=== PATIENT | male | born 1940 | race Caucasian/White ===

== ENCOUNTER → 2018-01-08 17:45 | Outpatient (CLI) | payer MEDICARE, SELFPAY ==
[2018-01-08 18:08] LABS: Absolute Lymphocyte Count 1.55 X10^3/ul (0.83-4.51); Absolute Neutrophil Count 3.4 X10^3/uL (2.0-7.7); Basophil# 0.01 X10^3/uL; Basophil% 0.2 % (0-1); Eosinophil# 0.27 X10^3/uL; Eosinophils% 4.8 % (0-5); Hematocrit 41.1 % (40-54); Hemoglobin 12.5 g/dl (13.0-16.5); Lymphocyte # 1.55 X10^3/ul (4.0); Lymphocyte % 27.4 % (19-41); Mean Corp Hgb Conc 30.4 g/gl (32-36); Mean Corpuscular Volume 88.8 fL (80-94); Mean Platelet Vol. 11.7 fl (6.2-12.0); Monocyte# 0.47 X10^3/uL; Monocyte% 8.3 % (0-10); Neutrophil # 3.36 X10^3/uL (2.7-7.7); Neutrophil % 59.3 % (47-70); Platelet Count 205 K/mm3 (150-450); RBC Distribution Width CV 13.7 % (11.6-14.6); RBC Distribution Width SD 44.5 fl (35.1-43.9); Red Blood Count 4.63 M/mm3 (4.6-6.2); White Blood Count 5.7 K/mm3 (4.4-11.0)
[2018-01-08 18:11] LABS: POSITIVE COUNT NO; POSITIVE DIFFERENTIAL NO; POSITIVE MORPHOLOGY NO
[2018-01-08 18:18] LABS: ALB/GLOB Ratio 1.1 RATIO (0.9-2.4); AST(SGOT) 12 U/L (15-37); Alanine Aminotransfer ALT/SGPT 16 U/L (16-61); Albumin, Serum 3.5 g/dL (3.2-5.0); Alkaline Phosphatase 94 U/L (45-117); Anion Gap 7 (5-15); BUN 26 mg/dL (7-18); BUN/Creat Ratio 17.4 RATIO (10-20); Calcium,Total 9.2 mg/dL (8.5-10.1); Chloride 97 mmol/L (98-107); Creatinine, Serum 1.49 mg/dL (0.70-1.30); EST Glomerular Filtration Rate 49 mL/min (>60); Est Glom Filt Rate - Afr Amer 59 mL/min (>60); Globulin 3.2 g/dL (2.2-4.2); Glucose 245 mg/dL (74-106); Potassium 3.9 mmol/L (3.5-5.1); Protein, Total 6.7 g/dL (6.4-8.2); Sodium Level 140 mmol/L (136-145)
[2018-01-08 18:31] LABS: Hemoglobin A1c 8.1 % (4.2-6.3)
[2018-01-08 18:34] LABS: Vitamin B12 335 pg/mL (211-911)
== END ==
PROVIDERS: Family Provider Family Medicine; PCP Family Medicine; Visit Provider Nurse Practitioner Adult Health
DX: I10 Essential (primary) hypertension (principal); E11.65 Type 2 diabetes mellitus with hyperglycemia; E78.2 Mixed hyperlipidemia; E56.8 Deficiency of other vitamins; E53.8 Deficiency of other specified B group vitamins
CPT/HCPCS: 80053; 82306; 82607; 83036; 85025

== ENCOUNTER → 2018-04-30 18:32 | Outpatient (CLI) | payer MEDICARE, SELFPAY ==
[2018-04-30 19:06] LABS: Hematocrit 44.3 % (40-54); Hemoglobin 13.8 g/dl (13.0-16.5); Mean Corp Hgb Conc 31.2 g/gl (32-36); Mean Corpuscular Hgb 27.9 pg (27.0-32.0); Mean Corpuscular Volume 89.7 fL (80-94); Mean Platelet Vol. 11.2 fl (6.2-12.0); Platelet Count 226 K/mm3 (150-450); Red Blood Count 4.94 M/mm3 (4.6-6.2); White Blood Count 5.6 K/mm3 (4.4-11.0)
[2018-04-30 19:07] LABS: Scan Indicated on CBC? Y/N NO
[2018-04-30 19:19] LABS: Vitamin B12 443 pg/mL (211-911); Vitamin D,25 Hydroxy 32.3 ng/mL (29.95-100.01)
[2018-04-30 19:22] LABS: ALB/GLOB Ratio 1.2 RATIO (0.9-2.4); AST(SGOT) 14 U/L (15-37); Alanine Aminotransfer ALT/SGPT 18 U/L (16-61); Albumin, Serum 3.8 g/dL (3.2-5.0); Alkaline Phosphatase 106 U/L (45-117); BUN 21 mg/dL (7-18); Chloride 101 mmol/L (98-107); EST Glomerular Filtration Rate 52 mL/min (>60); Est Glom Filt Rate - Afr Amer 63 mL/min (>60); Globulin 3.3 g/dL (2.2-4.2); Glucose 153 mg/dL (74-106); Potassium 4.2 mmol/L (3.5-5.1); Protein, Total 7.1 g/dL (6.4-8.2); Sodium Level 140 mmol/L (136-145)
[2018-04-30 19:23] LABS: Anion Gap 6 (5-15)
[2018-04-30 19:27] LABS: Hemoglobin A1c 7.5 % (4.2-6.3)
== END ==
PROVIDERS: Family Provider Family Medicine; PCP Family Medicine; Referring Provider Nurse Practitioner Adult Health; Visit Provider Nurse Practitioner Adult Health
DX: I10 Essential (primary) hypertension (principal); E11.65 Type 2 diabetes mellitus with hyperglycemia; E56.8 Deficiency of other vitamins; E53.8 Deficiency of other specified B group vitamins
CPT/HCPCS: 80053; 82306; 82607; 83036; 85027

== ENCOUNTER 2018-05-10 21:08 | Inpatient (IN) | payer MEDICARE, MEDICAID, SELFPAY ==
[2018-05-10] VITALS (7 sets, daily range): BP systolic 138–166; BP diastolic 60–114; PULSE 65–91; RESP 15–20; TEMP 37; O2SAT 93–96; BMI 36.1
--- NOTE | 2018-05-10 21:29 | EKG12_ITS ---
Test Reason : Blood Pressure : / mmHG Vent. Rate : 066 BPM Atrial Rate : 066 BPM P-R Int : 162 ms QRS Dur : 098 ms QT Int : 426 ms P-R-T Axes : 013 093 098 degrees QTc Int : 446 ms Normal sinus rhythm Rightward axis Low voltage QRS Nonspecific T wave abnormality Poor R wave progression Abnormal ECG Confirmed by MATTHEW MARIA, DEVI ([id number]), video news editor OSMAR PACHECO ([id number]) on 05/11/2018 9:55:14 AM Referred By: Gerri Griffin Confirmed By:DEVI CASTRO MD
[2018-05-10 21:52] LABS: Basophil# 0.02 X10^3/uL; Basophil% 0.2 % (0-1); Eosinophils% 2.2 % (0-5); Hematocrit 39.5 % (40-54); Hemoglobin 11.8 g/dl (13.0-16.5); Lymphocyte % 17.8 % (19-41); Mean Corp Hgb Conc 29.9 g/gl (32-36); Mean Corpuscular Hgb 27.6 pg (27.0-32.0); Mean Corpuscular Volume 92.5 fL (80-94); Mean Platelet Vol. 10.2 fl (6.2-12.0); Monocyte# 1.04 X10^3/uL; Monocyte% 11.6 % (0-10); Neutrophil # 5.96 X10^3/uL (2.7-7.7); Neutrophil % 66.3 % (47-70); POSITIVE COUNT NO; POSITIVE DIFFERENTIAL NO; POSITIVE MORPHOLOGY NO; Platelet Count 243 K/mm3 (150-450); RBC Distribution Width CV 13.3 % (11.6-14.6); RBC Distribution Width SD 43.8 fl (35.1-43.9); Red Blood Count 4.27 M/mm3 (4.6-6.2)
[2018-05-10] MEDS: Ipratropium/Albuterol Sulfate 3 ML AMPUL.NEB INHALATION (21:55)
[2018-05-10] MEDS: 0.9% Normal Saline 1,000 ML 150 ML IV (21:55)
[2018-05-10] MEDS: Albuterol 2.5 MG/3 ML VIAL.NEB. INHALATION ×2 (21:56)
[2018-05-10 22:00] LABS: International Normalized Ratio 1.1
--- NOTE | 2018-05-10 22:10 | RAD_ITS ---
STUDY: X-RAY CHEST REASON FOR EXAM: Male, 78 years old. Generalized weakness being treated for pneumonia TECHNIQUE: Acquired COMPARISON: February 27, 2016 chest x-ray FINDINGS: The lung bases are obscured on the AP view. There is focal density in the right middle lobe and probably the left lingula. A portion of this may represent prominent cardiac fat pad. There is mild cardiac enlargement. Normal mediastinum and venkat. Normal visualized pulmonary arteries. Normal visualized aortic arch and descending thoracic aorta. Normal visualized thoracic spine. Normal visualized ribs, clavicles, and shoulders. There is no demonstrated abnormality of the visualized soft tissue structures of the upper abdomen. RAD/Chest PA and Lateral IMPRESSION: Limited study with partial visualization of a right middle lobe infiltrate. Cannot exclude left lingular infiltrate. Findings are similar to the prior study. This may represent chronic atelectasis and/or infiltrate versus recurrence. Recommend consideration for follow up CT scan of the chest for clarification when appropriate. Electronically Signed: Jennifer Ott MD at 22:37 EDT Tel , Service support ,
[2018-05-10 22:19] LABS: BNP,B-Type NATRIURETIC PEPTIDE 31.1 pg/mL (0-100)
[2018-05-10 22:31] LABS: BUN 19 mg/dL (7-18); Creatinine, Serum 1.19 mg/dL (0.70-1.30); Glucose 272 mg/dL (74-106)
[2018-05-10 22:32] LABS: ALB/GLOB Ratio 0.6 RATIO (0.9-2.4); AST(SGOT) 9 U/L (15-37); Alanine Aminotransfer ALT/SGPT 15 U/L (16-61); Albumin, Serum 2.8 g/dL (3.2-5.0); Alkaline Phosphatase 93 U/L (45-117); Anion Gap 4 (5-15); Calcium,Total 9.1 mg/dL (8.5-10.1); Chloride 91 mmol/L (98-107); EST Glomerular Filtration Rate 63 mL/min (>60); Est Glom Filt Rate - Afr Amer 76 mL/min (>60); Estimated Creatinine Clearance 57.06 ml/min; Globulin 4.4 g/dL (2.2-4.2); Potassium 3.7 mmol/L (3.5-5.1); Protein, Total 7.2 g/dL (6.4-8.2); Sodium Level 136 mmol/L (136-145)
[2018-05-10 22:44] LABS: Lactic Acid 0.9 mmol/L (0.4-2.0)
[2018-05-10 22:56] LABS: Bacteria 0 SEEN /hpf (None Seen); Mucous, Urine 0 SEEN /hpf (<or=2+)
--- NOTE | 2018-05-10 22:58 | ED.DCSUM_ITS ---
- ER Visit Summary Date of Service: 05/10/18 Chief Complaint: Shortness of breath, delirious History of Present Illness: The patient is a 78 M with history of severe COPD, diabetes and hypertension with recurrent pneumonia who presents for 1 week of worsening shortness of breath and delirious. Patient was sent in by his primary care provider who evaluated him today and was concerned for episodes of delirium, increased need for his nebulizer this week, vomiting for 2 days, and recurrent pneumonia. Last antibiotic use was 2 weeks ago and was Levaquin. Patient's states that he has been hallucinating and having increased confusion. He has shortness of breath, productive cough and fever. Patient has had increased oxygen requirement at night and is normally on 3 L nasal cannula but is had it turned up to 4. Physical Examination: Vital signs: afebrile, hemodynamically stable, on 4 L nasal cannula at 93%, hypoxia General: well nourished, well developed, in mild distress Skin: warm, dry, no rash, no pallor HEENT: normocephalic and atraumatic; PERRL, EOMI, moist mucous membranes Cardiovascular: regular rate and rhythm without murmurs, no pitting peripheral edema, 2+ pulses all distal extremities Respiratory: Mild increased work of breathing, moist coarse cough, lungs are diminished left greater than right with rhonchi noted on the right Abdominal: Abdomen is soft, nontender with normoactive bowel sounds, no guarding or rebound, no masses MSK: Moves all extremities, no deformities, normal strength Neuro: Awake and alert, oriented ?4. No facial droop, sensation and motor function intact and symmetric Test Results: Abnormal Lab Results 05/10/18 05/10/18 05/10/18 21:39 21:39 21:39 WBC 9.0 RBC 4.27 L Hgb 11.8 L Hct 39.5 L MCV 92.5 MCH 27.6 MCHC 29.9 L RDW 13.3 RDW Differential 43.8 Plt Count 243 MPV 10.2 Immature Gran % (Auto) 1.900 H Neut % (Auto) 66.3 Lymph % (Auto) 17.8 L [place] % (Auto) 11.6 H Eos % (Auto) 2.2 Baso % (Auto) 0.2 Absolute Neuts (auto) 6.0 Absolute Lymphs (auto) 1.60 Total Counted Not Reportable PT 14.0 INR 1.1 APTT 33.0 Sodium 136 Potassium 3.7 Chloride 91 L Carbon Dioxide 41.0 H Anion Gap 4 L BUN 19 H Creatinine 1.19 Estim Creat Clear Calc 57.06 Est GFR (MDRD) Af Amer 76 Est GFR (MDRD) Non-Af 63 BUN/Creatinine Ratio 16.0 Glucose 272 H Lactic Acid Calcium 9.1 Total Bilirubin 0.20 AST 9 L ALT 15 L Alkaline Phosphatase 93 Troponin I < 0.015 B-Natriuretic Peptide Total Protein 7.2 Albumin 2.8 L Globulin 4.4 H Albumin/Globulin Ratio 0.6 L 05/10/18 05/10/18 21:39 21:39 WBC RBC Hgb Hct MCV MCH MCHC RDW RDW Differential Plt Count MPV Immature Gran % (Auto) Neut % (Auto) Lymph % (Auto) [place] % (Auto) Eos % (Auto) Baso % (Auto) Absolute Neuts (auto) Absolute Lymphs (auto) Total Counted PT INR APTT Sodium Potassium Chloride Carbon Dioxide Anion Gap BUN Creatinine Estim Creat Clear Calc Est GFR (MDRD) Af Amer Est GFR (MDRD) Non-Af BUN/Creatinine Ratio Glucose Lactic Acid 0.9 Calcium Total Bilirubin AST ALT Alkaline Phosphatase Troponin I B-Natriuretic Peptide 31.1 Total Protein Albumin Globulin Albumin/Globulin Ratio Clinical Impression(s) from Imaging Studies Chest X-Ray 05/10/18 22:10 IMPRESSION: Limited study with partial visualization of a right middle lobe infiltrate. Cannot exclude left lingular infiltrate. Findings are similar to the prior study. This may represent chronic atelectasis and/or infiltrate versus recurrence. Recommend consideration for follow up CT scan of the chest for clarification when appropriate. Electronically Signed: Jennifer Ott MD at 22:37 EDT Tel , Service support , Medications Given Sodium Chloride () 1,000 mls @ 150 mls/hr IV .Q6H40M LEFTY Last Admin: 05/10/18 21:55 Dose: 150 mls/hr Azithromycin 500 mg/ Dextrose 255 mls @ 250 mls/hr IV X1 ONE Stop: 05/10/18 23:53 Ceftriaxone Sodium (Rocephin) 1 gm in 50 mls @ 100 mls/hr IV X1 ONE Stop: 05/10/18 23:21 Discontinued Medications Albuterol Sulfate (Ventolin Aerosols) 2.5 mg INHALATION Q20M LEFTY Stop: 05/10/18 22:11 Last Admin: 05/10/18 21:56 Dose: 2.5 mg Admin: 05/10/18 21:56 Dose: 2.5 mg Albuterol/Ipratropium (Duoneb) 3 ml INHALATION X1 ONE Stop: 05/10/18 21:31 Last Admin: 05/10/18 21:55 Dose: 3 ml Emergency Department Course and Treatment: Patient presents with worsening shortness of breath, increased oxygen requirement at home, and concern for recurrent pneumonia. Patient is having delirium, worse at night, with some visual hallucinations. Patient's lung exam is concerning for COPD exacerbation and possible pneumonia, with coarse rhonchi on the right. She was given breathing treatments. CBC showed no leukocytosis but was positive for bandemia. Troponin negative. EKG showed a sinus rhythm without ischemia or ectopy. Lactate normal. BNP was within normal limits. Chest x-ray showed a right middle lobe and a left lingular infiltrate. Patient was started on Rocephin and azithromycin IV. His last antibiotic he had been on per the patient was Levaquin. Patient has failed outpatient treatment for pneumonia and given multiple medical comorbidities, he will require IV antibiotics and inpatient management. Patient did have a questionable nonsustained run of V. tach while in the emergency department that was noted on the monitor. Patient had no symptoms associated with it. Patient thought it happened because he was tapping his arm against the bed rail while watching walker [place], however when asking patient to reproduce the movement he was making, there was no artifact on the monitor. Patient was watched closely and had no further ectopy. Patient will be discussed with the hospitalist for admission. Treatment Plan: [] Disposition: [] Impression: Right middle lobe and left lingular pneumonia, failed outpatient treatment, nonsustained episode of asymptomatic V. tach This note was generated with Docstocation software. It may contain incorrect words, spelling, and punctuation that were not noted in review of the chart prior to signing ED Disposition - Plan for ED Patient: Chief Complaint: Weakness Referrals: Gerri Griffin, [employer] SCANNER OPERATOR-C [Primary Care Provider] -
[2018-05-10 22:59] LABS: Color, Urine Yellow (Yellow); Glucose, Dipstick Normal (Normal); Ketone-Dipstick 5 mg/dl (Negative); Leukocyte Esterase-Dipstick 25 /ul (Negative); Nitrite-Dipstick Negative (Negative); Occult Blood-Urine Negative /ul (Negative); Protein-Dipstick 100 mg/dl (Negative); Urine Bilirubin Dipstick Negative (Negative); Urine Clarity Clear (Clear); Urine Urobilinogen Normal (Normal)
[2018-05-10 23:05] LABS: White Blood Cells 0-5 SEEN /hpf (0-5)
[2018-05-10 23:06] LABS: Red Blood Cells-Urine 0 SEEN /hpf (0-5); Squamous Epithelial Cells - UA 5-10 SEEN /hpf (0-5)
[2018-05-10] MEDS: Ceftriaxone 1 GM/50 ML BAG IV (23:22)
--- NOTE | 2018-05-10 23:22 | PCM.HP.STD ---
Problem List (1) Bilateral pneumonia Status: Acute (2) DM type 2 (diabetes mellitus, type 2) Status: Chronic (3) Chronic obstructive lung disease Status: Chronic (4) CKD (chronic kidney disease), stage III Status: Chronic History of Present Illness Date of Admission: 05/10/18 Chief Complaint: shortness of breath The patient is a 78 year old M with a significant history of type 2 diabetes; COPD; CKD stage III who presents with persistent increased shortness of breath above his baseline for about the one month. He reports a productive cough with greenish sputum. Associated with symptoms is delirium, weakness and visual hallucinations. Patient has received 2 courses of antibiotics without improvement. Outpatient antibiotics was Levaquin. Although patient uses 3 L [id number] oxygen he has had to increase his oxygen requirement to 4 L. Because of the persistence of his symptoms his PCP recommended that he come to the emergency department and he was subsequently admitted. Past Medical History Past Medical History (Chronic Problems): Chronic Problems Morbid obesity (Chronic) Dyslipidemia (Chronic) DM type 2 (diabetes mellitus, type 2) (Chronic) Chronic respiratory failure (Chronic) Chronic obstructive lung disease (Chronic) CKD (chronic kidney disease), stage III (Chronic) Allergies codeine Adverse Reaction (Verified 05/10/18 21:09) confused lisinopril Adverse Reaction (Verified 05/10/18 21:09) Other BETA DEAN Allergy (Uncoded 05/10/18 21:09) Hives PAIN MEDICATION Allergy (Uncoded 05/10/18 21:09) Itching Home Medications: Ambulatory Orders Medication Instructions Recorded Budesonide/Formoterol 160/4.5 2 puff INHALATION BID 09/01/13 [Symbicort 160/4.5 Mcg Inhaler (SP)] Furosemide [Lasix] 80 mg PO QODAY 09/01/13 Gabapentin [Neurontin] 800 mg PO BID 09/01/13 NIFEdipine [Procardia XL] 90 mg PO DAILY 09/01/13 Tiotropium [place] [Spiriva 18 MCG] 1 puff INHALATION DAILY 09/01/13 Albuterol Inhaler [Ventolin Hfa] 1 - 2 puff INHALATION Q6H PRN PRN 05/01/14 Bimatoprost [Lumigan Opthalmic] 1 drop EACH EYE QHS 05/01/14 Ipratropium/Albuterol Sulfate 3 ml INHALATION Q6HWA.RT 05/01/14 [Duoneb] Ascorbic Acid [Vitamin C] 1,000 mg PO DAILY@0800 07/28/15 Multivitamin [Daily Multiple 1 each PO DAILY 07/28/15 Vitamin] Aspirin [Aspirin, Baby] 81 mg PO DAILY@0800 10/28/15 Calcium Carbonate/Vitamin D3 1 each PO DAILY 10/28/15 [Oyster Shell Calcium + D Cplt] Fexofenadine HCl [Children's 180 mg PO DAILY 10/28/15 Fay Allergy] Fish Oil 1,200 mg PO BID 10/28/15 Olopatadine HCl [Patanol] 1 drop EACH EYE BID 10/28/15 Famotidine 20 mg PO QHS 05/10/18 Furosemide [Lasix] 60 mg PO QODAY 05/10/18 Guaifenesin [Mucinex] 600 mg PO BID 05/10/18 Polyethylene Glycol 3350 [Miralax] 17 gm PO DAILY 05/10/18 traMADol [Ultram (G)] 50 mg PO QHS 05/10/18 Docusate Calcium [Surfak] 240 mg PO BID 05/11/18 Surgical History: total hip arthroplasty, - - Prostate surgery Psychiatric History: No pertinent psych hx Lives: Spouse/ Significant Other Smoking Status: Former smoker - *Family History Maternal History Items: - - Patient does not know. Paternal History Items: Diabetes Review of Systems Constitutional: Reports: Anorexia, Weight Change - Reports intentional weight loss of about 60 pounds. HEENT: Denies: Head Aches, Sinus Congestion, Sinus Drainage Cardiovascular: Denies: Chest Pain, Palpitations Respiratory: Reports: Cough, Shortness of Breath, Sputum production Gastrointestinal: Denies: Abdominal Pain, Nausea, Vomiting Genitourinary: Denies: Dysuria Musculoskeletal: Denies: Muscle pain, Neck Pain Skin: Denies: Rash, Wounds Neurological: Denies: Numbness, Tingling, Focal weakness Psychiatric: Denies: Anxiety, Depression, Homicidal Ideations, Suicidal Ideations Hematologic/ Lymphatic: Denies: Easy Bruising, Easy Bleeding VTE Information - Inpt Only VTE Present on Admission: No VTE Mechan Device Prophylaxis: None VTE Pharm Prophylaxis ordered?: Yes Patient Problems: Active and Suspected Problems Bilateral pneumonia (Acute) - Physical Exam General: Alert, Oriented x3, Cooperative HEENT: Atraumatic, PERRLA, EOMI, Normocephalic Neck: Supple, No JVD, Negative Carotid Bruits Lungs: Diminished, Tachypneic Cardiovascular: Regular rate, No murmurs Abdomen: Bowel Sounds Present, Soft, Non Tender Extremities: No edema, Capillary Refill Less than 3 Seconds Skin: No rashes, No breakdown Musculoskeletal: No Tenderness to Palpation of Joints or Extremities Neurological: Cranial nerves II-XII grossly intact Psych/Mental Status: Normal Affect, Appropriate Vital Signs Temp Pulse Resp BP Pulse Ox 98.6 F 73 15 138/114 H 94 05/10/18 21:42 05/10/18 23:00 05/10/18 23:00 05/10/18 23:00 05/10/18 23:00 Oxygen Flow Rate (L/min) 4 Oxygen Delivery Method Nasal Cannula Weight: 120.9 kg Body Mass Index (BMI) 36.1 Laboratory Tests Past 24 Hrs 05/10/18 05/10/18 05/10/18 21:39 21:39 21:39 WBC 9.0 RBC 4.27 L Hgb 11.8 L Hct 39.5 L MCV 92.5 MCH 27.6 MCHC 29.9 L RDW 13.3 RDW Differential 43.8 Plt Count 243 MPV 10.2 Immature Gran % (Auto) 1.900 H Neut % (Auto) 66.3 Lymph % (Auto) 17.8 L [place] % (Auto) 11.6 H Eos % (Auto) 2.2 Baso % (Auto) 0.2 Absolute Neuts (auto) 6.0 Absolute Lymphs (auto) 1.60 Total Counted Not Reportable PT 14.0 INR 1.1 APTT 33.0 Sodium 136 Potassium 3.7 Chloride 91 L Carbon Dioxide 41.0 H Anion Gap 4 L BUN 19 H Creatinine 1.19 Estim Creat Clear Calc 57.06 Est GFR (MDRD) Af Amer 76 Est GFR (MDRD) Non-Af 63 BUN/Creatinine Ratio 16.0 Glucose 272 H Lactic Acid Calcium 9.1 Total Bilirubin 0.20 AST 9 L ALT 15 L Alkaline Phosphatase 93 Troponin I < 0.015 B-Natriuretic Peptide Total Protein 7.2 Albumin 2.8 L Globulin 4.4 H Albumin/Globulin Ratio 0.6 L Urine Color Urine Clarity Urine pH Ur Specific [place] Urine Protein Urine Glucose (UA) Urine Ketones Urine Occult Blood Urine Nitrite Urine Bilirubin Urine Urobilinogen Ur Leukocyte Esterase Urine RBC Urine WBC Ur Squamous Epith Cells Urine Bacteria Urine Mucus 05/10/18 05/10/18 05/10/18 21:39 21:39 22:50 WBC RBC Hgb Hct MCV MCH MCHC RDW RDW Differential Plt Count MPV Immature Gran % (Auto) Neut % (Auto) Lymph % (Auto) [place] % (Auto) Eos % (Auto) Baso % (Auto) Absolute Neuts (auto) Absolute Lymphs (auto) Total Counted PT INR APTT Sodium Potassium Chloride Carbon Dioxide Anion Gap BUN Creatinine Estim Creat Clear Calc Est GFR (MDRD) Af Amer Est GFR (MDRD) Non-Af BUN/Creatinine Ratio Glucose Lactic Acid 0.9 Calcium Total Bilirubin AST ALT Alkaline Phosphatase Troponin I B-Natriuretic Peptide 31.1 Total Protein Albumin Globulin Albumin/Globulin Ratio Urine Color Yellow Urine Clarity Clear Urine pH 5.0 Ur Specific [place] 1.020 Urine Protein 100 H Urine Glucose (UA) Normal Urine Ketones 5 H Urine Occult Blood Negative Urine Nitrite Negative Urine Bilirubin Negative Urine Urobilinogen Normal Ur Leukocyte Esterase 25 H Urine RBC 0 SEEN Urine WBC 0-5 SEEN Ur Squamous Epith Cells 5-10 SEEN Urine Bacteria 0 SEEN Urine Mucus 0 SEEN Assessment/Plan All Active Problems Bilateral pneumonia (Acute) Shortness of breath (Acute) The patient is a 78 year old M with a significant history of heart failure with preserved ejection fraction; type 2 diabetes; COPD; CKD stage III who presents with persistent increased shortness of breath above his baseline; weakness; delirium and visual hallucination; increased oxygen requirements and a presumed failure of outpatient antibiotics for community-acquired pneumonia. Acute hypoxic respiratory failure secondary to pneumonia Patient failed outpatient antibiotics. CURB-65 is 2 points (confusion; age more than 65) White count is unremarkable; however patient with bandemia. CO2 is 41; shows chronic CO2 retention. Received breathing treatment; ceftriaxone and azithromycin at the emergency department Ceftriaxone and azithromycin continued Scheduled DuoNeb and as needed albuterol. Chest x-ray independently reviewed confirms bilateral infiltrates. BNP is unremarkable. Likely the bilateral infiltrate is pneumonia. Patient having failed outpatient treatment of pneumonia; and because of significant history of smoking agrees with radiology recommendation of CT scan of chest. CT scan chest ordered. Incentive spirometer and chest physiotherapy ordered. Blood cultures are pending. Sputum culture ordered. Streptococcus antigen and Legionella antigen ordered. Mycoplasma IgM and IgG ordered. Trend CBC and BMP. PT and OT for weakness Diabetes mellitus Blood glucose was not within goal at the time of admission Home basal insulin continued. Patient also reports taking correction scale insulin at home. Correction scale insulin continued. Diabetic diet. COPD Does not appear to be in acute COPD exacerbation Home breathing treatments continued Scheduled DuoNeb and as needed albuterol as above. Elevated blood pressure without diagnosis of hypertension. Blood pressure on admission was not within goal. Trend blood pressures. CKD stage III Creatinine on admission was 1.19 that could be considered as his baseline. Trend BMP. Heart failure with preserved ejection fraction Home Lasix continued DVT prophylaxis Subcutaneous heparin. Code Visit Inpatient E&M: 60187 Init Hosp L3
[2018-05-11] VITALS (14 sets, daily range): BP systolic 135–156; BP diastolic 58–67; PULSE 64–81; RESP 16–20; TEMP 36.7–37.1; O2SAT 92–94; BMI 38.6
--- NOTE | 2018-05-11 00:33 | CT_ITS ---
STUDY: CT CHEST WITH CONTRAST REASON FOR EXAM: Male, 78 years old. Shortness of breath RADIATION DOSAGE (If Supplied By Facility): CTDIvol = ( 20.05 ) mGy, DLP = ( 785.35 ) mGycm TECHNIQUE: Transaxial imaging was performed following intravenous administration of 100 ml of Isovue 300 contrast material. Individualized dose optimization techniques were used for this CT. COMPARISON: None. FINDINGS: Diffuse bilateral peribronchial nodular groundglass infiltration with bronchiolar wall thickening. Minimal patchy consolidation within the lingula. Mild bibasilar atelectasis. No pleural effusion or pneumothorax. Borderline cardiomegaly. Pericardium is normal. Shotty mediastinal and bilateral hilar lymph nodes. No definitive central pulmonary embolism. Thoracic aorta demonstrates no aneurysmal dilatation. There is mild atheromatous and atherosclerotic plaque formation involving the aortic arch and descending thoracic aorta. Moderate multilevel degenerative change of the spine. Normal osseous structures. There is no demonstrated abnormality of the visualized upper abdomen. CT/Chest WITH Contrast IMPRESSION: Diffuse bilateral peribronchial nodular groundglass infiltration with bronchiolar wall thickening, with patchy consolidation versus atelectasis in the lingula, and with reactive mediastinal and hilar lymphadenopathy. Electronically Signed: Luis Alfredo De Leon MD at 3:45 EDT Tel , Service support ,
[2018-05-11] MEDS: Ipratropium/Albuterol Sulfate 3 ML AMPUL.NEB INHALATION ×2 (05:17→11:46)
[2018-05-11] MEDS: Budesonide Respules 0.5 MG/2 ML AMPUL.NEB. INHALATION (05:17)
[2018-05-11 06:44] LABS: Anion Gap 7 (5-15); BUN 21 mg/dL (7-18); BUN/Creat Ratio 17.6 RATIO (10-20); Calcium,Total 9.3 mg/dL (8.5-10.1); Chloride 90 mmol/L (98-107); Creatinine, Serum 1.19 mg/dL (0.70-1.30); EST Glomerular Filtration Rate 63 mL/min (>60); Est Glom Filt Rate - Afr Amer 76 mL/min (>60); Estimated Creatinine Clearance 57.06 ml/min; Glucose 212 mg/dL (74-106); Potassium 3.8 mmol/L (3.5-5.1); Sodium Level 138 mmol/L (136-145)
[2018-05-11 07:01] LABS: Bedside Glucose 183 mg/dL (70-110)
[2018-05-11] MEDS: Insulin Lispro 100 UNIT/ML INSULN.PEN SQ ×4 (07:30→22:54)
[2018-05-11] MEDS: Aspirin 81 MG TAB.CHEW PO (07:30)
[2018-05-11] MEDS: Multivitamins,Therapeutic Tablet 1 TABLET PO (07:30)
[2018-05-11] MEDS: Ascorbic Acid 500 MG Tablet 1000 MG PO (07:30)
[2018-05-11] MEDS: Glucerna Shake 120 ML LIQUID PO (07:30)
[2018-05-11] MEDS: NIFEdipine 90 MG Tablet PO (10:01)
[2018-05-11] MEDS: Calcium Carb/Vitamin D 1 TABLET Tablet PO (10:01)
[2018-05-11] MEDS: Heparin Injection (Vial) 5,000 UNIT/ML VIAL 5000 UNIT SC ×2 (10:02→22:53)
[2018-05-11] MEDS: Senna/Docusate Sodium 1 Tablet 2 TABLET PO ×2 (10:02→22:56)
[2018-05-11] MEDS: Furosemide 40 MG Tablet 60 MG PO (10:02)
[2018-05-11] MEDS: Gabapentin 800 MG Tablet PO ×2 (10:02→22:55)
[2018-05-11] MEDS: Loratadine 10 MG Tablet PO (10:02)
[2018-05-11] MEDS: guaiFENesin 1,200 MG Tablet 1200 MG PO ×2 (10:02→22:55)
[2018-05-11] MEDS: Polyethylene Glycol 3350 17 GM PACKET PO (10:03)
--- NOTE | 2018-05-11 11:12 | CASEMGMT ---
CHELLE called [facility] and patient's Surfboard Maker is Carole Tristan. He gets aide services through [facility] 9 hours a week, 14 meals a week from [facility], and he has a medical alert button. CHELLE notified LEIF CM. Emiliana TAPIA HEALTH AND SAFETY INSPECTOR
[2018-05-11 11:21] LABS: Bedside Glucose 252 mg/dL (70-110)
[2018-05-11 11:36] LABS: Base Excess 19 mmol/L (-2 to +2); Bicarbonate 44.3 mmol/L (22-26); Blood Gas Specimen Type ART; O2 Delivery Device Nasal Can; PO2 61 mmHG (75-100); SITE R Radial; SO2 89 % (95-99); Time Given 1127; Total Carbon Dioxide 47 mmol/L; pCO2 76.1 mmHg (35-45); pH 7.37 (7.35-7.45)
--- NOTE | 2018-05-11 12:02 | CASEMGMT ---
RN CM assessment: Face to Face with patient for initial transition planning/care coordination assessment. RN CM introduced self and role at [facility], pt/ voice understanding and pt consents to assessment at this time. Pt is sitting up on side of bed with venti mask in place in no distress at this time. Pt is A/Ox4 at this time and answers all questions appropriately at this time. Pt/ are forgetful regarding names at times. Care providers, pharmacy, and demographics verified/updated at this time. PCP: Gerri Griffin Specialists: Roxy; pt states also sees a cancer dr at [facility] but can't remember name at this time. Preferred Pharmacy: [facility] [place] Insurance: [facility] Prescription Benefit: [facility] Living Will/HPOA: Pt states does not currently have LW/HPOA and declines info at this time. LNOK: Jammie Skaggs, ; Shivam Skaggs, son Living Arrangements: Pt states lives with in a 1 story condo and states no concerns at home at this time. Pt has aides set up through [employer] 9hrs/week through [facility]. Pt's CM is Carole Tristan. Pt also has 14 meals set up/week through [employer]. Transportation: Pt states that him and his are basically homebound and do not go out much. Pt states that his brother drives them when needed and states no transportation concerns at this time. DME/HHC: Pt states has the following DME: shower chair, grab bars, raised toilet seat, walker, w/c, medical alert button, and home oxygen 3 liters 02/02 through [facility]. Pt states no need for any further DME at this time. Pt states that he is interested in having HHC set up for RN and possibly PT/OT at discharge through [facility]. Pt states no hx SNF placement and is not interested in this at this time. CM to follow therapy notes and for any further discharge planning/needs at this time. Pt states concerns with med management and agrees to referral to [facility] at this time after explanation done. [facility] to [place] [facility]. Pt states no concerns with going home at time of discharge. Pt states is retired. Pt states does not smoke or drink ETOH. Pt states no further concerns/needs at this time. Pt states him and his have 'poor memory.' Advised pt/ to ask for CM if any further questions/concerns/needs arise, voices understanding. Plan: Home w/ resumption of passport and CCN referral. Sergo YADAV CM
--- NOTE | 2018-05-11 12:02 | CPS ---
Bipap was discussed with pt per request of Rosamaria Barker. Pt states he would not wear a Bipap machine if we brought on in for him.
[2018-05-11] MEDS: Dorzolamide 2% 10ml Bottle 1 DRP EACH EYE ×2 (12:30→22:56)
--- NOTE | 2018-05-11 13:13 | PCM.PROGNOTE ---
<Rosamaria Barker - Last Filed: 05/11/18 13:37> Patient Problems: Active and Suspected Problems Bilateral pneumonia (Acute) Subjective: Patient seen and examined. Reports difficulty sleeping overnight due to persistent cough, intermittently productive. Denies fever, chills. Complains of generalized weakness. States shortness of breath is about the same. Chronically wears 3 L nasal cannula continuously at home. Reports he is noncompliant with recommended BiPAP. - Physical Exam General: Alert, Oriented x3, Cooperative HEENT: Atraumatic, PERRLA, EOMI, Normocephalic Neck: Supple, No JVD, Negative Carotid Bruits Lungs: Diminished, Rhonchi, - - Crackles Cardiovascular: Regular rate, Regular Rhythm, Normal S1, Normal S2, No murmurs Abdomen: Bowel Sounds Present, Soft, Non Tender, Non-Distended, Obese Extremities: No clubbing, No cyanosis, Edema - Bilateral lower extremity Skin: No rashes, No breakdown Musculoskeletal: No Tenderness to Palpation of Joints or Extremities Neurological: Cranial nerves II-XII grossly intact, Neuro grossly intact Psych/Mental Status: Normal Affect, Appropriate Vital Signs Temp Pulse Resp BP Pulse Ox 98.7 F 64 16 156/58 H 94 05/11/18 10:01 05/11/18 11:46 05/11/18 11:46 05/11/18 10:01 05/11/18 11:46 Oxygen Flow Rate (L/min) 4 Oxygen Delivery Method Venturi Mask Weight: 284 lb 13.396 oz Body Mass Index (BMI) 38.6 Intake and Output for Last 24 Hours 05/09/18 05/10/18 05/11/18 23:59 23:59 23:59 Intake Total 1882 / 1882 Output Total 250 / 250 Balance 1632 / 1632 Microbiology Past 72 Hours 05/10/18 22:50 Streptococcus pneumoniae Antigen (M - Final Urine, Clean Catch 05/10/18 22:50 Legionella Antigen - Final Urine, Clean Catch Laboratory Tests Past 24 Hrs 05/10/18 05/10/18 05/10/18 21:39 21:39 21:39 WBC 9.0 RBC 4.27 L Hgb 11.8 L Hct 39.5 L MCV 92.5 MCH 27.6 MCHC 29.9 L RDW 13.3 RDW Differential 43.8 Plt Count 243 MPV 10.2 Immature Gran % (Auto) 1.900 H Neut % (Auto) 66.3 Lymph % (Auto) 17.8 L [place] % (Auto) 11.6 H Eos % (Auto) 2.2 Baso % (Auto) 0.2 Absolute Neuts (auto) 6.0 Absolute Lymphs (auto) 1.60 Total Counted Not Reportable PT 14.0 INR 1.1 APTT 33.0 Specimen Type Sample Site pH Bicarbonate Actual POC Total CO2 Base Excess O2 Saturation ABG pCO2 ABG pO2 O2 Delivery Device Liter Flow Blood Gas Notified Whom Blood Gas Notified Time Sodium 136 Potassium 3.7 Chloride 91 L Carbon Dioxide 41.0 H Anion Gap 4 L BUN 19 H Creatinine 1.19 Estim Creat Clear Calc 57.06 Est GFR (MDRD) Af Amer 76 Est GFR (MDRD) Non-Af 63 BUN/Creatinine Ratio 16.0 Glucose 272 H Lactic Acid Calcium 9.1 Total Bilirubin 0.20 AST 9 L ALT 15 L Alkaline Phosphatase 93 Troponin I < 0.015 B-Natriuretic Peptide Total Protein 7.2 Albumin 2.8 L Globulin 4.4 H Albumin/Globulin Ratio 0.6 L Urine Color Urine Clarity Urine pH Ur Specific [place] Urine Protein Urine Glucose (UA) Urine Ketones Urine Occult Blood Urine Nitrite Urine Bilirubin Urine Urobilinogen Ur Leukocyte Esterase Urine RBC Urine WBC Ur Squamous Epith Cells Urine Bacteria Urine Mucus Mycoplasma pneumon IgG Mycoplasma pneumon IgM 05/10/18 05/10/18 05/10/18 21:39 21:39 22:50 WBC RBC Hgb Hct MCV MCH MCHC RDW RDW Differential Plt Count MPV Immature Gran % (Auto) Neut % (Auto) Lymph % (Auto) [place] % (Auto) Eos % (Auto) Baso % (Auto) Absolute Neuts (auto) Absolute Lymphs (auto) Total Counted PT INR APTT Specimen Type Sample Site pH Bicarbonate Actual POC Total CO2 Base Excess O2 Saturation ABG pCO2 ABG pO2 O2 Delivery Device Liter Flow Blood Gas Notified Whom Blood Gas Notified Time Sodium Potassium Chloride Carbon Dioxide Anion Gap BUN Creatinine Estim Creat Clear Calc Est GFR (MDRD) Af Amer Est GFR (MDRD) Non-Af BUN/Creatinine Ratio Glucose Lactic Acid 0.9 Calcium Total Bilirubin AST ALT Alkaline Phosphatase Troponin I B-Natriuretic Peptide 31.1 Total Protein Albumin Globulin Albumin/Globulin Ratio Urine Color Yellow Urine Clarity Clear Urine pH 5.0 Ur Specific [place] 1.020 Urine Protein 100 H Urine Glucose (UA) Normal Urine Ketones 5 H Urine Occult Blood Negative Urine Nitrite Negative Urine Bilirubin Negative Urine Urobilinogen Normal Ur Leukocyte Esterase 25 H Urine RBC 0 SEEN Urine WBC 0-5 SEEN Ur Squamous Epith Cells 5-10 SEEN Urine Bacteria 0 SEEN Urine Mucus 0 SEEN Mycoplasma pneumon IgG Mycoplasma pneumon IgM 05/11/18 05/11/18 05/11/18 05:48 05:48 11:29 WBC RBC Hgb Hct MCV MCH MCHC RDW RDW Differential Plt Count MPV Immature Gran % (Auto) Neut % (Auto) Lymph % (Auto) [place] % (Auto) Eos % (Auto) Baso % (Auto) Absolute Neuts (auto) Absolute Lymphs (auto) Total Counted PT INR APTT Specimen Type ART Sample Site R Radial pH 7.37 Bicarbonate Actual 44.3 H POC Total CO2 47 Base Excess 19 H O2 Saturation 89 L ABG pCO2 76.1 H* ABG pO2 61 L O2 Delivery Device Nasal Can Liter Flow 4.0 Blood Gas Notified Whom [facility] Blood Gas Notified Time 1127 Sodium 138 Potassium 3.8 Chloride 90 L Carbon Dioxide 41.0 H Anion Gap 7 BUN 21 H Creatinine 1.19 Estim Creat Clear Calc 57.06 Est GFR (MDRD) Af Amer 76 Est GFR (MDRD) Non-Af 63 BUN/Creatinine Ratio 17.6 Glucose 212 H Lactic Acid Calcium 9.3 Total Bilirubin AST ALT Alkaline Phosphatase Troponin I B-Natriuretic Peptide Total Protein Albumin Globulin Albumin/Globulin Ratio Urine Color Urine Clarity Urine pH Ur Specific [place] Urine Protein Urine Glucose (UA) Urine Ketones Urine Occult Blood Urine Nitrite Urine Bilirubin Urine Urobilinogen Ur Leukocyte Esterase Urine RBC Urine WBC Ur Squamous Epith Cells Urine Bacteria Urine Mucus Mycoplasma pneumon IgG Pending Mycoplasma pneumon IgM Pending POC Glucose 05/11/18 05/11/18 10:59 06:46 POC Glucose 252 H 183 H Medical Necessity - Tobacco Use Smoking Status: Former smoker Assessment/Plan All Active Problems Bilateral pneumonia (Acute) Shortness of breath (Acute) 1. Acute on chronic hypoxic and hypercapnic respiratory failure suspected secondary to right middle lobe and left lingular pneumonia, failed outpatient treatment and underlying Chronic COPD-CT of chest on admission showed bilateral peribronchial nodular groundglass infiltration with bronchiolar wall thickening, patchy consolidation versus atelectasis in the lingula with reactive mediastinal and hilar lymphadenopathy. Chest x-ray similar to prior studies, chronic atelectasis versus infiltrate. Patient has followed with Dr. Galicia in the past. Noncompliance with follow-up and treatment recommendations. Patient states he was told to wear BiPAP in the past and refuses. ABG shows CO2 76, O2 saturation 89%. Pulmonary medicine consulted. Albuterol and DuoNeb aerosols. Encourage BiPAP. Continue IV Rocephin and azithromycin empirically. Sputum and blood cultures pending. Urine for strep and Legionella negative. IS. Continue mucinex. Possible component of CHF given no improvement with outpatient doxycycline/amoxicillin. BNP within normal limits on admission. Prior echocardiogram in 2012 with EF 55%. Repeat echo. Zane wraps bilateral lower extremities. IV Lasix 40 mg every 8. Continue supplement oxygen to maintain O2 at or above 90% 2. Chronic diastolic CHF-obtain echo as noted above. IV Lasix. 3. Acute metabolic encephalopathy-secondary to #1, elevated CO2. Encourage BiPAP. 4. Nonsustained V. tach, asymptomatic-no further episodes. Monitor telemetry. Troponin negative. 5. Type 2 diabetes [id number] before meals at bedtime with sliding scale insulin, continue Lantus regimen. 6. Hypertension-stable, continue home Procardia regimen. 7. Hyperlipidemia-continue statin. 8. Chronic kidney disease stage III-stable, trend BMP. 9. Obesity-encourage diet lifestyle modifications. Nutrition consult. DVT prophylaxis-heparin subcu. This patient was seen by ESTEBAN Gonzalez under the supervision of Dr. Baxter. <Kenneth Baxter - Last Filed: 05/11/18 14:22> - Physical Exam Vital Signs Temp Pulse Resp BP Pulse Ox 98.7 F 64 16 156/58 H 94 05/11/18 10:01 05/11/18 11:46 05/11/18 11:46 05/11/18 10:01 05/11/18 11:46 Oxygen Flow Rate (L/min) 4 Oxygen Delivery Method Venturi Mask Weight: 284 lb 13.396 oz Body Mass Index (BMI) 38.6 Intake and Output for Last 24 Hours 05/09/18 05/10/18 05/11/18 23:59 23:59 23:59 Intake Total 1882 / 1882 Output Total 250 / 250 Balance 1632 / 1632 Microbiology Past 72 Hours 05/10/18 22:50 Streptococcus pneumoniae Antigen (M - Final Urine, Clean Catch 05/10/18 22:50 Legionella Antigen - Final Urine, Clean Catch Laboratory Tests Past 24 Hrs 05/10/18 05/10/18 05/10/18 21:39 21:39 21:39 WBC 9.0 RBC 4.27 L Hgb 11.8 L Hct 39.5 L MCV 92.5 MCH 27.6 MCHC 29.9 L RDW 13.3 RDW Differential 43.8 Plt Count 243 MPV 10.2 Immature Gran % (Auto) 1.900 H Neut % (Auto) 66.3 Lymph % (Auto) 17.8 L [place] % (Auto) 11.6 H Eos % (Auto) 2.2 Baso % (Auto) 0.2 Absolute Neuts (auto) 6.0 Absolute Lymphs (auto) 1.60 Total Counted Not Reportable PT 14.0 INR 1.1 APTT 33.0 Specimen Type Sample Site pH Bicarbonate Actual POC Total CO2 Base Excess O2 Saturation ABG pCO2 ABG pO2 O2 Delivery Device Liter Flow Blood Gas Notified Whom Blood Gas Notified Time Sodium 136 Potassium 3.7 Chloride 91 L Carbon Dioxide 41.0 H Anion Gap 4 L BUN 19 H Creatinine 1.19 Estim Creat Clear Calc 57.06 Est GFR (MDRD) Af Amer 76 Est GFR (MDRD) Non-Af 63 BUN/Creatinine Ratio 16.0 Glucose 272 H Lactic Acid Calcium 9.1 Total Bilirubin 0.20 AST 9 L ALT 15 L Alkaline Phosphatase 93 Troponin I < 0.015 B-Natriuretic Peptide Total Protein 7.2 Albumin 2.8 L Globulin 4.4 H Albumin/Globulin Ratio 0.6 L Urine Color Urine Clarity Urine pH Ur Specific [place] Urine Protein Urine Glucose (UA) Urine Ketones Urine Occult Blood Urine Nitrite Urine Bilirubin Urine Urobilinogen Ur Leukocyte Esterase Urine RBC Urine WBC Ur Squamous Epith Cells Urine Bacteria Urine Mucus Mycoplasma pneumon IgG Mycoplasma pneumon IgM 05/10/18 05/10/18 05/10/18 21:39 21:39 22:50 WBC RBC Hgb Hct MCV MCH MCHC RDW RDW Differential Plt Count MPV Immature Gran % (Auto) Neut % (Auto) Lymph % (Auto) [place] % (Auto) Eos % (Auto) Baso % (Auto) Absolute Neuts (auto) Absolute Lymphs (auto) Total Counted PT INR APTT Specimen Type Sample Site pH Bicarbonate Actual POC Total CO2 Base Excess O2 Saturation ABG pCO2 ABG pO2 O2 Delivery Device Liter Flow Blood Gas Notified Whom Blood Gas Notified Time Sodium Potassium Chloride Carbon Dioxide Anion Gap BUN Creatinine Estim Creat Clear Calc Est GFR (MDRD) Af Amer Est GFR (MDRD) Non-Af BUN/Creatinine Ratio Glucose Lactic Acid 0.9 Calcium Total Bilirubin AST ALT Alkaline Phosphatase Troponin I B-Natriuretic Peptide 31.1 Total Protein Albumin Globulin Albumin/Globulin Ratio Urine Color Yellow Urine Clarity Clear Urine pH 5.0 Ur Specific [place] 1.020 Urine Protein 100 H Urine Glucose (UA) Normal Urine Ketones 5 H Urine Occult Blood Negative Urine Nitrite Negative Urine Bilirubin Negative Urine Urobilinogen Normal Ur Leukocyte Esterase 25 H Urine RBC 0 SEEN Urine WBC 0-5 SEEN Ur Squamous Epith Cells 5-10 SEEN Urine Bacteria 0 SEEN Urine Mucus 0 SEEN Mycoplasma pneumon IgG Mycoplasma pneumon IgM 05/11/18 05/11/18 05/11/18 05:48 05:48 11:29 WBC RBC Hgb Hct MCV MCH MCHC RDW RDW Differential Plt Count MPV Immature Gran % (Auto) Neut % (Auto) Lymph % (Auto) [place] % (Auto) Eos % (Auto) Baso % (Auto) Absolute Neuts (auto) Absolute Lymphs (auto) Total Counted PT INR APTT Specimen Type ART Sample Site R Radial pH 7.37 Bicarbonate Actual 44.3 H POC Total CO2 47 Base Excess 19 H O2 Saturation 89 L ABG pCO2 76.1 H* ABG pO2 61 L O2 Delivery Device Nasal Can Liter Flow 4.0 Blood Gas Notified Whom [facility] Blood Gas Notified Time 1127 Sodium 138 Potassium 3.8 Chloride 90 L Carbon Dioxide 41.0 H Anion Gap 7 BUN 21 H Creatinine 1.19 Estim Creat Clear Calc 57.06 Est GFR (MDRD) Af Amer 76 Est GFR (MDRD) Non-Af 63 BUN/Creatinine Ratio 17.6 Glucose 212 H Lactic Acid Calcium 9.3 Total Bilirubin AST ALT Alkaline Phosphatase Troponin I B-Natriuretic Peptide Total Protein Albumin Globulin Albumin/Globulin Ratio Urine Color Urine Clarity Urine pH Ur Specific [place] Urine Protein Urine Glucose (UA) Urine Ketones Urine Occult Blood Urine Nitrite Urine Bilirubin Urine Urobilinogen Ur Leukocyte Esterase Urine RBC Urine WBC Ur Squamous Epith Cells Urine Bacteria Urine Mucus Mycoplasma pneumon IgG Pending Mycoplasma pneumon IgM Pending POC Glucose 05/11/18 05/11/18 10:59 06:46 POC Glucose 252 H 183 H Assessment/Plan Hospitalist note: I am seeing this patient in conjunction with Rosamaria Barker. I independently seen and examined the patient. Progress note above, laboratory data and imaging studies reviewed and I agree with the above workup and treatment plan. Patient was admitted for worsening shortness of breath. He is on home oxygen at 3 L for history of COPD. Today, he mentioned that his breathing is almost the same, no significant improvement. He reported dry cough with occasional sputum. Denies fever chills. Denied abdominal pain, nausea or vomiting. He is afebrile, blood pressure and heart rate are stable, pulse ox is 94% on 4 L. - Physical Exam General: Alert, Oriented x3, Cooperative, moderately short of breath. HEENT: Atraumatic, PERRLA, EOMI. Neck: Supple, No JVD, Negative Carotid Bruits, Trachea Midline, Thyroid Normal. Lungs: Decreased breath sounds at the bases, bilateral basal crackles, rhonchi, shortness of breath, no wheezes. Cardiovascular: Regular rate, Regular Rhythm, Normal S1, Normal S2, PMI Normal. Abdomen: Bowel Sounds Present, Soft, Non Tender, Non-Distended, No Hepato-splenomegaly. Extremities: No clubbing, No cyanosis, No edema Skin: No rashes, No breakdown Neurological: Neuro grossly intact Assessment and plan: #1 acute on chronic hypoxic and hypercapnic respiratory failure: ABG revealed 0.27, PCO2 of 76 and PO2 of 61. Probably, is a chronic CO2 retainer. Chest x-ray reviewed, showed probable right middle lobe infiltrate. CT scan chest also reviewed and revealed bilateral infiltrate versus pulmonary vascular congestion. Denied any fever, no leukocytosis and lactic acid was normal. History of chronic COPD and diastolic CHF/cor pulmonale is on the differential diagnosis. He is on IV Zithromax and Rocephin for pneumonia as well as bronchodilators. Blood, urine and sputum cultures are pending. His BNP was normal. Plan: Continue IV antibiotics, bronchodilators, will do 2D echocardiogram, BiPAP if needed. #2 probable community-acquired pneumonia: He is on IV Zithromax and Rocephin as above. Pneumococcal and Legionella antigen were negative. Cultures are pending. #3 probable acute on chronic diastolic CHF: Started on IV Lasix. Plan to do 2D echocardiogram. #4 metabolic encephalopathy: Likely secondary to CO2 retention. At this time, he is alert and oriented x3. #5 other chronic medical problems: Stable, continue current medications as above. This note was generated with [employer] dictation software. It may contain incorrect words, spelling, and punctuation that were not noted in checking the note before signing. Code Visit Inpatient E&M: 15276 Subs Hosp L2
--- NOTE | 2018-05-11 13:14 | ECHOD_ITS ---
Reason For Study: Dyspnea/ SOB Procedure This was a 2D Doppler, Color Flow transthoracic echocardiogram. The study was technically difficult. Exam performed portable in patient room. Left Ventricle Normal size and thickness. The estimated ejection fraction is 65 %. Stage 1 diastolic dysfunction. No regional wall motion abnormalities noted. Right Ventricle Normal size and thickness. Normal systolic function. Atria The left atrium is moderately enlarged. The right atrium is moderately enlarged. Normal atrial septum. Mitral Valve The mitral valve is structurally normal. No prolapse or stenosis seen. Tricuspid Valve Normal tricuspid valve. Unable to estimate RV systolic pressure due to inadequate jet, pulmonary artery pressure probably normal. Aortic Valve Normal aortic valve. Trisinus/trileaflet aortic valve. Pulmonic Valve Normal pulmonic valve. Great Vessels Normal aortic root. Normal arch. Normal inferior vena cava. Inferior vena cava collapse with sniff. Pericardium/Pleural No pericardial effusion. MMode/2D Measurements & Calculations LVIDd: 5.4 cm IVSd: 1.0 cm Ao root diam: 3.2 cm LVIDs: 3.8 cm LVPWd: 1.4 cm FS: 29.9 % LAV(MOD-bp): 79.7 ml LVAd ap4: 34.9 cm2 SV(MOD-sp4): 83.4 ml LAV(MOD-bp) Indexed: 32.2 ml/m2 EDV(MOD-sp4): 127.4 ml LAV(MOD-sp2): 70.4 ml EDV(sp4-el): 122.9 ml LAV(MOD-sp4): 76.3 ml LVAs ap4: 18.0 cm2 ESV(MOD-sp4): 44.0 ml ESV(sp4-el): 41.7 ml EF(MOD-sp4): 65.5 % EF(sp4-el): 66.0 % SV(sp4-el): 81.2 ml LA A4 area: 24.6 cm2 RA A4 area: 25.7 cm2 Time Measurements MV dec time: 0.17 sec Doppler Measurements & Calculations MV E max brendan: 76.8 cm/sec Lat Peak E' Brendan: 8.4 cm/sec Med Peak E' Brendan: 6.3 cm/sec MV A max brendan: 112.8 cm/sec E/E' lat: 9.2 E/E' med: 12.1 MV E/A: 0.68 MV V2 max: 148.3 cm/sec MV P1/2t max brendan: 99.2 cm/sec Ao V2 max: 183.0 cm/sec MV max P.8 mmHg MV P1/2t: 69.5 msec Ao max P.4 mmHg MV V2 mean: 85.9 cm/sec MV dec slope: 418.1 cm/sec2 Ao V2 mean: 99.9 cm/sec MV mean P.4 mmHg MVA(P1/2t): 3.2 cm2 Ao mean P.9 mmHg MV V2 VTI: 36.4 cm Ao V2 VTI: 30.5 cm LV V1 max: 139.9 cm/sec PA V2 max: 129.0 cm/sec LV V1 max P.8 mmHg LV V1 mean P.9 mmHg LV V1 mean: 75.7 cm/sec LV V1 VTI: 29.4 cm Interpretation Summary The estimated ejection fraction is 65 %. Stage 1 diastolic dysfunction. The left atrium is moderately enlarged. The right atrium is moderately enlarged. Unable to estimate RV systolic pressure due to inadequate jet, pulmonary artery pressure probably normal. Comapred to echo report dated 08/18/2012, LV function has improved from 55% to 65%. Ordering Physician: ESTEBAN Gonzalez Performed By: Simone Triana RCS
[2018-05-11] MEDS: 0.9% NaCl Peripheral Flush Adult/Peds IV ×3 (13:45→23:00)
[2018-05-11] MEDS: Furosemide 40 MG/4 ML Vial IV ×2 (13:45→22:55)
--- NOTE | 2018-05-11 14:21 | PCM.CONS.GEN ---
Problem List (1) Bilateral pneumonia Status: Acute (2) Morbid obesity Status: Chronic (3) Dyslipidemia Status: Chronic (4) DM type 2 (diabetes mellitus, type 2) Status: Chronic (5) Chronic respiratory failure Status: Chronic (6) Chronic obstructive lung disease Status: Chronic (7) CKD (chronic kidney disease), stage III Status: Chronic Reason for Consult Date of Consultation: 05/11/18 Reason for Consultation: COPD exacerbation History of Present Illness: The patient is a 78 year old M, with past medical history listed below, who presented to [facility] on 05/10/2018 secondary to shortness of breath and change in mental status. Patient had reportedly had progressive shortness of breath over the previous week and had had episodes of reported delirium. Patient had increased his nebulizer secondary to shortness of breath. Patient reportedly had been vomiting for 2 days prior to presentation. Patient states he was treated with antibiotics for approximately 1 month. Patient did have a cough productive of green sputum and subjective fever. Patient is normally on 3 L nasal cannula, but this had been increased to 4 L nasal cannula secondary to dyspnea. On arrival in the emergency room, patient was noted to be 93% on 4 L nasal cannula. Patient was noted to have rhonchi on exam. Chest x-ray was suggestive of pneumonia, so patient was admitted to the PCU. Since being on the PCU, patient reports subjective improvement in overall condition. Patient states he feels comfortable at rest, but is still having some dyspnea on exertion. Patient is having a cough productive of green sputum. No fevers have been documented. Patient's is at the bedside and states that he is breathing much better and thinking right. Patient is currently on a Ventimask to maintain saturations. Patient reportedly is seen at the [facility] by pulmonary. Patient has been seen in the last 6 months and last pulmonary function tests were reportedly worsening. Family is unaware of any further results. Patient has never been told of an abnormal CT scan. Patient does have a long smoking history in the past, but recently quit. Patient is compliant with his 3 L nasal cannula, but does not typically check his saturations at home. Patient denies a diagnosis of YOGI in the past. Patient reportedly does snore. Review of systems otherwise negative x10 systems. Past Medical History Past Medical History (Chronic Problems): Chronic Problems Morbid obesity (Chronic) Dyslipidemia (Chronic) DM type 2 (diabetes mellitus, type 2) (Chronic) Chronic respiratory failure (Chronic) Chronic obstructive lung disease (Chronic) CKD (chronic kidney disease), stage III (Chronic) Allergies codeine Adverse Reaction (Verified 05/10/18 21:09) confused lisinopril Adverse Reaction (Verified 05/10/18 21:09) Other BETA DEAN Allergy (Uncoded 05/10/18 21:09) Hives PAIN MEDICATION Allergy (Uncoded 05/10/18 21:09) Itching Home Medications: Ambulatory Orders Medication Instructions Recorded Budesonide/Formoterol 160/4.5 2 puff INHALATION BID 09/01/13 [Symbicort 160/4.5 Mcg Inhaler (SP)] Furosemide [Lasix] 80 mg PO QODAY 09/01/13 Gabapentin [Neurontin] 800 mg PO BID 09/01/13 NIFEdipine [Procardia XL] 90 mg PO DAILY 09/01/13 Tiotropium [place] [Spiriva 18 MCG] 1 puff INHALATION DAILY 09/01/13 Albuterol Inhaler [Ventolin Hfa] 1 - 2 puff INHALATION Q6H PRN PRN 05/01/14 Bimatoprost [Lumigan Opthalmic] 1 drop EACH EYE QHS 05/01/14 Ipratropium/Albuterol Sulfate 3 ml INHALATION Q6HWA.RT 05/01/14 [Duoneb] Ascorbic Acid [Vitamin C] 1,000 mg PO DAILY@0800 07/28/15 Multivitamin [Daily Multiple 1 each PO DAILY 07/28/15 Vitamin] Aspirin [Aspirin, Baby] 81 mg PO DAILY@0800 10/28/15 Calcium Carbonate/Vitamin D3 1 each PO DAILY 10/28/15 [Oyster Shell Calcium + D Cplt] Fexofenadine HCl [Children's 180 mg PO DAILY 10/28/15 Fay Allergy] Fish Oil 1,200 mg PO BID 10/28/15 Olopatadine HCl [Patanol] 1 drop EACH EYE BID 10/28/15 Famotidine 20 mg PO QHS 05/10/18 Furosemide [Lasix] 60 mg PO QODAY 05/10/18 Guaifenesin [Mucinex] 600 mg PO BID 05/10/18 Polyethylene Glycol 3350 [Miralax] 17 gm PO DAILY 05/10/18 traMADol [Ultram (G)] 50 mg PO QHS 05/10/18 Docusate Calcium [Surfak] 240 mg PO BID 05/11/18 Dorzolamide HCl/Pf [Dorzolamide 2% 1 drop OP BID 05/11/18 Eye Drop] Surgical History: total hip arthroplasty, - - Prostate surgery Psychiatric History: No pertinent psych hx Lives: Spouse/ Significant Other Smoking Status: Former smoker - *Family History Maternal History Items: - - Patient does not know. Paternal History Items: Diabetes Review of Systems Comment: See HPI Patient Problems: Active and Suspected Problems Bilateral pneumonia (Acute) Objective: CT scan of the chest was personally reviewed. I agree with formal interpretation. This appears to be infectious with some groundglass opacities and some basilar bronchiectasis. - Physical Exam General: Alert, Oriented x3, Cooperative, - - Mild conversational dyspnea. Obese. Appears stated age. HEENT: Atraumatic, PERRLA, EOMI, Normocephalic, - - No scleral icterus or injection noted. Oral: Moist Mucosa, No Gingival or Mucosal Lesions/ Ulcerations Neck: Supple, No JVD, No Nodes, Trachea Midline Lungs: No wheeze, No rales, Diminished, Rhonchi - Improved with coughing, - - Symmetric expansion. No dullness to percussion. Cardiovascular: Regular rate, Regular Rhythm, Normal S1, Normal S2, No murmurs, No rub noted, No Gallop Abdomen: Bowel Sounds Present, Soft, Non Tender, Non-Distended, Obese Extremities: No cyanosis, Clubbing, Edema - 2+ lower extremity Skin: No rashes, No breakdown Musculoskeletal: No Tenderness to Palpation of Joints or Extremities Lymphatic: No Cervical, Supraclavicular, or Inguinal Adenopathy Neurological: Cranial nerves II-XII grossly intact, Neuro grossly intact, Motor Exam 5/5 strength throughout Psych/Mental Status: Alert and oriented to time, place, person, mood and affect Vital Signs Temp Pulse Resp BP Pulse Ox 37.1 C 64 16 156/58 H 94 05/11/18 10:01 05/11/18 11:46 05/11/18 11:46 05/11/18 10:01 05/11/18 11:46 Oxygen Flow Rate (L/min) 4 Oxygen Delivery Method Venturi Mask Weight: 129.2 kg Body Mass Index (BMI) 38.6 Intake and Output for Last 24 Hours 05/09/18 05/10/18 05/11/18 23:59 23:59 23:59 Intake Total 1882 / 1882 Output Total 250 / 250 Balance 1632 / 1632 Microbiology Past 72 Hours 05/10/18 22:50 Streptococcus pneumoniae Antigen (M - Final Urine, Clean Catch 05/10/18 22:50 Legionella Antigen - Final Urine, Clean Catch Laboratory Tests Past 24 Hrs 05/10/18 05/10/18 05/10/18 21:39 21:39 21:39 WBC 9.0 RBC 4.27 L Hgb 11.8 L Hct 39.5 L MCV 92.5 MCH 27.6 MCHC 29.9 L RDW 13.3 RDW Differential 43.8 Plt Count 243 MPV 10.2 Immature Gran % (Auto) 1.900 H Neut % (Auto) 66.3 Lymph % (Auto) 17.8 L [place] % (Auto) 11.6 H Eos % (Auto) 2.2 Baso % (Auto) 0.2 Absolute Neuts (auto) 6.0 Absolute Lymphs (auto) 1.60 Total Counted Not Reportable PT 14.0 INR 1.1 APTT 33.0 Specimen Type Sample Site pH Bicarbonate Actual POC Total CO2 Base Excess O2 Saturation ABG pCO2 ABG pO2 O2 Delivery Device Liter Flow Blood Gas Notified Whom Blood Gas Notified Time Sodium 136 Potassium 3.7 Chloride 91 L Carbon Dioxide 41.0 H Anion Gap 4 L BUN 19 H Creatinine 1.19 Estim Creat Clear Calc 57.06 Est GFR (MDRD) Af Amer 76 Est GFR (MDRD) Non-Af 63 BUN/Creatinine Ratio 16.0 Glucose 272 H Lactic Acid Calcium 9.1 Total Bilirubin 0.20 AST 9 L ALT 15 L Alkaline Phosphatase 93 Troponin I < 0.015 B-Natriuretic Peptide Total Protein 7.2 Albumin 2.8 L Globulin 4.4 H Albumin/Globulin Ratio 0.6 L Urine Color Urine Clarity Urine pH Ur Specific [place] Urine Protein Urine Glucose (UA) Urine Ketones Urine Occult Blood Urine Nitrite Urine Bilirubin Urine Urobilinogen Ur Leukocyte Esterase Urine RBC Urine WBC Ur Squamous Epith Cells Urine Bacteria Urine Mucus Mycoplasma pneumon IgG Mycoplasma pneumon IgM 05/10/18 05/10/18 05/10/18 21:39 21:39 22:50 WBC RBC Hgb Hct MCV MCH MCHC RDW RDW Differential Plt Count MPV Immature Gran % (Auto) Neut % (Auto) Lymph % (Auto) [place] % (Auto) Eos % (Auto) Baso % (Auto) Absolute Neuts (auto) Absolute Lymphs (auto) Total Counted PT INR APTT Specimen Type Sample Site pH Bicarbonate Actual POC Total CO2 Base Excess O2 Saturation ABG pCO2 ABG pO2 O2 Delivery Device Liter Flow Blood Gas Notified Whom Blood Gas Notified Time Sodium Potassium Chloride Carbon Dioxide Anion Gap BUN Creatinine Estim Creat Clear Calc Est GFR (MDRD) Af Amer Est GFR (MDRD) Non-Af BUN/Creatinine Ratio Glucose Lactic Acid 0.9 Calcium Total Bilirubin AST ALT Alkaline Phosphatase Troponin I B-Natriuretic Peptide 31.1 Total Protein Albumin Globulin Albumin/Globulin Ratio Urine Color Yellow Urine Clarity Clear Urine pH 5.0 Ur Specific [place] 1.020 Urine Protein 100 H Urine Glucose (UA) Normal Urine Ketones 5 H Urine Occult Blood Negative Urine Nitrite Negative Urine Bilirubin Negative Urine Urobilinogen Normal Ur Leukocyte Esterase 25 H Urine RBC 0 SEEN Urine WBC 0-5 SEEN Ur Squamous Epith Cells 5-10 SEEN Urine Bacteria 0 SEEN Urine Mucus 0 SEEN Mycoplasma pneumon IgG Mycoplasma pneumon IgM 05/11/18 05/11/18 05/11/18 05:48 05:48 11:29 WBC RBC Hgb Hct MCV MCH MCHC RDW RDW Differential Plt Count MPV Immature Gran % (Auto) Neut % (Auto) Lymph % (Auto) [place] % (Auto) Eos % (Auto) Baso % (Auto) Absolute Neuts (auto) Absolute Lymphs (auto) Total Counted PT INR APTT Specimen Type ART Sample Site R Radial pH 7.37 Bicarbonate Actual 44.3 H POC Total CO2 47 Base Excess 19 H O2 Saturation 89 L ABG pCO2 76.1 H* ABG pO2 61 L O2 Delivery Device Nasal Can Liter Flow 4.0 Blood Gas Notified Whom [facility] Blood Gas Notified Time 1127 Sodium 138 Potassium 3.8 Chloride 90 L Carbon Dioxide 41.0 H Anion Gap 7 BUN 21 H Creatinine 1.19 Estim Creat Clear Calc 57.06 Est GFR (MDRD) Af Amer 76 Est GFR (MDRD) Non-Af 63 BUN/Creatinine Ratio 17.6 Glucose 212 H Lactic Acid Calcium 9.3 Total Bilirubin AST ALT Alkaline Phosphatase Troponin I B-Natriuretic Peptide Total Protein Albumin Globulin Albumin/Globulin Ratio Urine Color Urine Clarity Urine pH Ur Specific [place] Urine Protein Urine Glucose (UA) Urine Ketones Urine Occult Blood Urine Nitrite Urine Bilirubin Urine Urobilinogen Ur Leukocyte Esterase Urine RBC Urine WBC Ur Squamous Epith Cells Urine Bacteria Urine Mucus Mycoplasma pneumon IgG Pending Mycoplasma pneumon IgM Pending POC Glucose 05/11/18 05/11/18 10:59 06:46 POC Glucose 252 H 183 H Clinical Impression(s) from Imaging Studies Chest X-Ray 05/10/18 22:10 IMPRESSION: Limited study with partial visualization of a right middle lobe infiltrate. Cannot exclude left lingular infiltrate. Findings are similar to the prior study. This may represent chronic atelectasis and/or infiltrate versus recurrence. Recommend consideration for follow up CT scan of the chest for clarification when appropriate. Electronically Signed: Jennifer Ott MD at 22:37 EDT Tel , Service support , Chest CT 05/11/18 00:33 IMPRESSION: Diffuse bilateral peribronchial nodular groundglass infiltration with bronchiolar wall thickening, with patchy consolidation versus atelectasis in the lingula, and with reactive mediastinal and hilar lymphadenopathy. Electronically Signed: Luis Alfredo De Leon MD at 3:45 EDT Tel , Service support , Assessment/Plan All Active Problems Bilateral pneumonia (Acute) Shortness of breath (Acute) RECOMMENDATIONS: 1. Continue antibiotics, bronchodilators 2. Transition from Pulmicort to systemic steroids 3. Wean oxygen as tolerated 4. Monitor blood sugars closely and treat as necessary 5. Obtain old records from [facility] 6. Await sputum culture IMPRESSIONS: 1. Chronic combined respiratory failure with probable pneumonia Patient is slightly up on oxygen demands. ABG shows adequate oxygenation and ventilation. CT scan shows a probable right middle lobe infiltrate with possible vascular congestion. Patient may have an element of cor pulmonale, but BNP is not very impressive. Patient has an echocardiogram currently pending for quantification and clarification of heart function. Would continue with IV antibiotics. Transition to systemic steroids, but will need to watch blood sugars closely. Patient has been treated with 2 separate rounds of antibiotics as an outpatient without improvement. Possibility of MDRO, but will await sputum culture prior to making any changes in antibiotics 2. Probable acute on chronic diastolic CHF Patient's rate is currently controlled, but initiated on Lasix therapy. This is likely appropriate. We will continue to monitor electrolytes and replete as necessary. 2D echocardiogram is already been ordered. 3. Metabolic encephalopathy Clinical suspicion for CO2 retention versus hypoxemia as the etiology. Patient appears to be improving at this time. We will continue with delirium protocol, especially overnight. Recommend avoiding benzodiazepines of possible 4. Morbid obesity/diabetes mellitus type 2/CKD stage III/dyslipidemia/advanced age Complicates care, management, recovery and prognosis. Will need to watch blood sugars closely given systemic steroids. Code Visit Inpatient E&M: 13847 Init Hosp L3
[2018-05-11 16:41] LABS: Bedside Glucose 174 mg/dL (70-110)
[2018-05-11] MEDS: Famotidine 20 MG Tablet PO (22:55)
[2018-05-11] MEDS: Ceftriaxone 1 GM/50 ML BAG IV (22:56)
[2018-05-11] MEDS: Latanoprost 0.005% 1 Bottle 1 DRP EACH EYE (22:57)
[2018-05-11] MEDS: traMADol 50 MG Tablet PO (23:00)
[2018-05-11 23:45] LABS: Bedside Glucose 191 mg/dL (70-110)
[2018-05-12] VITALS (14 sets, daily range): BP systolic 136–152; BP diastolic 61–101; PULSE 60–123; RESP 18–24; TEMP 36.5–36.8; O2SAT 92–98
[2018-05-12] MEDS: Ipratropium/Albuterol Sulfate 3 ML AMPUL.NEB INHALATION ×4 (00:45→19:35)
[2018-05-12] MEDS: Haloperidol Lactate 5 MG/ML Vial 3 MG IV (04:31)
[2018-05-12] MEDS: Furosemide 40 MG/4 ML Vial IV ×2 (05:56→17:14)
[2018-05-12 06:53] LABS: BUN 22 mg/dL (7-18); Creatinine, Serum 1.27 mg/dL (0.70-1.30); Glucose 239 mg/dL (74-106)
[2018-05-12 06:54] LABS: Anion Gap 9 (5-15); BUN/Creat Ratio 17.3 RATIO (10-20); Calcium,Total 9.7 mg/dL (8.5-10.1); Chloride 88 mmol/L (98-107); EST Glomerular Filtration Rate 58 mL/min (>60); Est Glom Filt Rate - Afr Amer 71 mL/min (>60); Estimated Creatinine Clearance 53.46 ml/min; Potassium 3.9 mmol/L (3.5-5.1); Sodium Level 137 mmol/L (136-145)
[2018-05-12 06:55] LABS: Bedside Glucose 247 mg/dL (70-110)
--- NOTE | 2018-05-12 07:57 | PN_ITS ---
Patient Problems: Active and Suspected Problems Bilateral pneumonia (Acute) Subjective: Patient with significant agitation overnight. Patient was found to be desaturating into the 70s and 80s. Patient was placed on increased Ventimask with good response. Patient was sleeping during my evaluation, but did discuss with patient's . - Physical Exam General: - - Resting comfortably. Morbidly obese. Some apneic-like episodes noted with sleeping. HEENT: Atraumatic, Normocephalic, - - No scleral icterus or injection noted. Oral: No Gingival or Mucosal Lesions/ Ulcerations, Dry Mucosa Neck: Supple, No Nodes, Trachea Midline, JVD, Right Lungs: No rhonchi, No rales, Diminished, Wheezes, - - Symmetric expansion. Cardiovascular: Regular rate, Regular Rhythm, Normal S1, Normal S2, No murmurs, No rub noted, No Gallop Abdomen: Bowel Sounds Present, Soft, Non Tender, Non-Distended, Obese Extremities: No cyanosis, Clubbing, Edema Skin: - - No significant change compared to previous Musculoskeletal: No Tenderness to Palpation of Joints or Extremities, No Muscle Wasting Lymphatic: No Cervical, Supraclavicular, or Inguinal Adenopathy Neurological: Cranial nerves II-XII grossly intact, Neuro grossly intact, Motor Exam 5/5 strength throughout Psych/Mental Status: Flat Affect, - - Resting comfortably Vital Signs Temp Pulse Resp BP Pulse Ox 36.8 C 70 20 H 138/101 H 92 05/12/18 04:22 05/12/18 07:16 05/12/18 07:16 05/12/18 04:22 05/12/18 07:16 Oxygen Flow Rate (L/min) 10 Oxygen Delivery Method Venturi Mask Weight: 128.5 kg Body Mass Index (BMI) 38.6 Intake and Output for Last 24 Hours 05/10/18 05/11/18 05/12/18 23:59 23:59 23:59 Intake Total 1882 / 1882 552 / 552 Output Total 1150 / 1150 600 / 600 Balance 732 / 732 -48 / -48 Microbiology Past 72 Hours 05/11/18 10:55 Gram Stain - Final Sputum, Expectorated/Coughed 05/10/18 22:50 Streptococcus pneumoniae Antigen (M - Final Urine, Clean Catch 05/10/18 22:50 Legionella Antigen - Final Urine, Clean Catch Laboratory Tests Past 24 Hrs 05/11/18 05/12/18 11:29 06:00 Specimen Type ART Sample Site R Radial pH 7.37 Bicarbonate Actual 44.3 H POC Total CO2 47 Base Excess 19 H O2 Saturation 89 L ABG pCO2 76.1 H* ABG pO2 61 L O2 Delivery Device Nasal Can Liter Flow 4.0 Blood Gas Notified Whom HOSP Blood Gas Notified Time 1127 Sodium 137 Potassium 3.9 Chloride 88 L Carbon Dioxide 40.0 H Anion Gap 9 BUN 22 H Creatinine 1.27 Estim Creat Clear Calc 53.46 Est GFR (MDRD) Af Amer 71 Est GFR (MDRD) Non-Af 58 L BUN/Creatinine Ratio 17.3 Glucose 239 H Calcium 9.7 POC Glucose 05/12/18 05/11/18 05/11/18 06:51 22:48 16:31 POC Glucose 247 H 191 H 174 H 05/11/18 10:59 POC Glucose 252 H Medical Necessity - Tobacco Use Smoking Status: Former smoker Assessment/Plan All Active Problems Bilateral pneumonia (Acute) Shortness of breath (Acute) RECOMMENDATIONS: 1. Continue antibiotics, bronchodilators 2. Continue systemic steroids for at least another 48 hours 3. Wean oxygen as tolerated 4. Monitor blood sugars closely and treat as necessary 5. Obtain old records from [facility] 6. Await sputum culture and echocardiogram IMPRESSIONS: 1. Chronic combined respiratory failure with probable pneumonia Patient is slightly up on oxygen demands. Previous ABG showed adequate oxygenation and ventilation. CT scan shows a probable right middle lobe infiltrate with possible vascular congestion. Patient may have an element of cor pulmonale, but BNP is not very impressive. Patient has an echocardiogram currently pending for quantification and clarification of heart function. Patient with delirium overnight. This may be exacerbated by steroid therapy, but patient still has significant hypoxemia and wheezing on exam. Would continue with IV steroids and antibiotics. Await sputum culture. 2. Probable acute on chronic diastolic CHF Patient's rate is currently controlled, but initiated on Lasix therapy. This is likely appropriate. We will continue to monitor electrolytes and replete as necessary. 2D echocardiogram is already been ordered. 3. Metabolic encephalopathy Clinical suspicion for CO2 retention versus hypoxemia as the etiology. Patient appears to be improving at this time. We will continue with delirium protocol, especially overnight. Recommend avoiding benzodiazepines of possible 4. Morbid obesity/diabetes mellitus type 2/CKD stage III/dyslipidemia/advanced age Complicates care, management, recovery and prognosis. Will need to watch blood sugars closely given systemic steroids. Code Visit Inpatient E&M: 86304 Subs Hosp L3
[2018-05-12] MEDS: Multivitamins,Therapeutic Tablet 1 TABLET PO (08:22)
[2018-05-12] MEDS: Insulin Lispro 100 UNIT/ML INSULN.PEN SQ ×4 (08:22→23:17)
[2018-05-12] MEDS: Aspirin 81 MG TAB.CHEW PO (08:22)
[2018-05-12] MEDS: Heparin Injection (Vial) 5,000 UNIT/ML VIAL 5000 UNIT SC ×2 (08:23→23:18)
[2018-05-12] MEDS: Loratadine 10 MG Tablet PO (08:23)
[2018-05-12] MEDS: Calcium Carb/Vitamin D 1 TABLET Tablet PO (08:23)
[2018-05-12] MEDS: Gabapentin 800 MG Tablet PO ×2 (08:23→23:19)
[2018-05-12] MEDS: NIFEdipine 90 MG Tablet PO (08:23)
[2018-05-12] MEDS: Ascorbic Acid 500 MG Tablet 1000 MG PO (08:23)
[2018-05-12] MEDS: guaiFENesin 1,200 MG Tablet 1200 MG PO ×2 (08:23→23:19)
[2018-05-12] MEDS: Dorzolamide 2% 10ml Bottle 1 DRP EACH EYE ×2 (08:24→23:21)
[2018-05-12] MEDS: Senna/Docusate Sodium 1 Tablet 2 TABLET PO ×2 (08:24→23:20)
[2018-05-12] MEDS: Polyethylene Glycol 3350 17 GM PACKET PO (08:30)
--- NOTE | 2018-05-12 10:20 | NURSING ---
Asked patient about switching from venti mask to nasal cannula. Pt states that he does not want the N/C because it irritates his nose. Encouraged humidification, but patient states it doesn't help. He stated that at home he wears a mask, so we does not want the N/C.
[2018-05-12 11:26] LABS: Bedside Glucose 329 mg/dL (70-110)
[2018-05-12] MEDS: 0.9% NaCl Peripheral Flush Adult/Peds IV ×2 (13:12→17:14)
--- NOTE | 2018-05-12 14:00 | PCM.PROGNOTE ---
<Rosamaria Barker - Last Filed: 05/12/18 14:10> Patient Problems: Active and Suspected Problems Bilateral pneumonia (Acute) Subjective: Patient seen and examined. Drowsy during assessment, no signs of distress. Patient reported to receive Haldol overnight due to agitation. Breathing appears stable. - Physical Exam General: Alert, Oriented x3, Cooperative, No apparent distress HEENT: Atraumatic, PERRLA, EOMI, Normocephalic Neck: Supple, No JVD, Negative Carotid Bruits Lungs: Diminished, Wheezes Cardiovascular: Regular rate, Regular Rhythm, Normal S1, Normal S2, No murmurs Abdomen: Bowel Sounds Present, Soft, Non Tender, Non-Distended, Obese Extremities: No clubbing, No cyanosis, Edema - Bilateral lower extremity Skin: No rashes, No breakdown Musculoskeletal: No Tenderness to Palpation of Joints or Extremities Neurological: Cranial nerves II-XII grossly intact, Neuro grossly intact Psych/Mental Status: Normal Affect, Appropriate Vital Signs Temp Pulse Resp BP Pulse Ox 97.9 F 68 20 H 136/61 H 96 05/12/18 10:20 05/12/18 10:57 05/12/18 10:20 05/12/18 10:20 05/12/18 10:20 Oxygen Flow Rate (L/min) 10 Oxygen Delivery Method Venturi Mask Weight: 283 lb 4.704 oz Body Mass Index (BMI) 38.6 Intake and Output for Last 24 Hours 05/10/18 05/11/18 05/12/18 23:59 23:59 23:59 Intake Total 1882 / 1882 852 / 852 Output Total 1150 / 1150 1050 / 1050 Balance 732 / 732 -198 / -198 Microbiology Past 72 Hours 05/11/18 10:55 Gram Stain - Final Sputum, Expectorated/Coughed Respiratory Culture - Preliminary Appears to be normal respiratory mare. Further studies to follow. 05/10/18 22:50 Streptococcus pneumoniae Antigen (M - Final Urine, Clean Catch 05/10/18 22:50 Legionella Antigen - Final Urine, Clean Catch Laboratory Tests Past 24 Hrs 05/12/18 06:00 Sodium 137 Potassium 3.9 Chloride 88 L Carbon Dioxide 40.0 H Anion Gap 9 BUN 22 H Creatinine 1.27 Estim Creat Clear Calc 53.46 Est GFR (MDRD) Af Amer 71 Est GFR (MDRD) Non-Af 58 L BUN/Creatinine Ratio 17.3 Glucose 239 H Calcium 9.7 POC Glucose 05/12/18 05/12/18 05/11/18 11:20 06:51 22:48 POC Glucose 329 H 247 H 191 H 05/11/18 16:31 POC Glucose 174 H Medical Necessity - Tobacco Use Smoking Status: Former smoker Assessment/Plan All Active Problems Bilateral pneumonia (Acute) Shortness of breath (Acute) 1. Acute on chronic hypoxic and hypercapnic respiratory failure suspected secondary to right middle lobe and left lingular pneumonia, failed outpatient treatment and underlying Chronic COPD-CT of chest on admission showed bilateral peribronchial nodular groundglass infiltration with bronchiolar wall thickening, patchy consolidation versus atelectasis in the lingula with reactive mediastinal and hilar lymphadenopathy. Chest x-ray similar to prior studies, chronic atelectasis versus infiltrate. Patient has followed with Dr. Galicia in the past. Noncompliance with follow-up and treatment recommendations. Patient states he was told to wear BiPAP in the past and refuses. ABG shows CO2 76, O2 saturation 89%. Pulmonary medicine consulted. Albuterol and DuoNeb aerosols. Encourage BiPAP. Continue IV Rocephin and azithromycin empirically. Continue IV steroids. Blood cultures pending. Sputum culture shows normal respiratory mare. Urine for strep and Legionella negative. IS. Continue mucinex. Possible component of CHF given no improvement with outpatient doxycycline/amoxicillin. BNP within normal limits on admission. Prior echocardiogram in 2012 with EF 55%. Repeat echo pending. Zane wraps bilateral lower extremities. IV Lasix 40 mg every 8. Continue supplement oxygen to maintain O2 at or above 90%. 2. Suspected acute on chronic diastolic CHF-continue IV Lasix. Repeat echocardiogram pending as noted above. 3. Acute metabolic encephalopathy-secondary to #1, elevated CO2. Encourage BiPAP. Patient with increased confusion overnight requiring Haldol. 4. Nonsustained V. tach, asymptomatic-no further episodes. Monitor telemetry. Troponin negative. 5. Type 2 diabetes [id number] before meals at bedtime with sliding scale insulin, continue Lantus regimen. 6. Hypertension-stable, continue home Procardia regimen. 7. Hyperlipidemia-continue statin. 8. Chronic kidney disease stage III-stable, trend BMP. 9. Obesity-encourage diet lifestyle modifications. Nutrition consult. DVT prophylaxis-heparin subcu. This patient was seen by ESTEBAN Gonzalez under the supervision of Dr. Baxter. <TruvalerianoKenneth E - Last Filed: 05/12/18 14:34> - Physical Exam Vital Signs Temp Pulse Resp BP Pulse Ox 97.9 F 80 18 136/61 H 96 05/12/18 10:20 05/12/18 14:22 05/12/18 14:22 05/12/18 10:20 05/12/18 10:20 Oxygen Flow Rate (L/min) 10 Oxygen Delivery Method Venturi Mask Weight: 283 lb 4.704 oz Body Mass Index (BMI) 38.6 Intake and Output for Last 24 Hours 05/10/18 05/11/18 05/12/18 23:59 23:59 23:59 Intake Total 1882 / 1882 852 / 852 Output Total 1150 / 1150 1050 / 1050 Balance 732 / 732 -198 / -198 Microbiology Past 72 Hours 05/11/18 10:55 Gram Stain - Final Sputum, Expectorated/Coughed Respiratory Culture - Preliminary Appears to be normal respiratory mare. Further studies to follow. 05/10/18 22:50 Streptococcus pneumoniae Antigen (M - Final Urine, Clean Catch 05/10/18 22:50 Legionella Antigen - Final Urine, Clean Catch Laboratory Tests Past 24 Hrs 05/12/18 06:00 Sodium 137 Potassium 3.9 Chloride 88 L Carbon Dioxide 40.0 H Anion Gap 9 BUN 22 H Creatinine 1.27 Estim Creat Clear Calc 53.46 Est GFR (MDRD) Af Amer 71 Est GFR (MDRD) Non-Af 58 L BUN/Creatinine Ratio 17.3 Glucose 239 H Calcium 9.7 POC Glucose 05/12/18 05/12/18 05/11/18 11:20 06:51 22:48 POC Glucose 329 H 247 H 191 H 05/11/18 16:31 POC Glucose 174 H Assessment/Plan Hospitalist note: I am seeing this patient in conjunction with Rosamaria Barker. I independently seen and examined the patient. Progress note above and imaging studies reviewed and I agree with the above workup and treatment plan. Today, patient reported some improvement of his symptoms, feeling better. Overnight, he was agitated and received Haldol. He has been afebrile, blood pressure stable, pulse ox is maintained on Ventimask 40%. - Physical Exam General: Alert, Oriented x3, Cooperative, moderately short of breath. HEENT: Atraumatic, PERRLA, EOMI. Neck: Supple, No JVD, Negative Carotid Bruits, Trachea Midline, Thyroid Normal. Lungs: Decreased breath sounds at the bases, occasional wheezes, rhonchi, minimally short of breath.. Cardiovascular: Regular rate, Regular Rhythm, Normal S1, Normal S2, PMI Normal. Abdomen: Bowel Sounds Present, Soft, Non Tender, Non-Distended, No Hepato-splenomegaly. Extremities: No clubbing, No cyanosis, No edema Skin: No rashes, No breakdown Neurological: Neuro grossly intact Assessment and plan: #1 acute on chronic hypoxic and hypercapnic respiratory failure: He is on IV steroids, bronchodilators, antibiotics and IV Lasix for diuresis. CO2 retainer. 2D echocardiogram is pending. His symptoms are improving, he is on Ventimask at 40%. Plan to continue same treatment. #2 probable community-acquired pneumonia: He is on IV Zithromax and Rocephin as above. Pneumococcal and Legionella antigen were negative. Blood and urine cultures are pending. Sputum culture revealed normal respiratory mare, final is pending. #3 probable acute on chronic diastolic CHF: He is on IV Lasix. Awaiting 2D echocardiogram. #4 metabolic encephalopathy: Likely secondary to CO2 retention. At this time, he is alert and oriented x3. #5 other chronic medical problems: Stable, continue current medications as above. This note was generated with [employer] software. It may contain incorrect words, spelling, and punctuation that were not noted in checking the note before signing. Code Visit Inpatient E&M: 81028 Subs Hosp L2
--- NOTE | 2018-05-12 14:10 | PN_ITS ---
<Rosamaria Barker - Last Filed: 05/12/18 14:10> Patient Problems: Active and Suspected Problems Bilateral pneumonia (Acute) Subjective: Patient seen and examined. Drowsy during assessment, no signs of distress. Patient reported to receive Haldol overnight due to agitation. Breathing appears stable. - Physical Exam General: Alert, Oriented x3, Cooperative, No apparent distress HEENT: Atraumatic, PERRLA, EOMI, Normocephalic Neck: Supple, No JVD, Negative Carotid Bruits Lungs: Diminished, Wheezes Cardiovascular: Regular rate, Regular Rhythm, Normal S1, Normal S2, No murmurs Abdomen: Bowel Sounds Present, Soft, Non Tender, Non-Distended, Obese Extremities: No clubbing, No cyanosis, Edema - Bilateral lower extremity Skin: No rashes, No breakdown Musculoskeletal: No Tenderness to Palpation of Joints or Extremities Neurological: Cranial nerves II-XII grossly intact, Neuro grossly intact Psych/Mental Status: Normal Affect, Appropriate Vital Signs Temp Pulse Resp BP Pulse Ox 97.9 F 68 20 H 136/61 H 96 05/12/18 10:20 05/12/18 10:57 05/12/18 10:20 05/12/18 10:20 05/12/18 10:20 Oxygen Flow Rate (L/min) 10 Oxygen Delivery Method Venturi Mask Weight: 283 lb 4.704 oz Body Mass Index (BMI) 38.6 Intake and Output for Last 24 Hours 05/10/18 05/11/18 05/12/18 23:59 23:59 23:59 Intake Total 1882 / 1882 852 / 852 Output Total 1150 / 1150 1050 / 1050 Balance 732 / 732 -198 / -198 Microbiology Past 72 Hours 05/11/18 10:55 Gram Stain - Final Sputum, Expectorated/Coughed Respiratory Culture - Preliminary Appears to be normal respiratory mare. Further studies to follow. 05/10/18 22:50 Streptococcus pneumoniae Antigen (M - Final Urine, Clean Catch 05/10/18 22:50 Legionella Antigen - Final Urine, Clean Catch Laboratory Tests Past 24 Hrs 05/12/18 06:00 Sodium 137 Potassium 3.9 Chloride 88 L Carbon Dioxide 40.0 H Anion Gap 9 BUN 22 H Creatinine 1.27 Estim Creat Clear Calc 53.46 Est GFR (MDRD) Af Amer 71 Est GFR (MDRD) Non-Af 58 L BUN/Creatinine Ratio 17.3 Glucose 239 H Calcium 9.7 POC Glucose 05/12/18 05/12/18 05/11/18 11:20 06:51 22:48 POC Glucose 329 H 247 H 191 H 05/11/18 16:31 POC Glucose 174 H Medical Necessity - Tobacco Use Smoking Status: Former smoker Assessment/Plan All Active Problems Bilateral pneumonia (Acute) Shortness of breath (Acute) 1. Acute on chronic hypoxic and hypercapnic respiratory failure suspected secondary to right middle lobe and left lingular pneumonia, failed outpatient treatment and underlying Chronic COPD-CT of chest on admission showed bilateral peribronchial nodular groundglass infiltration with bronchiolar wall thickening, patchy consolidation versus atelectasis in the lingula with reactive mediastinal and hilar lymphadenopathy. Chest x-ray similar to prior studies, chronic atelectasis versus infiltrate. Patient has followed with Dr. Galicia in the past. Noncompliance with follow-up and treatment recommendations. Patient states he was told to wear BiPAP in the past and refuses. ABG shows CO2 76, O2 saturation 89%. Pulmonary medicine consulted. Albuterol and DuoNeb aerosols. Encourage BiPAP. Continue IV Rocephin and azithromycin empirically. Continue IV steroids. Blood cultures pending. Sputum culture shows normal respiratory mare. Urine for strep and Legionella negative. IS. Continue mucinex. Possible component of CHF given no improvement with outpatient doxycycline/amoxicillin. BNP within normal limits on admission. Prior echocardiogram in 2012 with EF 55%. Repeat echo pending. Zane wraps bilateral lower extremities. IV Lasix 40 mg every 8. Continue supplement oxygen to maintain O2 at or above 90%. 2. Suspected acute on chronic diastolic CHF-continue IV Lasix. Repeat echocardiogram pending as noted above. 3. Acute metabolic encephalopathy-secondary to #1, elevated CO2. Encourage BiPAP. Patient with increased confusion overnight requiring Haldol. 4. Nonsustained V. tach, asymptomatic-no further episodes. Monitor telemetry. Troponin negative. 5. Type 2 diabetes [id number] before meals at bedtime with sliding scale insulin, continue Lantus regimen. 6. Hypertension-stable, continue home Procardia regimen. 7. Hyperlipidemia-continue statin. 8. Chronic kidney disease stage III-stable, trend BMP. 9. Obesity-encourage diet lifestyle modifications. Nutrition consult. DVT prophylaxis-heparin subcu. This patient was seen by ESTEBAN Gonzalez under the supervision of Dr. Baxter. <TruvalerianoKenneth E - Last Filed: 05/12/18 14:34> - Physical Exam Vital Signs Temp Pulse Resp BP Pulse Ox 97.9 F 80 18 136/61 H 96 05/12/18 10:20 05/12/18 14:22 05/12/18 14:22 05/12/18 10:20 05/12/18 10:20 Oxygen Flow Rate (L/min) 10 Oxygen Delivery Method Venturi Mask Weight: 283 lb 4.704 oz Body Mass Index (BMI) 38.6 Intake and Output for Last 24 Hours 05/10/18 05/11/18 05/12/18 23:59 23:59 23:59 Intake Total 1882 / 1882 852 / 852 Output Total 1150 / 1150 1050 / 1050 Balance 732 / 732 -198 / -198 Microbiology Past 72 Hours 05/11/18 10:55 Gram Stain - Final Sputum, Expectorated/Coughed Respiratory Culture - Preliminary Appears to be normal respiratory mare. Further studies to follow. 05/10/18 22:50 Streptococcus pneumoniae Antigen (M - Final Urine, Clean Catch 05/10/18 22:50 Legionella Antigen - Final Urine, Clean Catch Laboratory Tests Past 24 Hrs 05/12/18 06:00 Sodium 137 Potassium 3.9 Chloride 88 L Carbon Dioxide 40.0 H Anion Gap 9 BUN 22 H Creatinine 1.27 Estim Creat Clear Calc 53.46 Est GFR (MDRD) Af Amer 71 Est GFR (MDRD) Non-Af 58 L BUN/Creatinine Ratio 17.3 Glucose 239 H Calcium 9.7 POC Glucose 05/12/18 05/12/18 05/11/18 11:20 06:51 22:48 POC Glucose 329 H 247 H 191 H 05/11/18 16:31 POC Glucose 174 H Assessment/Plan Hospitalist note: I am seeing this patient in conjunction with Rosamaria Barker. I independently seen and examined the patient. Progress note above and imaging studies reviewed and I agree with the above workup and treatment plan. Today, patient reported some improvement of his symptoms, feeling better. Overnight, he was agitated and received Haldol. He has been afebrile, blood pressure stable, pulse ox is maintained on Ventimask 40%. - Physical Exam General: Alert, Oriented x3, Cooperative, moderately short of breath. HEENT: Atraumatic, PERRLA, EOMI. Neck: Supple, No JVD, Negative Carotid Bruits, Trachea Midline, Thyroid Normal. Lungs: Decreased breath sounds at the bases, occasional wheezes, rhonchi, minimally short of breath.. Cardiovascular: Regular rate, Regular Rhythm, Normal S1, Normal S2, PMI Normal. Abdomen: Bowel Sounds Present, Soft, Non Tender, Non-Distended, No Hepato- splenomegaly. Extremities: No clubbing, No cyanosis, No edema Skin: No rashes, No breakdown Neurological: Neuro grossly intact Assessment and plan: #1 acute on chronic hypoxic and hypercapnic respiratory failure: He is on IV steroids, bronchodilators, antibiotics and IV Lasix for diuresis. CO2 retainer. 2D echocardiogram is pending. His symptoms are improving, he is on Ventimask at 40%. Plan to continue same treatment. #2 probable community-acquired pneumonia: He is on IV Zithromax and Rocephin as above. Pneumococcal and Legionella antigen were negative. Blood and urine cultures are pending. Sputum culture revealed normal respiratory mare, final is pending. #3 probable acute on chronic diastolic CHF: He is on IV Lasix. Awaiting 2D echo cardiogram. #4 metabolic encephalopathy: Likely secondary to CO2 retention. At this time, he is alert and oriented x3. #5 other chronic medical problems: Stable, continue current medications as abo ve. This note was generated with [employer] dictation software. It may contain incorrect words, spelling, and punctuation that were not noted in checking the note before signing. Code Visit Inpatient E&M: 20004 Subs Hosp L2
[2018-05-12 17:10] LABS: Bedside Glucose 330 mg/dL (70-110)
--- NOTE | 2018-05-12 17:13 | CPS ---
Patient's family brought in own OxyMask. This mask can be run on anywhere from 1L-15L. Patient currently wears 3-4L at home on this mask. Rosamaria ECHOLS
[2018-05-12] MEDS: Ceftriaxone 1 GM/50 ML BAG IV (23:19)
[2018-05-12] MEDS: traMADol 50 MG Tablet PO (23:20)
[2018-05-12] MEDS: Famotidine 20 MG Tablet PO (23:20)
[2018-05-12] MEDS: Latanoprost 0.005% 1 Bottle 1 DRP EACH EYE (23:21)
[2018-05-13] VITALS (10 sets, daily range): BP systolic 149–181; BP diastolic 69–91; PULSE 57–83; RESP 18–22; TEMP 36.4–36.6; O2SAT 88–95
[2018-05-13] MEDS: 0.9% NaCl Peripheral Flush Adult/Peds IV ×2 (00:13→09:52)
[2018-05-13 00:41] LABS: Bedside Glucose 284 mg/dL (70-110)
[2018-05-13 03:05] LABS: Bedside Glucose 142 mg/dL (70-110)
[2018-05-13] MEDS: amLODIPine 5 MG Tablet PO (06:48)
[2018-05-13 06:52] LABS: Hematocrit 40.7 % (40-54); Hemoglobin 12.5 g/dl (13.0-16.5); Mean Corp Hgb Conc 30.7 g/gl (32-36); Mean Corpuscular Volume 91.1 fL (80-94); Mean Platelet Vol. 10.4 fl (6.2-12.0); Platelet Count 274 K/mm3 (150-450); RBC Distribution Width SD 42.5 fl (35.1-43.9); Red Blood Count 4.47 M/mm3 (4.6-6.2); White Blood Count 7.9 K/mm3 (4.4-11.0)
[2018-05-13 07:00] LABS: Bedside Glucose 196 mg/dL (70-110)
[2018-05-13 07:08] LABS: Anion Gap 7 (5-15); BUN 31 mg/dL (7-18); BUN/Creat Ratio 24.4 RATIO (10-20); Calcium,Total 9.5 mg/dL (8.5-10.1); Chloride 89 mmol/L (98-107); Creatinine, Serum 1.27 mg/dL (0.70-1.30); EST Glomerular Filtration Rate 58 mL/min (>60); Est Glom Filt Rate - Afr Amer 71 mL/min (>60); Estimated Creatinine Clearance 53.46 ml/min; Glucose 177 mg/dL (74-106); Potassium 4.1 mmol/L (3.5-5.1); Sodium Level 138 mmol/L (136-145)
[2018-05-13 07:11] LABS: Scan Indicated on CBC? Y/N NO
[2018-05-13] MEDS: Ipratropium/Albuterol Sulfate 3 ML AMPUL.NEB INHALATION (07:25)
[2018-05-13] MEDS: Dorzolamide 2% 10ml Bottle 1 DRP EACH EYE (09:51)
[2018-05-13] MEDS: Heparin Injection (Vial) 5,000 UNIT/ML VIAL 5000 UNIT SC (09:52)
[2018-05-13] MEDS: Multivitamins,Therapeutic Tablet 1 TABLET PO (09:53)
[2018-05-13] MEDS: Ascorbic Acid 500 MG Tablet 1000 MG PO (09:53)
[2018-05-13] MEDS: NIFEdipine 90 MG Tablet PO (09:53)
[2018-05-13] MEDS: Calcium Carb/Vitamin D 1 TABLET Tablet PO (09:53)
[2018-05-13] MEDS: Insulin Lispro 100 UNIT/ML INSULN.PEN SQ ×2 (09:53→11:11)
[2018-05-13] MEDS: Senna/Docusate Sodium 1 Tablet 2 TABLET PO (09:53)
--- NOTE | 2018-05-13 09:53 | PN_ITS ---
Patient Problems: Active and Suspected Problems Bilateral pneumonia (Acute) Subjective: Patient reports significant improvement in dyspnea compared to yesterday. No confusion was reported overnight by his . Patient has been able to be weaned back to his baseline 3 L nasal cannula by facemask, which is what he typically uses at home. Patient continues to have a periodic cough. - Physical Exam General: Alert, Oriented x3, Cooperative, No apparent distress, - - Obese. Speaking in full sentences. HEENT: Atraumatic, PERRLA, EOMI, Normocephalic, - - No scleral icterus or injection noted. Oral: Moist Mucosa, No Gingival or Mucosal Lesions/ Ulcerations Neck: Supple, No JVD, No Nodes, Trachea Midline Lungs: No rhonchi, No rales, Diminished, Wheezes - Sporadic, - - Symmetric expansion. No dullness to percussion. Cardiovascular: Regular rate, Regular Rhythm, Normal S1, Normal S2, No murmurs, No rub noted, No Gallop Abdomen: Bowel Sounds Present, Soft, Non Tender, Non-Distended, Obese Extremities: No cyanosis, Clubbing, Edema Skin: - - No significant change compared to previous Musculoskeletal: No Tenderness to Palpation of Joints or Extremities, No Muscle Wasting Lymphatic: No Cervical, Supraclavicular, or Inguinal Adenopathy Neurological: Cranial nerves II-XII grossly intact, Neuro grossly intact, Motor Exam 5/5 strength throughout Psych/Mental Status: Alert and oriented to time, place, person, mood and affect Vital Signs Temp Pulse Resp BP Pulse Ox 36.4 C L 79 18 181/87 H 95 05/13/18 09:45 05/13/18 09:45 05/13/18 09:45 05/13/18 09:45 05/13/18 09:45 Oxygen Flow Rate (L/min) [ 3 AMBULATION with Oxygen] Oxygen Flow Rate (L/min) 3 Oxygen Delivery Method Simple Mask Weight: 127.2 kg Body Mass Index (BMI) 38.6 Intake and Output for Last 24 Hours 05/11/18 05/12/18 05/13/18 23:59 23:59 23:59 Intake Total 1882 / 1882 1092 / 1092 421 / 421 Output Total 1150 / 1150 1050 / 1050 600 / 600 Balance 732 / 732 42 / 42 -179 / -179 Microbiology Past 72 Hours 10/30/18 10:55 Gram Stain - Final Sputum, Expectorated/Coughed Respiratory Culture - Preliminary Appears to be normal respiratory mare. Further studies to follow. 05/10/18 22:50 Urine Culture - Final Urine, Clean Catch Mixed Gram Positive Organisms 05/10/18 22:50 Streptococcus pneumoniae Antigen (M - Final Urine, Clean Catch 05/10/18 22:50 Legionella Antigen - Final Urine, Clean Catch Laboratory Tests Past 24 Hrs 05/13/18 05/13/18 06:25 06:25 WBC 7.9 RBC 4.47 L Hgb 12.5 L Hct 40.7 MCV 91.1 MCH 28.0 MCHC 30.7 L RDW 13.0 RDW Differential 42.5 Plt Count 274 MPV 10.4 Sodium 138 Potassium 4.1 Chloride 89 L Carbon Dioxide 42.0 H Anion Gap 7 BUN 31 H Creatinine 1.27 Estim Creat Clear Calc 53.46 Est GFR (MDRD) Af Amer 71 Est GFR (MDRD) Non-Af 58 L BUN/Creatinine Ratio 24.4 H Glucose 177 H Calcium 9.5 POC Glucose 05/13/18 05/13/18 05/12/18 06:46 02:58 23:16 POC Glucose 196 H 142 H 284 H 05/12/18 05/12/18 17:04 11:20 POC Glucose 330 H 329 H Medical Necessity - Tobacco Use Smoking Status: Former smoker Assessment/Plan All Active Problems Bilateral pneumonia (Acute) Shortness of breath (Acute) RECOMMENDATIONS: 1. Likely okay to transition to p.o. antibiotics to complete 7-day course 2. Transition to prednisone therapy. Wean over 12-14 days 3. Wean oxygen as tolerated 4. Monitor blood sugars closely and treat as necessary 5. Obtain old records from [facility] 6. Walking oximetry prior to discharge 7. Likely okay to resume baseline diuretic and inhaler therapy on discharge 8. Follow-up with nurse practitioner in 2 weeks in our office IMPRESSIONS: 1. Chronic combined respiratory failure with probable pneumonia Patient is significantly improved on oxygen demands. Patient is responded very well to IV steroids. Will transition to p.o. steroids. Patient should complete a 7-day course of antibiotics. Steroids can be weaned over the next 12-14 days. Patient likely is okay to be discharged from a pulmonary perspective with a 2-week follow-up with nurse practitioner in our office. Patient can resume baseline diuretic and inhaler therapy upon discharge from my perspective. 2. Probable acute on chronic diastolic CHF Patient's rate is currently controlled, but initiated on Lasix therapy. This is likely appropriate. We will continue to monitor electrolytes and replete as necessary. 2D echocardiogram is already been ordered. 3. Metabolic encephalopathy Clinical suspicion for CO2 retention versus hypoxemia as the etiology. Patient appears to be improving at this time. We will continue with delirium protocol, especially overnight. Recommend avoiding benzodiazepines of possible 4. Morbid obesity/diabetes mellitus type 2/CKD stage III/dyslipidemia/advanced age Complicates care, management, recovery and prognosis. Will need to watch blood sugars closely given systemic steroids. Code Visit Inpatient E&M: 59705 Subs Hosp L2
[2018-05-13] MEDS: guaiFENesin 1,200 MG Tablet 1200 MG PO (09:54)
[2018-05-13] MEDS: Aspirin 81 MG TAB.CHEW PO (09:54)
[2018-05-13] MEDS: Loratadine 10 MG Tablet PO (09:54)
[2018-05-13] MEDS: Furosemide 40 MG/4 ML Vial IV (09:54)
[2018-05-13] MEDS: Gabapentin 800 MG Tablet PO (09:54)
[2018-05-13] MEDS: Polyethylene Glycol 3350 17 GM PACKET PO (09:59)
--- NOTE | 2018-05-13 10:47 | CASEMGMT ---
Call to [facility] and they do not do skilled HHC. Pt states that [facility] was setting up HHC for pt prior to admission but pt/ do not have contact info for [facility] and they think that he may be from insurance but they are not sure. does mention [facility] as who [facility] was setting up with. Call to Alexa at [facility] and she states that they do have an order to start care for pt but only for PT at this time. Advised Alexa that pt will need RN and OT as well and new order faxed along with facesheet at this time, voices understanding. This RN CM will fax discharge instructions/summary to [facility] once obtained. Pt/ updated at this time, voice understanding. SStjacquie RN CM
[2018-05-13] MEDS: predniSONE 20 MG Tablet 40 MG PO (11:11)
[2018-05-13 11:20] LABS: Bedside Glucose 382 mg/dL (70-110)
--- NOTE | 2018-05-13 11:38 | DCINST_ITS ---
- Discharge Diagnoses Current Active Problems: Current Active and Chronic Problems Bilateral pneumonia (Acute) You will use the following diet at home:: Calorie/Carbohydrate Controlled (specify 1200, 1400, etc) - 1800 alise / day, Cardiac Your food should be the consistency of: Regular Your liquids should be the consistency of: Regular/Thin Discharge Activity: Return to Normal Activity Allergies/Adverse Reactions: Allergies codeine Adverse Reaction (Verified 05/10/18 21:09) confused lisinopril Adverse Reaction (Verified 05/10/18 21:09) Other BETA DEAN Allergy (Uncoded 05/10/18 21:09) Hives PAIN MEDICATION Allergy (Uncoded 05/10/18 21:09) Itching Medications to take at Discharge Budesonide/Formoterol 160/4.5 [Symbicort 160/4.5 Mcg Inhaler (SP)] 2 puff INHALATION BID 09/01/13 Furosemide [Lasix] 80 mg PO QODAY 09/01/13 Gabapentin [Neurontin] 800 mg PO BID 09/01/13 NIFEdipine [Procardia XL] 90 mg PO DAILY 09/01/13 Tiotropium [place] [Spiriva 18 MCG] 1 puff INHALATION DAILY 09/01/13 Albuterol Inhaler [Ventolin Hfa] 1 - 2 puff INHALATION Q6H PRN PRN 05/01/14 Bimatoprost [Lumigan Opthalmic] 1 drop EACH EYE QHS 05/01/14 Ipratropium/Albuterol Sulfate [Duoneb] 3 ml INHALATION Q6HWA.RT 05/01/14 Ascorbic Acid [Vitamin C] 1,000 mg PO DAILY@0800 07/28/15 Multivitamin [Daily Multiple Vitamin] 1 each PO DAILY 07/28/15 Aspirin [Aspirin, Baby] 81 mg PO DAILY@0800 10/28/15 Calcium Carbonate/Vitamin D3 [Oyster Shell 500-Vit D3 200 Tb] 1 each PO DAILY 10/28/15 Fexofenadine HCl [Children's Fay Allergy] 180 mg PO DAILY 10/28/15 Fish Oil 1,200 mg PO BID 10/28/15 Olopatadine HCl [Patanol] 1 drop EACH EYE BID 10/28/15 Famotidine 20 mg PO QHS 05/10/18 Furosemide [Lasix] 60 mg PO QODAY 05/10/18 Guaifenesin [Mucinex] 600 mg PO BID 05/10/18 Polyethylene Glycol 3350 [Miralax] 17 gm PO DAILY 05/10/18 traMADol [Ultram] 50 mg PO QHS 05/10/18 Docusate Calcium [Surfak] 240 mg PO BID 05/11/18 Dorzolamide HCl/Pf [Dorzolamide 2% Eye Drop] 1 drop OP BID 05/11/18 Azithromycin [Zithromax] 500 mg PO DAILY #1 tab 05/13/18 Cefdinir 300 mg PO BID #6 cap 05/13/18 Insulin Glargine [Lantus SoloStar Pen] 46 units SUBCUT QHS #1 pen 05/13/18 Prednisone 10 mg PO UD #26 tab 05/13/18 The following prescriptions were given: Azithromycin [Zithromax] 500 mg PO DAILY #1 tab Cefdinir 300 mg PO BID #6 cap Insulin Glargine [Lantus SoloStar Pen] 46 units SUBCUT QHS #1 pen Prednisone 10 mg PO UD #26 tab Primary Care Physician: Gerri Griffin NP-C [Primary Care Provider] - Please follow up with your Primary Care Physician in: 1-2 weeks Test Results: Test results from this visit will be discussed in further detail at your follow- up appointment, if applicable. Please Follow Up With: Lazaro Almendarez MD - VISUAL C DEVELOPER [place] When: 2 weeks Proposed Discharge Date: 05/13/18
--- NOTE | 2018-05-13 15:37 | DS.PCM_ITS ---
<Héctor Ojeda - Last Filed: 05/13/18 15:30> Discharge Date and Diagnosis Date of Admission: 05/10/18 Date of Discharge: 05/13/18 - Primary Discharge Diagnosis Acute on chronic hypoxic and hypercapnic respiratory failure secondary to COPD exacerbation, suspected community-acquired pneumonia presumed streptococcal, and probable acute on chronic diastolic CHF Acute metabolic encephalopathy secondary to CO2 retention Nonsustained V. tach Type 2 diabetes mellitus Hypertension Hyperlipidemia CKD stage III Obesity Debility - Secondary Discharge Diagnosis Chronic Problems Morbid obesity (Chronic) Dyslipidemia (Chronic) DM type 2 (diabetes mellitus, type 2) (Chronic) Chronic respiratory failure (Chronic) Chronic obstructive lung disease (Chronic) CKD (chronic kidney disease), stage III (Chronic) Hospital Course and Treatment Imaging Results: RAD/Chest PA and Lateral IMPRESSION: Limited study with partial visualization of a right middle lobe infiltrate. Cannot exclude left lingular infiltrate. Findings are similar to the prior study. This may represent chronic atelectasis and/or infiltrate versus recurrence. Recommend consideration for follow up CT scan of the chest for clarification when appropriate. CT/Chest WITH Contrast IMPRESSION: Diffuse bilateral peribronchial nodular groundglass infiltration with bronchiolar wall thickening, with patchy consolidation versus atelectasis in the lingula, and with reactive mediastinal and hilar lymphadenopathy. Echo: Interpretation Summary The estimated ejection fraction is 65 %. Stage 1 diastolic dysfunction. The left atrium is moderately enlarged. The right atrium is moderately enlarged. Unable to estimate RV systolic pressure due to inadequate jet, pulmonary artery pressure probably normal. Comapred to echo report dated 08/18/2012, LV function has improved from 55% to 65%. Consults: Pulm - [place] Operations: None Procedures: 2-D Echocardiogram Summary of Care Provided: Hospital course: The patient is a 78 year old M with past medical history of COPD, chronic diastolic congestive heart failure, chronic hypoxic respiratory failure, type 2 diabetes, CKD stage III, who presents to the emergency room with increased shortness of breath with a productive cough with greenish sputum, and confusion. Chest x-ray demonstrated possible interstitial pneumonia. Beta natruretic peptide was negative. He was placed on Rocephin and azithromycin, IV Lasix, and steroid therapy. He was already on triple therapy for COPD per the [facility]. Pulmonology was consulted here. Pulmonology agreed with the above plan. Patient was able to be weaned to oral steroids and remained stable on his home oxygen level which is 3-4 L/min via nasal cannula. Cultures are without significant growth. He was transitioned back to his oral home Lasix dose. He was discharged home with a prednisone taper, continuation of his prior Lasix dose, and 1 more day of azithromycin, with 3 more days of Ceftin ear. He decided to change his pulmonary care to [facility] and will need to follow-up with them in 1-2 weeks. He should see his PCP in 1-2 weeks as well. He will resume his prior home health care. He was discharged home with home health care in stable condition. This patient was seen by Héctor Ojeda PA-C under the supervision of Doctor Sahil. [] - Physical Exam General: Alert, Oriented x3, Cooperative HEENT: Atraumatic, PERRLA, EOMI, Normocephalic Neck: Supple, No JVD, Negative Carotid Bruits Lungs: Clear to auscultation, Normal air movement Cardiovascular: Regular rate, No murmurs Abdomen: Bowel Sounds Present, Soft, Non Tender, Obese Extremities: No edema, Capillary Refill Less than 3 Seconds Skin: No rashes, No breakdown Musculoskeletal: No Tenderness to Palpation of Joints or Extremities Neurological: Cranial nerves II-XII grossly intact Psych/Mental Status: Normal Affect, Appropriate Vital Signs Temp Pulse Resp BP Pulse Ox 97.5 F L 83 18 149/69 H 88 05/13/18 09:45 05/13/18 10:58 05/13/18 09:45 05/13/18 11:08 05/13/18 10:00 Oxygen Flow Rate (L/min) [ 3 AMBULATION with Oxygen] Oxygen Flow Rate (L/min) 3 Oxygen Delivery Method Simple Mask Weight: 280 lb 6.848 oz Body Mass Index (BMI) 38.6 Intake and Output for Last 24 Hours 05/11/18 05/12/18 05/13/18 23:59 23:59 23:59 Intake Total 1882 / 1882 1092 / 1092 901 / 901 Output Total 1150 / 1150 1050 / 1050 1125 / 1125 Balance 732 / 732 42 / 42 -224 / -224 Microbiology Past 72 Hours 05/10/18 21:39 Blood Culture - Preliminary Blood Culture (Wb) - Anticubital Left No growth in 48 hours. 05/10/18 21:39 Blood Culture - Preliminary Blood Culture (Wb) - Anticubital Right No growth in 48 hours. 05/11/18 10:55 Gram Stain - Final Sputum, Expectorated/Coughed Respiratory Culture - Preliminary Appears to be normal respiratory mare. Further studies to follow. 05/10/18 22:50 Urine Culture - Final Urine, Clean Catch Mixed Gram Positive Organisms 05/10/18 22:50 Streptococcus pneumoniae Antigen (M - Final Urine, Clean Catch 05/10/18 22:50 Legionella Antigen - Final Urine, Clean Catch Laboratory Tests Past 24 Hrs 05/13/18 05/13/18 06:25 06:25 WBC 7.9 RBC 4.47 L Hgb 12.5 L Hct 40.7 MCV 91.1 MCH 28.0 MCHC 30.7 L RDW 13.0 RDW Differential 42.5 Plt Count 274 MPV 10.4 Sodium 138 Potassium 4.1 Chloride 89 L Carbon Dioxide 42.0 H Anion Gap 7 BUN 31 H Creatinine 1.27 Estim Creat Clear Calc 53.46 Est GFR (MDRD) Af Amer 71 Est GFR (MDRD) Non-Af 58 L BUN/Creatinine Ratio 24.4 H Glucose 177 H Calcium 9.5 POC Glucose 05/13/18 05/13/18 05/13/18 11:10 06:46 02:58 POC Glucose 382 H 196 H 142 H 05/12/18 05/12/18 23:16 17:04 POC Glucose 284 H 330 H Discharge Diet: 1800 Calorie Control Diet, 2000 mg Sodium Diet Discharge Activity: Return to Normal Activity Home Medications: Medications to take at Discharge Budesonide/Formoterol 160/4.5 [Symbicort 160/4.5 Mcg Inhaler (SP)] 2 puff INHALATION BID 09/01/13 Furosemide [Lasix] 80 mg PO QODAY 09/01/13 Gabapentin [Neurontin] 800 mg PO BID 09/01/13 NIFEdipine [Procardia XL] 90 mg PO DAILY 09/01/13 Tiotropium [place] [Spiriva 18 MCG] 1 puff INHALATION DAILY 09/01/13 Albuterol Inhaler [Ventolin Hfa] 1 - 2 puff INHALATION Q6H PRN PRN 05/01/14 Bimatoprost [Lumigan Opthalmic] 1 drop EACH EYE QHS 10/20/14 Ipratropium/Albuterol Sulfate [Duoneb] 3 ml INHALATION Q6HWA.RT 05/01/14 Ascorbic Acid [Vitamin C] 1,000 mg PO DAILY@0800 07/28/15 Multivitamin [Daily Multiple Vitamin] 1 each PO DAILY 07/28/15 Aspirin [Aspirin, Baby] 81 mg PO DAILY@0800 10/28/15 Calcium Carbonate/Vitamin D3 [Oyster Shell 500-Vit D3 200 Tb] 1 each PO DAILY 10/28/15 Fexofenadine HCl [Children's Fay Allergy] 180 mg PO DAILY 10/28/15 Fish Oil 1,200 mg PO BID 10/28/15 Olopatadine HCl [Patanol] 1 drop EACH EYE BID 10/28/15 Famotidine 20 mg PO QHS 05/10/18 Furosemide [Lasix] 60 mg PO QODAY 05/10/18 Guaifenesin [Mucinex] 600 mg PO BID 05/10/18 Polyethylene Glycol 3350 [Miralax] 17 gm PO DAILY 05/10/18 traMADol [Ultram] 50 mg PO QHS 05/10/18 Docusate Calcium [Surfak] 240 mg PO BID 05/11/18 Dorzolamide HCl/Pf [Dorzolamide 2% Eye Drop] 1 drop OP BID 05/11/18 Azithromycin [Zithromax] 500 mg PO DAILY #1 tab 05/13/18 Cefdinir 300 mg PO BID #6 cap 05/13/18 Insulin Glargine [Lantus SoloStar Pen] 46 units SUBCUT QHS #1 pen 05/13/18 Prednisone 10 mg PO UD #26 tab 05/13/18 Following Prescrptions Were Given to Patient: Azithromycin [Zithromax] 500 mg PO DAILY #1 tab Cefdinir 300 mg PO BID #6 cap Insulin Glargine [Lantus SoloStar Pen] 46 units SUBCUT QHS #1 pen Prednisone 10 mg PO UD #26 tab Primary Care Physician: Gerri Griffin NP-C [Primary Care Provider] - Please follow up with your Primary Care Physician in: 1-2 weeks Please Follow Up With: Lazaro Almendarez MD When: 2 weeks Please Follow Up With: Elias,Gerri Nehal, TRANSFORMER TESTER-C Disposition: Home with Home Health Minutes spent on discharge:: 35 Patient Condition:: Stable Medical Necessity - Tobacco Use Smoking Status: Former smoker Meaningful Use Info Meaningful Use Diagnoses (Choose all that apply): CHF - CHF VELASQUEZ/ARB ordered at discharge?: No Reason VELASQUEZ/ARB not ordered?: Allergy Documented LVEF (%): 65 <Kenneth Baxter E - Last Filed: 05/14/18 10:44> Discharge Date and Diagnosis - Secondary Discharge Diagnosis Chronic Problems Morbid obesity (Chronic) Dyslipidemia (Chronic) DM type 2 (diabetes mellitus, type 2) (Chronic) Chronic respiratory failure (Chronic) Chronic obstructive lung disease (Chronic) CKD (chronic kidney disease), stage III (Chronic) Hospital Course and Treatment Summary of Care Provided: Hospitalist Note: Discharge summary above reviewed and I concur with above discharge and treatment plan. Patient was admitted for worsening shortness of breath and he was found to have acute on chronic hypoxic and hypercapnic respiratory failure attributed to probable community-acquired pneumonia and acute on chronic diastolic CHF. His ABG revealed pH of 7.37, PCO2 of 76 and PO2 of 61. He was treated with IV Lasix for diuresis for acute on chronic CHF, bronchodilators as well as IV Zithromax and Rocephin for pneumonia. Patient was treated with Ventimask for oxygen and with above-mentioned treatment, shortness of breath improved and he was able to maintain his pulse ox around 90% on 3 L of oxygen although he has been on 4 L at home. 2D echocardiogram revealed ejection fraction 65%, stage I diastolic dysfunction, left atrium which was moderately enlarged. Blood culture showed no growth in 48 hours. Pneumococcal and Legionella antigen were negative. Urine culture revealed mixed growth. Sputum culture revealed pseudom onas aeruginosa. His routine blood work was unremarkable. Patient was discharged home on a stable medical condition, discharged on oxygen, discharged on Zithromax and cefdinir for pneumonia, discharged on tapering course of prednisone,, discharged on Lasix, continued on his other chronic home medications without any changes. Because sputum culture revealed pseudomonas aeruginosa and after revision of his sputum culture, we decided to start him on ciprofloxacin 500 mg p.o. twice daily for 7 days, Héctor Ojeda will call the prescription to the patient's pharmacy, recommended follow-up with PCP in 1 week, follow-up with pulmonology in 2 weeks. - Physical Exam General: Alert, Oriented x3, Cooperative, minimally short of breath. HEENT: Atraumatic, PERRLA, EOMI. Neck: Supple, No JVD, Negative Carotid Bruits, Trachea Midline, Thyroid Normal. Lungs: Decreased breath sounds at the bases, occasional wheezes, rhonchi, minimally short of breath.. Cardiovascular: Regular rate, Regular Rhythm, Normal S1, Normal S2, PMI Normal. Abdomen: Bowel Sounds Present, Soft, Non Tender, Non-Distended, No Hepato- splenomegaly. Extremities: No clubbing, No cyanosis, No edema Skin: No rashes, No breakdown Neurological: Neuro grossly intact. This note was generated with [employer] dictation software. It may contain incorrect words, spelling, and punctuation that were not noted in checking the note before signing. - Physical Exam Vital Signs Temp Pulse Resp BP Pulse Ox 97.5 F L 83 18 149/69 H 88 05/13/18 09:45 05/13/18 10:58 05/13/18 09:45 05/13/18 11:08 05/13/18 10:00 Oxygen Flow Rate (L/min) [ 3 AMBULATION with Oxygen] Oxygen Flow Rate (L/min) 3 Oxygen Delivery Method Simple Mask Weight: 280 lb 6.848 oz Body Mass Index (BMI) 38.6 Intake and Output for Last 24 Hours 05/11/18 05/12/18 05/13/18 23:59 23:59 23:59 Intake Total 1882 / 1882 1092 / 1092 901 / 901 Output Total 1150 / 1150 1050 / 1050 1125 / 1125 Balance 732 / 732 42 / 42 -224 / -224 Microbiology Past 72 Hours 05/10/18 21:39 Blood Culture - Preliminary Blood Culture (Wb) - Anticubital Left No growth in 48 hours. 05/10/18 21:39 Blood Culture - Preliminary Blood Culture (Wb) - Anticubital Right No growth in 48 hours. 05/11/18 10:55 Gram Stain - Final Sputum, Expectorated/Coughed Respiratory Culture - Preliminary Appears to be normal respiratory mare. Further studies to follow. 05/10/18 22:50 Urine Culture - Final Urine, Clean Catch Mixed Gram Positive Organisms 05/10/18 22:50 Streptococcus pneumoniae Antigen (M - Final Urine, Clean Catch 05/10/18 22:50 Legionella Antigen - Final Urine, Clean Catch Laboratory Tests Past 24 Hrs 05/13/18 05/13/18 06:25 06:25 WBC 7.9 RBC 4.47 L Hgb 12.5 L Hct 40.7 MCV 91.1 MCH 28.0 MCHC 30.7 L RDW 13.0 RDW Differential 42.5 Plt Count 274 MPV 10.4 Sodium 138 Potassium 4.1 Chloride 89 L Carbon Dioxide 42.0 H Anion Gap 7 BUN 31 H Creatinine 1.27 Estim Creat Clear Calc 53.46 Est GFR (MDRD) Af Amer 71 Est GFR (MDRD) Non-Af 58 L BUN/Creatinine Ratio 24.4 H Glucose 177 H Calcium 9.5 POC Glucose 05/13/18 05/13/18 05/13/18 11:10 06:46 02:58 POC Glucose 382 H 196 H 142 H 05/12/18 23:16 POC Glucose 284 H Meaningful Use Info Meaningful Use Diagnoses (Choose all that apply): CHF - CHF VELASQUEZ/ARB ordered at discharge?: No Reason VELASQUEZ/ARB not ordered?: Allergy Documented LVEF (%): 65 Code Visit Inpatient E&M: 80927 Disch Hosp
[2018-05-14 11:35] LABS: Mycoplasma Pneum AB IgG 328 U/mL (0-99); Mycoplasma pneum. AB IgM < 770 U/mL (0-769)
--- NOTE | 2018-05-14 13:56 | CASEMGMT ---
RN CM Discharge Phone Call. DC DATE: 05/13/18 DC Disposition: Home LACE 3 Call details: Intro role of CM to patient via phone. Pt states he is feeling better. No questions re: dc instructions, f/u or prescriptions. [facility] to see pt today or tomorrow.
== END 2018-05-13 11:42 | disposition home health service (06) | DRG 177 ==
LOC: ED 23:04 → PCU 05-11
PROVIDERS: Nurse Practitioner Family; Admitting Provider Hospitalist; Emergency Provider Emergency Medicine; Family Provider Nurse Practitioner Adult Health; PCP Nurse Practitioner Adult Health; Visit Provider Hospitalist
DX: J15.1 Pneumonia due to Pseudomonas (principal); J96.22 Acute and chronic respiratory failure with hypercapnia; G93.41 Metabolic encephalopathy; I50.33 Acute on chronic diastolic (congestive) heart failure; J96.21 Acute and chronic respiratory failure with hypoxia; J44.1 Chronic obstructive pulmonary disease with (acute) exacerbation; I13.0 Hypertensive heart and chronic kidney disease with heart failure and stage 1 through stage 4 chronic kidney disease, or unspecified chronic kidney disease; I47.2 Ventricular tachycardia; N18.3 Chronic kidney disease, stage 3 (moderate); E78.5 Hyperlipidemia, unspecified; E66.01 Morbid (severe) obesity due to excess calories; Z68.38 Body mass index [BMI] 38.0-38.9, adult; E11.22 Type 2 diabetes mellitus with diabetic chronic kidney disease; Z99.81 Dependence on supplemental oxygen
CPT/HCPCS: 36415; 36600; 71046; 71260; 80048; 80053; 81001; 82803; 82962; 83605; 83880; 84484; 85025; 85027; 85610; 85730; 86738; 87040; 87070; 87077; 87086; 87088; 87186; 87205; 87449; 93005; 93306; 94640; 94667; 97162; 97165; 97530; 97802; 99283; J7030; Q9967; A4216; J1940

== ENCOUNTER → 2018-06-02 17:30 | Outpatient (CLI) | payer MEDICAID, MEDICARE, SELFPAY | PROVIDERS: Family Provider Nurse Practitioner Adult Health; PCP Nurse Practitioner Adult Health; Referring Provider Nurse Practitioner Adult Health; Visit Provider Nurse Practitioner Adult Health | DX: J15.8 Pneumonia due to other specified bacteria (principal); J41.0 Simple chronic bronchitis; R68.83 Chills (without fever) | CPT/HCPCS: 87070; 87077; 87186; 87205 ==

== ENCOUNTER → 2018-07-30 16:48 | Outpatient (CLI) | payer MEDICARE, SELFPAY ==
[2018-07-30 17:41] LABS: Hemoglobin 13.2 g/dl (13.0-16.5); Mean Corp Hgb Conc 30.7 g/gl (32-36); Mean Corpuscular Hgb 27.6 pg (27.0-32.0); Mean Corpuscular Volume 89.8 fL (80-94); Mean Platelet Vol. 12.3 fl (6.2-12.0); Platelet Count 222 K/mm3 (150-450); RBC Distribution Width CV 13.8 % (11.6-14.6); RBC Distribution Width SD 45.1 fl (35.1-43.9); Red Blood Count 4.79 M/mm3 (4.6-6.2); White Blood Count 5.6 K/mm3 (4.4-11.0)
[2018-07-30 17:42] LABS: Scan Indicated on CBC? Y/N NO
[2018-07-30 18:07] LABS: ALB/GLOB Ratio 1.2 RATIO (0.9-2.4); AST(SGOT) 11 U/L (15-37); Alanine Aminotransfer ALT/SGPT 16 U/L (16-61); Albumin, Serum 3.7 g/dL (3.2-5.0); Alkaline Phosphatase 81 U/L (45-117); Anion Gap 9 (5-15); BUN 17 mg/dL (7-18); Calcium,Total 9.2 mg/dL (8.5-10.1); Chloride 101 mmol/L (98-107); Creatinine, Serum 1.31 mg/dL (0.70-1.30); EST Glomerular Filtration Rate 56 mL/min (>60); Est Glom Filt Rate - Afr Amer 68 mL/min (>60); Glucose 191 mg/dL (74-106); Potassium 3.7 mmol/L (3.5-5.1); Protein, Total 6.7 g/dL (6.4-8.2); Sodium Level 140 mmol/L (136-145); Vitamin B12 374 pg/mL (211-911); Vitamin D,25 Hydroxy 32.7 ng/mL (29.95-100.01)
[2018-07-30 19:36] LABS: Hemoglobin A1c 7.8 % (4.2-6.3)
--- OUTSIDE RECORDS SUMMARY | 2018-10-04 08:00 | XMS RPT_ITS ---
:1940 Author Organization OHIP Support Name Relationship Address Phone AL SIDHU Unavailable [address] + [place] [address] DAVID SIDHU Unavailable [address] + [place] [address] R Unavailable Unavailable Unavailable AL SIDHU Unavailable [address] + [place] [address] DAVID SIDHU Unavailable [address] + [place] [address] R Unavailable Unavailable Unavailable AL SIDHU Unavailable [address] + [place] [address] DAVID SIDHU Unavailable [address] + [place] [address] R Unavailable Unavailable Unavailable AL SIDHU Unavailable [address] + [place] [address] KRISHNA SIDHUT Unavailable [address] + [place] [address] R Unavailable Unavailable Unavailable AL SIDHU Unavailable [place] [address] DAVID SIDHU Unavailable [address] + [place] [address] R Unavailable Unavailable Unavailable AL SIDHU Unavailable [address] + [place] [address] KRISHNA SIDHUT Unavailable [address] + [place] [address] R Unavailable Unavailable Unavailable AL SIDHU Unavailable [address] + [place] [address] KRISHNA SIDHUT Unavailable [address] + [place] [address] R Unavailable Unavailable Unavailable [place], AL Unavailable [address] + [place] [address] JARVIS SIDHUARET Unavailable [address] + [place] [address] R Unavailable Unavailable Unavailable [place], [place]available [place] [address] PERTJARVIS PEREZARET Unavailable [address] + [place] [address] R Unavailable Unavailable Unavailable [place], AL Unavailable [address] + [place] [address] JARVIS SIDHUARET Unavailable [address] + [place] [address] R Unavailable Unavailable Unavailable [place], AL Unavailable [address] + [place] [address] PERTJARVIS PEREZARET Unavailable [address] + [place] [address] R Unavailable Unavailable Unavailable NAHUM, AL Unavailable [address] + [place] [address] JARVIS SIDHUARET Unavailable [address] + [place] [address] R Unavailable Unavailable Unavailable [place], AL Unavailable [address] + [place] [address] PERTJARVIS PEREZARET Unavailable [address] + [place] [address] R Unavailable Unavailable Unavailable [place], AL Unavailable [address] + [place] [address] PERTJARVIS PEREZARET Unavailable [address] + [place] [address] R Unavailable Unavailable Unavailable Care Team Providers Name Role Phone Gerri Griffin WAREHOUSE SUPERVISOR 3RD SHIFT-C Attending Unavailable Gerri Griffin WAREHOUSE SUPERVISOR 3RD SHIFT-Sherman Referring Unavailable Gerri Griffin NP-Sherman Primary Care Unavailable Gerri Griffin NP-Sherman Attending Unavailable Arthur Robles Primary Care Unavailable Elias, Gerri F. WAREHOUSE SUPERVISOR 3RD SHIFT-C Referring Unavailable Gerri Griffin F. WAREHOUSE SUPERVISOR 3RD SHIFT-C Attending Unavailable Arthur Robles Primary Care Unavailable Gerri Griffin F. WAREHOUSE SUPERVISOR 3RD SHIFT-C Referring Unavailable Gerri Griffin F. WAREHOUSE SUPERVISOR 3RD SHIFT-C Primary Care Unavailable Agyepong, Catalino Admitting Unavailable Ashelfah, Ghasem Attending Unavailable Erickson, Lazaro Consulting Unavailable Agyepong, Catalino Admitting Unavailable Agyepong, Catalino Attending Unavailable Gerri Griffin F. WAREHOUSE SUPERVISOR 3RD SHIFT-C Primary Care Unavailable Agyepong, Catalino Consulting Unavailable Agyepong, Catalino Admitting Unavailable Shahid Griffinara F. WAREHOUSE SUPERVISOR 3RD SHIFT-C Primary Care Unavailable Erickson, Lazaro Consulting Unavailable Ashelfah, Ghasem Attending Unavailable Ashelfah, Ghasem Consulting Unavailable Agyepong, Catalino Admitting Unavailable Shahid Griffinara F. WAREHOUSE SUPERVISOR 3RD SHIFT-C Primary Care Unavailable Erickson, Lazaro Consulting Unavailable Ashelfah, Ghasem Attending Unavailable Ashelfah, Ghasem Consulting Unavailable Agyepong, Catalino Admitting Unavailable Erickson, Lazaro Attending Unavailable Gerri Griffin F. WAREHOUSE SUPERVISOR 3RD SHIFT-C Primary Care Unavailable Erickson, Lazaro Consulting Unavailable Ashelfah, Ghasem Consulting Unavailable Ashelfah, Ghasem Attending Unavailable Agyepong, Catalino Admitting Unavailable Gerri Griffin F. WAREHOUSE SUPERVISOR 3RD SHIFT-C Primary Care Unavailable Erickson, Lazaro Consulting Unavailable Ashelfah, Ghasem Consulting Unavailable Erickson, Lazaro Attending Unavailable Agyepong, Catalino Referring Unavailable Shahid Griffinara F. WAREHOUSE SUPERVISOR 3RD SHIFT-C Attending Unavailable Gerri Griffin F. WAREHOUSE SUPERVISOR 3RD SHIFT-C Primary Care Unavailable Ada Allen Attending Unavailable Gerri Griffin F. WAREHOUSE SUPERVISOR 3RD SHIFT-C Referring Unavailable Nick Alexander Attending Unavailable Ashelfah, Ghasem Referring Unavailable Gerri Griffin F. WAREHOUSE SUPERVISOR 3RD SHIFT-C Attending Unavailable Shahid Griffinara F. WAREHOUSE SUPERVISOR 3RD SHIFT-C Referring Unavailable Gerri Griffin F. WAREHOUSE SUPERVISOR 3RD SHIFT-C Primary Care Unavailable PROBLEMS PROBLEMS DATE TYPE CONDITION / CODE ATTENDING STATUS SOURCE 07/30/2018 Unknown I10 - Essential Gerri Griffin Active [facility] (primary) F. WAREHOUSE SUPERVISOR 3RD SHIFT-C Community hypertension / Hospital I10(ICD-10) Repository 07/30/2018 Unknown E11.65 - Type 2 Gerri Griffin Active [place] diabetes mellitus F. WAREHOUSE SUPERVISOR 3RD SHIFT-C [facility] with hyperglycemia / Hospital E11.65(ICD-10) Repository 07/30/2018 Unknown E56.8 - Deficiency Gerri Griffin Active [facility] of other vitamins / F. WAREHOUSE SUPERVISOR 3RD SHIFT-C Community E56.8(ICD-10) Hospital Repository 07/30/2018 Unknown E53.8 - Deficiency Gerri Griffin Active [facility] of other specified B F. WAREHOUSE SUPERVISOR 3RD SHIFT-C Community group vitamins / Hospital E53.8(ICD-10) Repository 06/05/2018 Unknown J15.8 - Pneumonia Gerri Griffin Active [place] due to other F. WAREHOUSE SUPERVISOR 3RD SHIFT-C Community specified bacteria / Hospital J15.8(ICD-10) Repository 06/05/2018 Unknown J41.0 - Simple Gerri Griffin Active [place] chronic bronchitis / F. WAREHOUSE SUPERVISOR 3RD SHIFT-C Community J41.0(ICD-10) Hospital Repository 06/05/2018 Unknown R05 - Cough / Gerri Griffin Active [place] R05(ICD-10) F. WAREHOUSE SUPERVISOR 3RD SHIFT-C Community Hospital Repository 06/05/2018 Unknown R68.83 - Chills Gerri Griffin Active [place] (without fever) / F. WAREHOUSE SUPERVISOR 3RD SHIFT-C Community R68.83(ICD-10) Hospital Repository 05/25/2018 Unknown R06.02 - Shortness Allen, Active [place] of breath / [facility] Community R06.02(ICD-10) Hospital Repository 05/18/2018 Unknown J96.21 - Acute and Erickson, Lazaro Active [facility] chronic respiratory Community failure with hypoxia Hospital / J96.21(ICD-10) Repository 05/18/2018 Unknown J96.22 - Acute and Erickson, Lazaro Active [facility] chronic respiratory Community failure with Hospital hypercapnia / Repository J96.22(ICD-10) 05/18/2018 Unknown G93.41 - Metabolic Erickson, Lazaro Active [facility] encephalopathy / Community G93.41(ICD-10) Hospital Repository 05/18/2018 Unknown E66.9 - Obesity, Erickson, Lazaro Active [place] unspecified / Community E66.9(ICD-10) Hospital Repository 05/18/2018 Unknown E11.22 - Type 2 Erickson, Lazaro Active [place] diabetes mellitus Community with diabetic Hospital chronic kidney Repository disease / E11.22(ICD-10) 05/18/2018 Unknown N18.3 - Chronic Erickson, Lazaro Active [facility] kidney disease, Community stage 3 (moderate) / Hospital N18.3(ICD-10) Repository 01/11/2018 Unknown E78.2 - Mixed Gerri Griffin Active [facility] hyperlipidemia / F. WAREHOUSE SUPERVISOR 3RD SHIFT-C Community E78.2(ICD-10) Hospital Repository PROCEDURES PROCEDURES No Procedure Records FoundRESULTS RESULTS CBC-COMPLETE BLOOD CNT Collected: 07/30/2018 Status: F Source: [place] NO DIFF 3:15 PM [facility] REPOSITORY TYPE CODE TESTS RESULT OUT OF RANGE REFERENCE UNITS LAB L100.1000 4.4-11.0 K/mm3 Normal WBC 5.6 LAB L100.1200 4.6-6.2 M/mm3 Normal RBC 4.79 LAB L100.1300 13.0-16.5 g/dl Normal HGB 13.2 LAB L100.1400 40-54 % Normal HCT 43.0 LAB L100.1500 80-94 fL Normal MCV 89.8 LAB L100.1600 27.0-32.0 pg Normal MCH 27.6 LAB L100.1700 32-36 g/gl Low MCHC 30.7 LAB L100.1810 11.6-14.6 % Normal RDW CV 13.8 LAB L100.1820 35.1-43.9 fl High RDW SD 45.1 LAB L100.1900 150-450 K/mm3 Normal PLT 222 LAB L100.2000 6.2-12.0 fl High MPV 12.3 Performed By: #### L100.0500 #### [facility] [place], [address] COMPREHENSIVE METABOLIC Collected: 07/30/2018 Status: F Source: [place] MARTIN 3:15 PM [facility] REPOSITORY TYPE CODE TESTS RESULT OUT OF RANGE REFERENCE UNITS LAB L501.0100 74-106 mg/dL High GLU 191 Result Comment: Fasting Glucose result greater than or equal to 126 mg/dL suggests DIABETES MELLITUS per A.D.A. criteria. Please note revised GLUCOSE reference range effective 2017. LAB L501.1000 7-18 mg/dL Normal BUN 17 LAB L501.1100 0.70-1.30 mg/dL High CREAT,SERUM 1.31 Result Comment: The validity of the calculated GFR AND GFRAA in patients over 70 years has not been determined. Clinical correlation is essential. LAB L501.1110 >60 mL/min Low EST GFR 56 Result Comment: Non- GFR Calc LAB L501.1115 >60 mL/min Normal EST GFR - AA 68 Result Comment: GFR Calc LAB L501.1300 10-20 RATIO Normal BUN/CRE 13.0 LAB L501.1500 6.4-8.2 g/dL T Normal PROT 6.7 LAB L501.1800 3.2-5.0 g/dL Normal ALB 3.7 LAB L501.1950 2.2-4.2 g/dL Normal GLOB 3.0 LAB L501.2000 0.9-2.4 RATIO Normal A/G 1.2 LAB L501.2200 8.5-10.1 mg/dL CA Normal 9.2 LAB L501.4100 15-37 U/L Low AST 11 LAB L501.4305 45-117 U/L Normal ALK P 81 LAB L501.4405 16-61 U/L Normal ALT 16 LAB L501.4600 0.20-1.00 mg/dL T Normal BILI 0.20 LAB L501.5300 136-145 mmol/L NA Normal 140 LAB L501.5600 3.5-5.1 mmol/L K Normal 3.7 LAB L501.5900 98-107 mmol/L CL Normal 101 LAB L501.6100 21.0-32.0 mmol/L Normal CO2 30.0 LAB L501.6200 5-15 Normal GAP 9 Performed By: #### L500.4050 #### [facility] [address] [place], [address] VITAMIN B12 Collected: 07/30/2018 Status: F Source: [place] 3:15 PM [facility] REPOSITORY TYPE CODE TESTS RESULT OUT OF RANGE REFERENCE UNITS LAB L503.0105 211-911 pg/mL Normal Vitamin B12 374 Performed By: #### L503.0105, L506.1000 #### [facility] [address] [facility] [place], [address] VITAMIN D,25 HYDROXY Collected: 07/30/2018 Status: F Source: [place] 3:15 PM [facility] REPOSITORY TYPE CODE TESTS RESULT OUT OF RANGE REFERENCE UNITS LAB L506.1000 29.95-100.01 ng/mL Normal Vitamin D 32.7 25-OH Result Comment: Vitamin D 25(OH) Status Range Deficiency <20 ng/mL (50nmol/L) Insuffciency 20 - 30 ng/mL (50 - 75 nmol/L) Sufficiency 30 - 100 ng/mL (75 - 250 nmol/L) Toxicity >100 ng/mL (>250 nmol/L) Performed By: #### L503.0105, L506.1000 #### [facility] [address] [place], [address] HEMOGLOBIN A1C Collected: 07/30/2018 Status: F Source: [place] 3:15 PM [facility] REPOSITORY TYPE CODE TESTS RESULT OUT OF RANGE REFERENCE UNITS LAB L501.9985 4.2-6.3 % High HGB A1C 7.8 Performed By: #### L501.9985 #### [facility] [address] [facility] [place], [address] Observed: 06/02/2018 Status: F Source: [place] CULTURE, SPUTUM 5:30 PM [facility] REPOSITORY CALL RESULTS TO [id number] OPTION 1 AND [phone] Gram Stain Acceptable Specimen? Yes (<25 Epithelial cells per/lpf) Gram Stain 3+ White Blood Cells 4+ Gram negative cocco bacillus 2+ Gram positive cocci Resp. Culture ORGANISM 1: Achromobacter xylosoxidans Amount Growth 3+ Achromobacter xylosoxidans: REACTION Cefepime $ >=64 R Ceftazidime *NF 4 S Ceftriaxone $ >=64 R Ciprofloxacin $ >=4 R Gentamicin $ >=16 R Imipenem *NF 1 S Levofloxacin $ 4 I Piperacillin/Tazobactam $$ <=4 S Tobramycin $ 8 I Trimethoprim/Sulfametho $ <=20 S (NF) indicates non-formulary drug at [facility]. Approval by Infectious Disease Specialist required before non-formulary drugs may be ordered and/or dispensed. Performed By: #### M100.0800 #### [facility] [address] [place], [place], [address] PULMONARY VISIT REPORT Observed: 05/26/2018 Status: F Source: [place] 3:52 PM [facility] REPOSITORY [facility] [address] [place], [place] [address] OFFICE VISIT Date of Service: 05/25/18 MR#: [id number] Acct: [id number] Name: LIZZY SIDHU Rep #: [id number] : 1940 Provider: Ada Allen Age/Sex: 78/M [facility] Status: Signed Assessment AND Plan 1. Chronic obstructive pulmonary disease, unspecified COPD type J44.9 Plan He does not appear to be in exacerbation of his COPD today. Plan for pulmonary function test to quantify his lung disease. No change in maintenance medications at this time. Follow-up with Dr. Almendarez in 2 months. Contact the office with any new or worsening symptoms in the meantime. 2. Chronic respiratory failure with hypoxia and hypercapnia J96.11; J96.12 Plan The patient is using and benefiting from oxygen. Continue to utilize to maintain a saturation of 89-92%. Would benefit from BiPAP therapy also. Plan for walking oximetry to accurately determine what amount of supplemental oxygen is needed with ambulation. It is quite possible that given the patient's compliance with diet and diuretics that he may require less supplemental oxygen than before. Follow-up in 3 months. Plan Detail Other Orders Orders: Follow Up 2 Months ([facility]) [facility] Hospital FU: Chief Complaint: Shortness of breath on exertion HPI Comments Details: This is a 78 year old very pleasant M, currently under the care of ESTEBAN Caro, here to follow up after a recent hospitalization at [facility], from May 10 - May 13, 2018 for acute on chronic hypoxic and hypercapnic respiratory failure secondary to COPD exacerbation and suspected community acquired pneumonia presumed streptococcal. The hospital stay was relatively uncomplicated. 31 echocardiogram showing an EF of 65%, stage I diastolic dysfunction but unable to estimate pressure. Pages of hospital documentation was reviewed, and found to be significant for arterial blood gas to document a PCO2 of 76 with a PO2 of 61. The patient was treated for acute on chronic congestive heart failure with IV Lasix. His pneumonia was treated with Zithromax and Rocephin. He has been on supplemental oxygen for approximately 8 years, returned to his baseline of 4 L/min prior to being discharged. Chest x-ray from May 10 showed right middle lobe infiltrate, CT scan of the chest from May 11 showed diffuse bilateral peribronchial nodular groundglass infiltration in bronchiolar wall thickening with patchy consolidation versus atelectasis in the lingula, and with reactive mediastinal and hilar lymphadenopathy. Upon discharge, the patient completed a 5 day course of azithromycin and a 3 day course of cefdinir. Today, he presents to the office in a wheelchair and wearing nasal cannula oxygen. He states that he has nearly returned to his baseline. He is proud to report that over the past year he has lost 100 pounds by portion control. He would like to lose an additional 80 pounds. He also reports that compliance with his diuretic has been helpful in his weight loss. He is currently on Symbicort 2 puffs twice daily. He reports rinsing his mouth out after each use. Denies any medication side effects such as sore throat or thrush. He is also on Spiriva once daily. He does report shortness of breath on exertion. He denies any shortness of breath with rest or conversation. He denies any cough, sputum production or hemoptysis. He denies any wheezing, chest tightness, chest pain or palpitations. He also denies any fever, chills or body aches. He reports a improvement in his lower extremity edema. STOP-BANG Assessment: 1. Do you snore? Yes 2. Are you frequently tired during the day? Yes 3. Have you been observed gasping or choking while asleep? No 4. Do you have high blood pressure? Yes 5. BMI - greater than 35kg/m2? Yes 6. Age - over 50 years old? Yes 7. Neck Circumference - greater than 37 cm for females or 40 cm for males? Yes 8. Gender - male? Yes Total STOP-BANG score = 7 which indicates high risk for obstructive sleep apnea (yes to 3 or more questions = high risk of sleep apnea). Intake Vital Signs05/25/18 Height 6 ft 05/25/18 Weight: 282 lb 05/25/18 Body Mass Index (BMI) 38.2 Intake Visit Reasons: Hospital FU Accompanied by: Self Allergies codeine Adverse Reaction (Verified 05/25/18 10:50) confused lisinopril Adverse Reaction (Verified 05/25/18 10:50) Other BETA DEAN Allergy (Uncoded 05/25/18 10:50) Hives PAIN MEDICATION Allergy (Uncoded 05/25/18 10:50) Itching Medications Budesonide/Formoterol 160/4.5 [Symbicort 160/4.5 Mcg Inhaler (SP)] 2 puff INHALATION BID 09/01/13 [History Confirmed 05/25/18] Furosemide [Lasix] 80 mg PO QODAY 09/01/13 [History Confirmed 05/25/18] Gabapentin [Neurontin] 800 mg PO BID 09/01/13 [History Confirmed 05/25/18] NIFEdipine [Procardia XL] 90 mg PO DAILY 09/01/13 [History Confirmed 05/25/18] Tiotropium [place] [Spiriva 18 MCG] 1 puff INHALATION DAILY 09/01/13 [History Confirmed 05/25/18] Albuterol Inhaler [Ventolin Hfa] 1 - 2 puff INHALATION Q6H PRN PRN 05/01/14 [History Confirmed 05/25/18] Bimatoprost [Lumigan Opthalmic] 1 drp EACH EYE QHS 05/01/14 [History Confirmed 05/25/18] Ipratropium/Albuterol Sulfate [Duoneb] 3 ml INHALATION Q6HWA.RT 05/01/14 [History Confirmed 05/25/18] Ascorbic Acid [Vitamin C] 1,000 mg PO DAILY@0800 07/28/15 [History Confirmed 05/25/18] Multivitamin [Daily Multiple Vitamin] 1 ea PO DAILY 07/28/15 [History Confirmed 05/25/18] Aspirin [Aspirin, Baby] 81 mg PO DAILY@0800 10/28/15 [History Confirmed 05/25/18] Calcium Carbonate/Vitamin D3 [Oyster Shell 500-Vit D3 200 Tb] 1 ea PO DAILY 10/28/15 [History Confirmed 05/25/18] Fexofenadine HCl [Children's Fay Allergy] 180 mg PO DAILY 10/28/15 [History Confirmed 05/25/18] Fish Oil 1,200 mg PO BID 10/28/15 [History Confirmed 05/25/18] Olopatadine HCl [Patanol] 1 drp EACH EYE BID 10/28/15 [History Confirmed 05/25/18] Famotidine 20 mg PO QHS 05/10/18 [History Confirmed 05/25/18] Furosemide [Lasix] 60 mg PO QODAY 05/10/18 [History Confirmed 05/25/18] Guaifenesin [Mucinex] 600 mg PO BID 05/10/18 [History Confirmed 05/25/18] Polyethylene Glycol 3350 [Miralax] 17 gm PO DAILY 05/10/18 [History Confirmed 05/25/18] traMADol [Ultram] 50 mg PO QHS 05/10/18 [History Confirmed 05/25/18] Docusate Calcium [Surfak] 240 mg PO BID 05/11/18 [History Confirmed 05/25/18] Dorzolamide HCl/Pf [Dorzolamide 2% Eye Drop] 1 drp OP BID 05/11/18 [History Confirmed 05/25/18] Insulin Glargine [Lantus SoloStar Pen] 46 units SUBCUT QHS #1 pen 05/13/18 [Rx Confirmed 05/25/18] PFSH Medical History Prostate cancer (Resolved) Bilateral pneumonia (Acute) Shortness of breath (Acute) Morbid obesity (Chronic) Dyslipidemia (Chronic) DM type 2 (diabetes mellitus, type 2) (Chronic) Chronic respiratory failure (Chronic) Chronic obstructive lung disease (Chronic) CKD (chronic kidney disease), stage III (Chronic) Surgical History History of hip surgery (Resolved) Family History Brother Leukemia Social History Smoking Status: Former smoker how long ago did patient quit smokin, 2ppd second hand exposure: Yes Review of Systems Const CONSTITUTIONAL: Positive daytime sleepiness, fatigue and weight loss; negative anorexia, body ache, chills, fever(s), night sweats, oral thrush, stops breathing during sleep, weight loss, sleeping in chair, weight gain, frequent colds, seasonal allergies, other, headache(s) or orthopnea EETM Ear Nose Throat Mouth: Positive hearing normal; negative hard of hearing, hoarseness, dry mouth in morning, change in vision, itchy eyes, eye pain, swallowing Difficulty, ear pain, nose bleed, headache(s), mouth pain, nasal congestion, nasal discharge, post nasal drip, sinus pain, sinus pressure, sore throat or other Cardio Cardiovascular: Negative chest pain, chest pain at rest, chest pain with activity, irregular heart rhythm, edema, shortness of breath when lying down, palpitations, murmur or other Resp Respiratory: Positive as per HPI, shortness of breath shortness of breath: Positive with activity and cough cough: Positive productive color: Positive thick, clear and white; negative pain with cough, wheezing, chest congestion, chest tightness, pain on inspiration, inhalers, increase use of rescue inhalers, snoring, apnea or other Gastro Gastrointestional: Negative bloody stools, change in appetite, difficulty swallowing, reflux, hematemesis, melena stool, loose stool, constipation or other Genitourinary: Negative blood in urine, nocturia, pain with urination or other Musc Musculoskeletal: Negative body pain, back pain, neck pain or other Skin/Breast Skin/Breast: Negative dry skin, itching, rash, unusual bruising, breast lump or other Neuro Neurological: Negative restless legs, confusion, weakness or other Psych Psychocological: Negative abnormal sleep pattern, anxiety, thoughts of hurting self/others, hopelessness or other Lymph Lymphatic: Negative easy bleeding, easy bruising, swollen lymph nodes or other Exam Const Constitutional: Positive conversant, cooperative, in no acute respiratory distress, well developed, well nourished, good hygiene, wearing supplemental oxygen and obese Head Head: Positive normocephalic and atraumatic; negative cyanosis of lips/distal nose Eyes Eye: Positive clear conjunctiva; negative nystagmus or scleral abnormality Ears Ear: Positive hearing normal and external ears normal; negative hard of hearing Nose Nose: Positive external nose normal and no nasal discharge; negative epistaxis Mouth Mouth: Positive oral mucosae normal, no lesions, poor dentition and crowded posterior oropharynx; negative post nasal drip, malodorous breath or oral thrush present Mallampati Score: III: Mallampati Score Neck Neck: Positive normal visual inspection, full ROM, trachea midline, thick neck and male neck greater than 43 cm (17 in); negative lymphadenopathy, JVD or tender Chest Wall Chest: Positive normal inspection of the chest and symmetric chest movement; negative increased A/P diameter Resp lung sounds: Positive diminished, wheeze present on forced exhalation, normal expiratory time and normal respiratory effort; negative rhonchi, rales or dullness to percussion Cardio Cardiac: Positive regular rate and regular rhythm; negative murmur GI GI: Positive normal to inspection and obese; negative distended Genitourinary: Positive deferred Musc Musculoskeletal: Positive ROM normal and in a wheelchair; negative kyphosis or scoliosis Skin Pulmonary Skin Exam: Positive intact; negative rash or lesion Pulses Pulse: Yes pulses normal x4 extremities Extremities Extremities: Yes capillary refill normal, No clubbing, No cyanosis, Yes edema Location: lower extremity location: Bilateral pitting trace Neuro Neurologic: Yes conversant, Yes no focal neuro deficits, Yes normal concentration, Yes understands questions, Yes cooperative, Yes normal cognition, Yes normal coordination Lymph Lymphatic: No lymphadenopathy, No tenderness, No cervical adenopathy Psych Appearance: Positive grossly normal, eye contact and well kempt Mental Status: Positive mental status grossly normal Mood: Positive congruent mood Affect: Positive normal affect Coding Level of Care Code Off vis,est,level 4 Diagnoses Chronic obstructive pulmonary disease, unspecified COPD type J44.9 COPD type: unspecified COPD Chronic respiratory failure with hypoxia and hypercapnia J96.11; J96.12 Respiratory failure complication: hypoxia and hypercapnia 05/26/18 1552 <Electronically signed by Ada ORELLANA> Date Ada ORELLANA Cosigner Signature: Date (if applicable) CC: WAREHOUSE SUPERVISOR 3RD SHIFT-C Gerri Griffin DISCHARGE SUMMARY Observed: 05/14/2018 Status: F Source: [place] 3:09 PM [facility] REPOSITORY [facility] Medical Records Department [address] [place] [address] Discharge Summary 05/13/18 1530 MR#: [id number] Acct: [id number] Name: LIZZY SIDHU Rep #: [id number] : 1940 78 From: Héctor ORTIZ PCP: ESTEBAN Caro Status: DIS IN Y Location: [facility] [id number] ADDENDUM by Kenneth Baxter on 05/14/18 at 1509 05/14/18 1509 <Electronically signed by Kenneth Baxter MD> Date Kenneth Baxter MD cc: ESTEBAN Griffin; ANGEL Ojeda; Lazaro Almendarez MD; Kenneth Baxter * Signed ADDENDUM by ANGEL Ojeda on 05/14/18 at 1050 Code Visit Addendum: Sputum demonstrated pseudomonas with suspectibility to cipro, called patient to inform him that we sent cipro 500 bid for 5 days to the pharmacy, and to discontinued cefdinir. 05/14/18 1050 <Electronically signed by Héctor ORTIZ> Date Héctor Ojeda cc: ESTEBAN Griffin; ANGEL Ojeda; Lazaro Almendarez MD; Kenneth Baxter * Signed <Héctor Ojeda - Last Filed: 05/13/18 15:30> Discharge Date and Diagnosis Date of Admission: 05/10/18 Date of Discharge: 05/13/18 - Primary Discharge Diagnosis Acute on chronic hypoxic and hypercapnic respiratory failure secondary to COPD exacerbation, suspected community-acquired pneumonia presumed streptococcal, and probable acute on chronic diastolic CHF Acute metabolic encephalopathy secondary to CO2 retention Nonsustained V. tach Type 2 diabetes mellitus Hypertension Hyperlipidemia CKD stage III Obesity Debility - Secondary Discharge Diagnosis Chronic Problems Morbid obesity (Chronic) Dyslipidemia (Chronic) DM type 2 (diabetes mellitus, type 2) (Chronic) Chronic respiratory failure (Chronic) Chronic obstructive lung disease (Chronic) CKD (chronic kidney disease), stage III (Chronic) Hospital Course and Treatment Imaging Results: RAD/Chest PA and Lateral IMPRESSION: Limited study with partial visualization of a right middle lobe infiltrate. Cannot exclude left lingular infiltrate. Findings are similar to the prior study. This may represent chronic atelectasis and/or infiltrate versus recurrence. Recommend consideration for follow up CT scan of the chest for clarification when appropriate. CT/Chest WITH Contrast IMPRESSION: Diffuse bilateral peribronchial nodular groundglass infiltration with bronchiolar wall thickening, with patchy consolidation versus atelectasis in the lingula, and with reactive mediastinal and hilar lymphadenopathy. Echo: Interpretation Summary The estimated ejection fraction is 65 %. Stage 1 diastolic dysfunction. The left atrium is moderately enlarged. The right atrium is moderately enlarged. Unable to estimate RV systolic pressure due to inadequate jet, pulmonary artery pressure probably normal. Comapred to echo report dated 08/18/2012, LV function has improved from 55% to 65%. Consults: Pulm - [place] Operations: None Procedures: 2-D Echocardiogram Summary of Care Provided: Hospital course: The patient is a 78 year old M with past medical history of COPD, chronic diastolic congestive heart failure, chronic hypoxic respiratory failure, type 2 diabetes, CKD stage III, who presents to the emergency room with increased shortness of breath with a productive cough with greenish sputum, and confusion. Chest x-ray demonstrated possible interstitial pneumonia. Beta natruretic peptide was negative. He was placed on Rocephin and azithromycin, IV Lasix, and steroid therapy. He was already on triple therapy for COPD per the [facility]. Pulmonology was consulted here. Pulmonology agreed with the above plan. Patient was able to be weaned to oral steroids and remained stable on his home oxygen level which is 3-4 L/min via nasal cannula. Cultures are without significant growth. He was transitioned back to his oral home Lasix dose. He was discharged home with a prednisone taper, continuation of his prior Lasix dose, and 1 more day of azithromycin, with 3 more days of Ceftin ear. He decided to change his pulmonary care to [facility] and will need to follow- up with them in 1-2 weeks. He should see his PCP in 1-2 weeks as well. He will resume his prior home health care. He was discharged home with home health care in stable condition. This patient was seen by Héctor Ojeda PA-C under the supervision of Doctor Baxter. [] - Physical Exam General: Alert, Oriented x3, Cooperative HEENT: Atraumatic, PERRLA, EOMI, Normocephalic Neck: Supple, No JVD, Negative Carotid Bruits Lungs: Clear to auscultation, Normal air movement Cardiovascular: Regular rate, No murmurs Abdomen: Bowel Sounds Present, Soft, Non Tender, Obese Extremities: No edema, Capillary Refill Less than 3 Seconds Skin: No rashes, No breakdown Musculoskeletal: No Tenderness to Palpation of Joints or Extremities Neurological: Cranial nerves II-XII grossly intact Psych/Mental Status: Normal Affect, Appropriate Vital Signs Temp Pulse Resp BP Pulse Ox 97.5 F L 83 18 149/69 H 88 05/13/18 09:45 05/13/18 10:58 05/13/18 09:45 05/13/18 11:08 05/13/18 10:00 Oxygen Flow Rate (L/min) [ 3 AMBULATION with Oxygen] Oxygen Flow Rate (L/min) 3 Oxygen Delivery Method Simple Mask Weight: 280 lb 6.848 oz Body Mass Index (BMI) 38.6 Intake and Output for Last 24 Hours Intake Total 1882 / 1882 1092 / 1092 901 / 901 Output Total 1150 / 1150 1050 / 1050 1125 / 1125 Balance 732 / 732 42 / 42 -224 / -224 Microbiology Past 72 Hours 05/10/18 21:39 Blood Culture - Preliminary Blood Culture (Wb) - Anticubital Left No growth in 48 hours. Laboratory Tests Past 24 Hrs WBC 7.9 RBC 4.47 L Hgb 12.5 L Hct 40.7 POC Glucose POC Glucose 382 H 196 H 142 H POC Glucose 284 H 330 H Discharge Diet: 1800 Calorie Control Diet, 2000 mg Sodium Diet Discharge Activity: Return to Normal Activity Home Medications: Medications to take at Discharge Budesonide/Formoterol 160/4.5 [Symbicort 160/4.5 Mcg Inhaler (SP)] 2 puff INHALATION BID 09/01/13 Furosemide [Lasix] 80 mg PO QODAY 09/01/13 Gabapentin [Neurontin] 800 mg PO BID 09/01/13 NIFEdipine [Procardia XL] 90 mg PO DAILY 09/01/13 Tiotropium [place] [Spiriva 18 MCG] 1 puff INHALATION DAILY 09/01/13 Albuterol Inhaler [Ventolin Hfa] 1 - 2 puff INHALATION Q6H PRN PRN 05/01/14 Bimatoprost [Lumigan Opthalmic] 1 drop EACH EYE QHS 05/01/14 Ipratropium/Albuterol Sulfate [Duoneb] 3 ml INHALATION Q6HWA.RT 05/01/14 Ascorbic Acid [Vitamin C] 1,000 mg PO DAILY@0800 07/28/15 Multivitamin [Daily Multiple Vitamin] 1 each PO DAILY 07/28/15 Aspirin [Aspirin, Baby] 81 mg PO DAILY@0800 10/28/15 Calcium Carbonate/Vitamin D3 [Oyster Shell 500-Vit D3 200 Tb] 1 each PO DAILY 10/28/15 Fexofenadine HCl [Children's Fay Allergy] 180 mg PO DAILY 10/28/15 Fish Oil 1,200 mg PO BID 10/28/15 Olopatadine HCl [Patanol] 1 drop EACH EYE BID 10/28/15 Famotidine 20 mg PO QHS 05/10/18 Furosemide [Lasix] 60 mg PO QODAY 05/10/18 Guaifenesin [Mucinex] 600 mg PO BID 05/10/18 Polyethylene Glycol 3350 [Miralax] 17 gm PO DAILY 05/10/18 traMADol [Ultram] 50 mg PO QHS 05/10/18 Docusate Calcium [Surfak] 240 mg PO BID 05/11/18 Dorzolamide HCl/Pf [Dorzolamide 2% Eye Drop] 1 drop OP BID 05/11/18 Azithromycin [Zithromax] 500 mg PO DAILY #1 tab 05/13/18 Cefdinir 300 mg PO BID #6 cap 05/13/18 Insulin Glargine [Lantus SoloStar Pen] 46 units SUBCUT QHS #1 pen 05/13/18 Prednisone 10 mg PO UD #26 tab 05/13/18 Following Prescrptions Were Given to Patient: Azithromycin [Zithromax] 500 mg PO DAILY #1 tab Cefdinir 300 mg PO BID #6 cap Insulin Glargine [Lantus SoloStar Pen] 46 units SUBCUT QHS #1 pen Prednisone 10 mg PO UD #26 tab Primary Care Physician: Gerri Griffin NP-C [Primary Care Provider] - Please follow up with your Primary Care Physician in: 1-2 weeks Please Follow Up With: Lazaro Almendarez MD When: 2 weeks Please Follow Up With: Gerri Griffin NP-C Disposition: Home with Home Health Minutes spent on discharge:: 35 Patient Condition:: Stable Medical Necessity - Tobacco Use Smoking Status: Former smoker Meaningful Use Info Meaningful Use Diagnoses (Choose all that apply): CHF - CHF VELASQUEZ/ARB ordered at discharge?: No Reason VELASQUEZ/ARB not ordered?: Allergy Documented LVEF (%): 65 <Kenneth Baxter E - Last Filed: 05/14/18 10:44> Discharge Date and Diagnosis - Secondary Discharge Diagnosis Chronic Problems Morbid obesity (Chronic) Dyslipidemia (Chronic) DM type 2 (diabetes mellitus, type 2) (Chronic) Chronic respiratory failure (Chronic) Chronic obstructive lung disease (Chronic) CKD (chronic kidney disease), stage III (Chronic) Hospital Course and Treatment Summary of Care Provided: Hospitalist Note: Discharge summary above reviewed and I concur with above discharge and treatment plan. Patient was admitted for worsening shortness of breath and he was found to have acute on chronic hypoxic and hypercapnic respiratory failure attributed to probable community-acquired pneumonia and acute on chronic diastolic CHF. His ABG revealed pH of 7.37, PCO2 of 76 and PO2 of 61. He was treated with IV Lasix for diuresis for acute on chronic CHF, bronchodilators as well as IV Zithromax and Rocephin for pneumonia. Patient was treated with Ventimask for oxygen and with above-mentioned treatment, shortness of breath improved and he was able to maintain his pulse ox around 90% on 3 L of oxygen although he has been on 4 L at home. 2D echocardiogram revealed ejection fraction 65%, stage I diastolic dysfunction, left atrium which was moderately enlarged. Blood culture showed no growth in 48 hours. Pneumococcal and Legionella antigen were negative. Urine culture revealed mixed growth. Sputum culture revealed pseudomonas aeruginosa. His routine blood work was unremarkable. Patient was discharged home on a stable medical condition, discharged on oxygen, discharged on Zithromax and cefdinir for pneumonia, discharged on tapering course of prednisone,, discharged on Lasix, continued on his other chronic home medications without any changes. Because sputum culture revealed pseudomonas aeruginosa and after revision of his sputum culture, we decided to start him on ciprofloxacin 500 mg p.o. twice daily for 7 days, Héctor Ojeda will call the prescription to the patient's pharmacy, recommended follow-up with PCP in 1 week, follow- up with pulmonology in 2 weeks. - Physical Exam General: Alert, Oriented x3, Cooperative, minimally short of breath. HEENT: Atraumatic, PERRLA, EOMI. Neck: Supple, No JVD, Negative Carotid Bruits, Trachea Midline, Thyroid Normal. Lungs: Decreased breath sounds at the bases, occasional wheezes, rhonchi, minimally short of breath.. Cardiovascular: Regular rate, Regular Rhythm, Normal S1, Normal S2, PMI Normal. Abdomen: Bowel Sounds Present, Soft, Non Tender, Non-Distended, No Hepato-splenomegaly. Extremities: No clubbing, No cyanosis, No edema Skin: No rashes, No breakdown Neurological: Neuro grossly intact. This note was generated with [employer] dictation software. It may contain incorrect words, spelling, and punctuation that were not noted in checking the note before signing. - Physical Exam Vital Signs Temp Pulse Resp BP Pulse Ox 97.5 F L 83 18 149/69 H 88 05/13/18 09:45 05/13/18 10:58 05/13/18 09:45 05/13/18 11:08 05/13/18 10:00 Oxygen Flow Rate (L/min) [ 3 AMBULATION with Oxygen] Oxygen Flow Rate (L/min) 3 Oxygen Delivery Method Simple Mask Weight: 280 lb 6.848 oz Body Mass Index (BMI) 38.6 Intake and Output for Last 24 Hours Intake Total 1882 / 1882 1092 / 1092 901 / 901 Output Total 1150 / 1150 1050 / 1050 1125 / 1125 Balance 732 / 732 42 / 42 -224 / -224 Microbiology Past 72 Hours 05/10/18 21:39 Blood Culture - Preliminary Blood Culture (Wb) - Anticubital Left No growth in 48 hours. Laboratory Tests Past 24 Hrs WBC 7.9 RBC 4.47 L Hgb 12.5 L Hct 40.7 POC Glucose POC Glucose 382 H 196 H 142 H POC Glucose 284 H Meaningful Use Info Meaningful Use Diagnoses (Choose all that apply): CHF - CHF VELASQUEZ/ARB ordered at discharge?: No Reason VELASQUEZ/ARB not ordered?: Allergy Documented LVEF (%): 65 Code Visit Inpatient E AND M: [id number] Disch Hosp 05/13/18 1538 <Electronically signed by Héctor ORTIZ> Date Héctor ORTIZ 05/14/18 1045<Electronically signed by Kenneth Baxter MD> Cosigner Signature (if applicable): Date Kenneth Baxter MD CC: WAREHOUSE SUPERVISOR 3RD SHIFT-C Gerri Griffin; ANGEL Ojeda; Lazaro Almendarez MD; Kenneth Baxter Signed DISCHARGE INSTRUCTION Observed: 05/13/2018 Status: F Source: [facility] 11:38 AM [facility] REPOSITORY [facility] Medical Records Department [address] [place] [address] Instructions for Home/Discharge Instructions 05/13/18 1137 MR#: [id number] Acct: [id number] Name: LIZZY SIDHU Rep #: [id number] : 1940 78 From: Héctor ORTIZ PCP: Gerri Griffin, WAREHOUSE SUPERVISOR 3RD SHIFTAprylC Status: ADM IN - Discharge Diagnoses Current Active Problems: Current Active and Chronic Problems Bilateral pneumonia (Acute) You will use the following diet at home:: Calorie/Carbohydrate Controlled (specify 1200, 1400, etc) - 1800 alise / day, Cardiac Your food should be the consistency of: Regular Your liquids should be the consistency of: Regular/Thin Discharge Activity: Return to Normal Activity Allergies/Adverse Reactions: Allergies codeine Adverse Reaction (Verified 05/10/18 21:09) confused lisinopril Adverse Reaction (Verified 05/10/18 21:09) Other BETA DEAN Allergy (Uncoded 05/10/18 21:09) Hives PAIN MEDICATION Allergy (Uncoded 05/10/18 21:09) Itching Medications to take at Discharge Budesonide/Formoterol 160/4.5 [Symbicort 160/4.5 Mcg Inhaler (SP)] 2 puff INHALATION BID 09/01/13 Furosemide [Lasix] 80 mg PO QODAY 09/01/13 Gabapentin [Neurontin] 800 mg PO BID 09/01/13 NIFEdipine [Procardia XL] 90 mg PO DAILY 09/01/13 Tiotropium [place] [Spiriva 18 MCG] 1 puff INHALATION DAILY 09/01/13 Albuterol Inhaler [Ventolin Hfa] 1 - 2 puff INHALATION Q6H PRN PRN 05/01/14 Bimatoprost [Lumigan Opthalmic] 1 drop EACH EYE QHS 05/01/14 Ipratropium/Albuterol Sulfate [Duoneb] 3 ml INHALATION Q6HWA.RT 05/01/14 Ascorbic Acid [Vitamin C] 1,000 mg PO DAILY@0800 07/28/15 Multivitamin [Daily Multiple Vitamin] 1 each PO DAILY 07/28/15 Aspirin [Aspirin, Baby] 81 mg PO DAILY@0800 10/28/15 Calcium Carbonate/Vitamin D3 [Oyster Shell 500-Vit D3 200 Tb] 1 each PO DAILY 10/28/15 Fexofenadine HCl [Children's Fay Allergy] 180 mg PO DAILY 10/28/15 Fish Oil 1,200 mg PO BID 10/28/15 Olopatadine HCl [Patanol] 1 drop EACH EYE BID 10/28/15 Famotidine 20 mg PO QHS 05/10/18 Furosemide [Lasix] 60 mg PO QODAY 05/10/18 Guaifenesin [Mucinex] 600 mg PO BID 05/10/18 Polyethylene Glycol 3350 [Miralax] 17 gm PO DAILY 05/10/18 traMADol [Ultram] 50 mg PO QHS 05/10/18 Docusate Calcium [Surfak] 240 mg PO BID 05/11/18 Dorzolamide HCl/Pf [Dorzolamide 2% Eye Drop] 1 drop OP BID 05/11/18 Azithromycin [Zithromax] 500 mg PO DAILY #1 tab 05/13/18 Cefdinir 300 mg PO BID #6 cap 05/13/18 Insulin Glargine [Lantus SoloStar Pen] 46 units SUBCUT QHS #1 pen 05/13/18 Prednisone 10 mg PO UD #26 tab 05/13/18 The following prescriptions were given: Azithromycin [Zithromax] 500 mg PO DAILY #1 tab Cefdinir 300 mg PO BID #6 cap Insulin Glargine [Lantus SoloStar Pen] 46 units SUBCUT QHS #1 pen Prednisone 10 mg PO UD #26 tab Primary Care Physician: Gerri Griffin NP-C [Primary Care Provider] - Please follow up with your Primary Care Physician in: 1-2 weeks Test Results: Test results from this visit will be discussed in further detail at your follow-up appointment, if applicable. Please Follow Up With: Lazaro Almendarez MD - WAREHOUSE SUPERVISOR 3RD SHIFT OK When: 2 weeks Proposed Discharge Date: 05/13/18 05/13/18 1138 <Electronically signed by Héctor ORTIZ> Date Héctor ORTIZ CC: WAREHOUSE SUPERVISOR 3RD SHIFT-C Gerri Griffin; Lazaro Almendarez MD BEDSIDE GLUCOSE Collected: 05/13/2018 Status: F Source: [facility] 11:10 AM [facility] REPOSITORY TYPE CODE TESTS RESULT OUT OF REFERENCE UNITS RANGE LAB L501.080 70-110 mg/dL High BEDSIDE GLU 382 Result Comment: MANAGEMENT OF PATIENT CARE PER NURSING PROTOCOL Performed By: #### L501.080 #### [facility] Point of Care [address] [place] [address] BEDSIDE GLUCOSE Collected: 05/13/2018 Status: F Source: [facility] 6:46 AM [facility] REPOSITORY TYPE CODE TESTS RESULT OUT OF REFERENCE UNITS RANGE LAB L501.080 70-110 mg/dL High BEDSIDE GLU 196 Result Comment: MANAGEMENT OF PATIENT CARE PER NURSING PROTOCOL Performed By: #### L501.080 #### [facility] Point of Care [address] [place] [address] BASIC METABOLIC Collected: 05/13/2018 Status: F Source: [facility] PROFILE (BMP) 6:25 AM [facility] REPOSITORY TYPE CODE TESTS RESULT OUT OF RANGE REFERENCE UNITS LAB L501.0100 74-106 mg/dL High GLU 177 Result Comment: Fasting Glucose result greater than or equal to 126 mg/dL suggests DIABETES MELLITUS per A.D.A. criteria. Please note revised GLUCOSE reference range effective 2017. LAB L501.1000 7-18 mg/dL High BUN 31 LAB L501.1100 0.70-1.30 mg/dL Normal CREAT,SERUM 1.27 Result Comment: The validity of the calculated GFR AND GFRAA in patients over 70 years has not been determined. Clinical correlation is essential. LAB L501.1110 >60 mL/min Low EST GFR 58 Result Comment: Non- GFR Calc LAB L501.1115 >60 mL/min Normal EST GFR - AA 71 Result Comment: GFR Calc LAB L501.1255 ml/min Normal Estimated CRCL 53.46 LAB L501.1300 10-20 RATIO High BUN/CRE 24.4 LAB L501.2200 8.5-10 mg/dL Normal .1 CA 9.5 LAB L501.5300 136-14 mmol/L Normal 5 NA 138 LAB L501.5600 3.5-5. mmol/L Normal 1 K 4.1 LAB L501.5900 98-107 mmol/L Low CL 89 LAB L501.6100 21.0-3 mmol/L High 2.0 CO2 42.0 LAB L501.6200 5-15 Normal GAP 7 Performed By: #### L500.2500 #### [facility] [address] [facility] [facility] [place], [place], [address] CBC-COMPLETE BLOOD CNT Collected: 05/13/2018 Status: F Source: [facility] NO DIFF 6:25 AM [facility] REPOSITORY TYPE CODE TESTS RESULT OUT OF RANGE REFERENCE UNITS LAB L100.1000 4.4-11.0 K/mm3 Normal WBC 7.9 LAB L100.1200 4.6-6.2 M/mm3 Low RBC 4.47 LAB L100.1300 13.0-16.5 g/dl Low HGB 12.5 LAB L100.1400 40-54 % Normal HCT 40.7 LAB L100.1500 80-94 fL Normal MCV 91.1 LAB L100.1600 27.0-32.0 pg Normal MCH 28.0 LAB L100.1700 32-36 g/gl Low MCHC 30.7 LAB L100.1810 11.6-14.6 % Normal RDW CV 13.0 LAB L100.1820 35.1-43.9 fl Normal RDW SD 42.5 LAB L100.1900 150-450 K/mm3 Normal PLT 274 LAB L100.2000 6.2-12.0 fl Normal MPV 10.4 Performed By: #### L100.0500 #### [facility] [address] [place], [place], [id number] BEDSIDE GLUCOSE Collected: 05/13/2018 Status: F Source: [facility] 2:58 AM [facility] REPOSITORY TYPE CODE TESTS RESULT OUT OF REFERENCE UNITS RANGE LAB L501.080 70-110 mg/dL High BEDSIDE GLU 142 Result Comment: MANAGEMENT OF PATIENT CARE PER NURSING PROTOCOL Performed By: #### L501.080 #### [facility] Point of Care [address] [place] [address] BEDSIDE GLUCOSE Collected: 05/12/2018 Status: F Source: [facility] 11:16 PM [facility] REPOSITORY TYPE CODE TESTS RESULT OUT OF REFERENCE UNITS RANGE LAB L501.080 70-110 mg/dL High BEDSIDE GLU 284 Result Comment: MANAGEMENT OF PATIENT CARE PER NURSING PROTOCOL Performed By: #### L501.080 #### [facility] Point of Care [address] [place] [address] BEDSIDE GLUCOSE Collected: 05/12/2018 Status: F Source: [facility] 5:04 PM [facility] REPOSITORY TYPE CODE TESTS RESULT OUT OF REFERENCE UNITS RANGE LAB L501.080 70-110 mg/dL High BEDSIDE GLU 330 Result Comment: MANAGEMENT OF PATIENT CARE PER NURSING PROTOCOL Performed By: #### L501.080 #### [facility] Point of Care [address] [place] [address] ECHOCARDIOGRAM COMPLETE Observed: 05/12/2018 Status: F Source: [facility] 3:25 PM [facility] REPOSITORY [facility] Cardiovascular Services [address] [place] [address] Echo Complete 05/12/18 0926 MR#: [id number] Acct: [id number] Name: LIZZY SIDHU Rep #: [id number] : 1940 78 From: Nick Alexander MD Attending Dr: Kenneth Baxter Status: ADM IN Ordering Dr: Rosamaria Barker Date: 05/11/18 Location: PCU Sex: M C Admitted: 05/10/18 Reason For Study: Dyspnea/ SOB Procedure This was a 2D Doppler, Color Flow transthoracic echocardiogram. The study was technically difficult. Exam performed portable in patient room. Left Ventricle Normal size and thickness. The estimated ejection fraction is 65 %. Stage 1 diastolic dysfunction. No regional wall motion abnormalities noted. Right Ventricle Normal size and thickness. Normal systolic function. Atria The left atrium is moderately enlarged. The right atrium is moderately enlarged. Normal atrial septum. Mitral Valve The mitral valve is structurally normal. No prolapse or stenosis seen. Tricuspid Valve Normal tricuspid valve. Unable to estimate RV systolic pressure due to inadequate jet, pulmonary artery pressure probably normal. Aortic Valve Normal aortic valve. Trisinus/trileaflet aortic valve. Pulmonic Valve Normal pulmonic valve. Great Vessels Normal aortic root. Normal arch. Normal inferior vena cava. Inferior vena cava collapse with sniff. Pericardium/Pleural No pericardial effusion. MMode/2D Measurements AND Calculations LVIDd: 5.4 cm IVSd: 1.0 cm Ao root diam: 3.2 cm LVIDs: 3.8 cm LVPWd: 1.4 cm FS: 29.9 % LAV(MOD-bp): 79.7 ml LVAd ap4: 34.9 cm2 SV(MOD-sp4): 83.4 ml LAV(MOD-bp) Indexed: 32.2 ml/m2 EDV(MOD-sp4): 127.4 ml LAV(MOD-sp2): 70.4 ml EDV(sp4-el): 122.9 ml LAV(MOD-sp4): 76.3 ml LVAs ap4: 18.0 cm2 ESV(MOD-sp4): 44.0 ml ESV(sp4-el): 41.7 ml EF(MOD-sp4): 65.5 % EF(sp4-el): 66.0 % SV(sp4-el): 81.2 ml LA A4 area: 24.6 cm2 RA A4 area: 25.7 cm2 Time Measurements MV dec time: 0.17 sec Doppler Measurements AND Calculations MV E max brendan: 76.8 cm/sec Lat Peak E' Brendan: 8.4 cm/sec Med Peak E' Brendan: 6.3 cm/sec MV A max brendan: 112.8 cm/sec E/E' lat: 9.2 E/E' med: 12.1 MV E/A: 0.68 MV V2 max: 148.3 cm/sec MV P1/2t max brendan: 99.2 cm/sec Ao V2 max: 183.0 cm/sec MV max P.8 mmHg MV P1/2t: 69.5 msec Ao max P.4 mmHg MV V2 mean: 85.9 cm/sec MV dec slope: 418.1 cm/sec2 Ao V2 mean: 99.9 cm/sec MV mean P.4 mmHg MVA(P1/2t): 3.2 cm2 Ao mean P.9 mmHg MV V2 VTI: 36.4 cm Ao V2 VTI: 30.5 cm LV V1 max: 139.9 cm/sec PA V2 max: 129.0 cm/sec LV V1 max P.8 mmHg LV V1 mean P.9 mmHg LV V1 mean: 75.7 cm/sec LV V1 VTI: 29.4 cm Interpretation Summary The estimated ejection fraction is 65 %. Stage 1 diastolic dysfunction. The left atrium is moderately enlarged. The right atrium is moderately enlarged. Unable to estimate RV systolic pressure due to inadequate jet, pulmonary artery pressure probably normal. Comapred to echo report dated 08/18/2012, LV function has improved from 55% to 65%. Ordering Physician: ESTEBAN Gonzalez Performed By: Simone Triana RCS 05/12/18 1524 Date Nick Alexander MD CC: WAREHOUSE SUPERVISOR 3RD SHIFT-C Rosamaria Barker; WAREHOUSE SUPERVISOR 3RD SHIFT-C Gerri Baxter Date Dictated: 05/12/18925 Date Transcribed: 05/12/18 152 Printing Sign Machine Operator: Signed BEDSIDE GLUCOSE Collected: 05/12/2018 Status: F Source: [facility] 11:20 AM [facility] REPOSITORY TYPE CODE TESTS RESULT OUT OF REFERENCE UNITS RANGE LAB L501.080 70-110 mg/dL High BEDSIDE GLU 329 Result Comment: MANAGEMENT OF PATIENT CARE PER NURSING PROTOCOL Performed By: #### L501.080 #### [facility] Point of Care [address] [place], [place] [address] BEDSIDE GLUCOSE Collected: 05/12/2018 Status: F Source: [place] 6:51 AM [facility] REPOSITORY TYPE CODE TESTS RESULT OUT OF REFERENCE UNITS RANGE LAB L501.080 70-110 mg/dL High BEDSIDE GLU 247 Result Comment: MANAGEMENT OF PATIENT CARE PER NURSING PROTOCOL Performed By: #### L501.080 #### [facility] Point of Care [address] [place] [address] BASIC METABOLIC Collected: 05/12/2018 Status: F Source: [facility] PROFILE (BMP) 6:00 AM [facility] REPOSITORY TYPE CODE TESTS RESULT OUT OF RANGE REFERENCE UNITS LAB L501.0100 74-106 mg/dL High GLU 239 Result Comment: Glucose result greater than or equal to 200 mg/dL suggests DIABETES MELLITUS per A.D.A. criteria. Please note revised GLUCOSE reference range effective 2017. LAB L501.1000 7-18 mg/dL High BUN 22 LAB L501.1100 0.70-1.30 mg/dL Normal CREAT,SERUM 1.27 Result Comment: The validity of the calculated GFR AND GFRAA in patients over 70 years has not been determined. Clinical correlation is essential. LAB L501.1110 >60 mL/min Low EST GFR 58 Result Comment: Non- GFR Calc LAB L501.1115 >60 mL/min Normal EST GFR - AA 71 Result Comment: GFR Calc LAB L501.1255 ml/min Normal Estimated CRCL 53.46 LAB L501.1300 10-20 RATIO Normal BUN/CRE 17.3 LAB L501.2200 8.5-10 mg/dL Normal .1 CA 9.7 LAB L501.5300 136-14 mmol/L Normal 5 NA 137 LAB L501.5600 3.5-5. mmol/L Normal 1 K 3.9 LAB L501.5900 98-107 mmol/L Low CL 88 LAB L501.6100 21.0-3 mmol/L High 2.0 CO2 40.0 LAB L501.6200 5-15 Normal GAP 9 Performed By: #### L500.2500 #### [facility] [address] [place], [address] CONSULTATION Observed: 05/12/2018 Status: F Source: BRENNA 5:50 AM [facility] REPOSITORY [facility] Medical Records Department [address] [place] [address] Consultation 05/11/18 1421 MR#: [id number] Acct: [id number] Name: LIZZY SIDHU Rep #: [id number] : 1940 78 From: Lazaro Almendarez MD PCP: Gerri Griffin, WAREHOUSE SUPERVISOR 3RD SHIFT-C Status: ADM IN Y Location: [place] [id number] Problem List (1) Bilateral pneumonia Status: Acute (2) Morbid obesity Status: Chronic (3) Dyslipidemia Status: Chronic (4) DM type 2 (diabetes mellitus, type 2) Status: Chronic (5) Chronic respiratory failure Status: Chronic (6) Chronic obstructive lung disease Status: Chronic (7) CKD (chronic kidney disease), stage III Status: Chronic Reason for Consult Date of Consultation: 05/11/18 Reason for Consultation: COPD exacerbation History of Present Illness: The patient is a 78 year old M, with past medical history listed below, who presented to [facility] on 05/10/2018 secondary to shortness of breath and change in mental status. Patient had reportedly had progressive shortness of breath over the previous week and had had episodes of reported delirium. Patient had increased his nebulizer secondary to shortness of breath. Patient reportedly had been vomiting for 2 days prior to presentation. Patient states he was treated with antibiotics for approximately 1 month. Patient did have a cough productive of green sputum and subjective fever. Patient is normally on 3 L nasal cannula, but this had been increased to 4 L nasal cannula secondary to dyspnea. On arrival in the emergency room, patient was noted to be 93% on 4 L nasal cannula. Patient was noted to have rhonchi on exam. Chest x-ray was suggestive of pneumonia, so patient was admitted to the PCU. Since being on the PCU, patient reports subjective improvement in overall condition. Patient states he feels comfortable at rest, but is still having some dyspnea on exertion. Patient is having a cough productive of green sputum. No fevers have been documented. Patient's is at the bedside and states that he is breathing much better and thinking right. Patient is currently on a Ventimask to maintain saturations. Patient reportedly is seen at the [facility] by pulmonary. Patient has been seen in the last 6 months and last pulmonary function tests were reportedly worsening. Family is unaware of any further results. Patient has never been told of an abnormal CT scan. Patient does have a long smoking history in the past, but recently quit. Patient is compliant with his 3 L nasal cannula, but does not typically check his saturations at home. Patient denies a diagnosis of YOGI in the past. Patient reportedly does snore. Review of systems otherwise negative x10 systems. Past Medical History Past Medical History (Chronic Problems): Chronic Problems Morbid obesity (Chronic) Dyslipidemia (Chronic) DM type 2 (diabetes mellitus, type 2) (Chronic) Chronic respiratory failure (Chronic) Chronic obstructive lung disease (Chronic) CKD (chronic kidney disease), stage III (Chronic) Allergies codeine Adverse Reaction (Verified 05/10/18 21:09) confused lisinopril Adverse Reaction (Verified 05/10/18 21:09) Other BETA DEAN Allergy (Uncoded 05/10/18 21:09) Hives PAIN MEDICATION Allergy (Uncoded 05/10/18 21:09) Itching Home Medications: Ambulatory Orders Medication Instructions Recorded Budesonide/Formoterol 160/4.5 2 puff INHALATION BID 09/01/13 [Symbicort 160/4.5 Mcg Inhaler (SP)] Furosemide [Lasix] 80 mg PO QODAY 09/01/13 Surgical History: total hip arthroplasty, - - Prostate surgery Psychiatric History: No pertinent psych hx Lives: Spouse/ Significant Other Smoking Status: Former smoker - *Family History Maternal History Items: - - Patient does not know. Paternal History Items: Diabetes Review of Systems Comment: See HPI Patient Problems: Active and Suspected Problems Bilateral pneumonia (Acute) Objective: CT scan of the chest was personally reviewed. I agree with formal interpretation. This appears to be infectious with some groundglass opacities and some basilar bronchiectasis. - Physical Exam General: Alert, Oriented x3, Cooperative, - - Mild conversational dyspnea. Obese. Appears stated age. HEENT: Atraumatic, PERRLA, EOMI, Normocephalic, - - No scleral icterus or injection noted. Oral: Moist Mucosa, No Gingival or Mucosal Lesions/ Ulcerations Neck: Supple, No JVD, No Nodes, Trachea Midline Lungs: No wheeze, No rales, Diminished, Rhonchi - Improved with coughing, - - Symmetric expansion. No dullness to percussion. Cardiovascular: Regular rate, Regular Rhythm, Normal S1, Normal S2, No murmurs, No rub noted, No Gallop Abdomen: Bowel Sounds Present, Soft, Non Tender, Non-Distended, Obese Extremities: No cyanosis, Clubbing, Edema - 2+ lower extremity Skin: No rashes, No breakdown Musculoskeletal: No Tenderness to Palpation of Joints or Extremities Lymphatic: No Cervical, Supraclavicular, or Inguinal Adenopathy Neurological: Cranial nerves II-XII grossly intact, Neuro grossly intact, Motor Exam 5/5 strength throughout Psych/Mental Status: Alert and oriented to time, place, person, mood and affect Vital Signs Temp Pulse Resp BP Pulse Ox 37.1 C 64 16 156/58 H 94 05/11/18 10:01 05/11/18 11:46 05/11/18 11:46 05/11/18 10:01 05/11/18 11:46 Oxygen Flow Rate (L/min) 4 Oxygen Delivery Method Venturi Mask Weight: 129.2 kg Body Mass Index (BMI) 38.6 Intake and Output for Last 24 Hours Intake Total 1882 / 1882 Output Total 250 / 250 Balance 1632 / 1632 Microbiology Past 72 Hours 05/10/18 22:50 Streptococcus pneumoniae Antigen (M - Final Urine, Clean Catch 05/10/18 22:50 Legionella Antigen - Final Urine, Clean Catch Laboratory Tests Past 24 Hrs WBC 9.0 RBC 4.27 L Hgb 11.8 L Hct 39.5 L MCV 92.5 POC Glucose POC Glucose 252 H 183 H Clinical Impression(s) from Imaging Studies Chest X-Ray 05/10/18 22:10 IMPRESSION: Limited study with partial visualization of a right middle lobe infiltrate. Cannot exclude left lingular infiltrate. Findings are similar to the prior study. This may represent chronic atelectasis and/or infiltrate versus recurrence. Recommend consideration for follow up CT scan of the chest for clarification when appropriate. Electronically Signed: Jennifer Ott MD at 22:37 EDT Tel , Service support , Chest CT 05/11/18 00:33 IMPRESSION: Diffuse bilateral peribronchial nodular groundglass infiltration with bronchiolar wall thickening, with patchy consolidation versus atelectasis in the lingula, and with reactive mediastinal and hilar lymphadenopathy. Electronically Signed: Luis Alfredo De Leon MD at 3:45 EDT Tel , Service support , Assessment/Plan All Active Problems Bilateral pneumonia (Acute) Shortness of breath (Acute) RECOMMENDATIONS: 1. Continue antibiotics, bronchodilators 2. Transition from Pulmicort to systemic steroids 3. Wean oxygen as tolerated 4. Monitor blood sugars closely and treat as necessary 5. Obtain old records from [facility] 6. Await sputum culture IMPRESSIONS: 1. Chronic combined respiratory failure with probable pneumonia Patient is slightly up on oxygen demands. ABG shows adequate oxygenation and ventilation. CT scan shows a probable right middle lobe infiltrate with possible vascular congestion. Patient may have an element of cor pulmonale, but BNP is not very impressive. Patient has an echocardiogram currently pending for quantification and clarification of heart function. Would continue with IV antibiotics. Transition to systemic steroids, but will need to watch blood sugars closely. Patient has been treated with 2 separate rounds of antibiotics as an outpatient without improvement. Possibility of MDRO, but will await sputum culture prior to making any changes in antibiotics 2. Probable acute on chronic diastolic CHF Patient's rate is currently controlled, but initiated on Lasix therapy. This is likely appropriate. We will continue to monitor electrolytes and replete as necessary. 2D echocardiogram is already been ordered. 3. Metabolic encephalopathy Clinical suspicion for CO2 retention versus hypoxemia as the etiology. Patient appears to be improving at this time. We will continue with delirium protocol, especially overnight. Recommend avoiding benzodiazepines of possible 4. Morbid obesity/diabetes mellitus type 2/CKD stage III/dyslipidemia/advanced age Complicates care, management, recovery and prognosis. Will need to watch blood sugars closely given systemic steroids. Code Visit Inpatient E AND M: [id number] Init Hosp L3 05/12/18 0550 <Electronically signed by Lazaro Almendarez MD> Date Lazaro Almendarez MD Cosigner Signature (if applicable): Date CC: ESTEBAN Griffin; Lazaro Almendarez MD Signed BEDSIDE GLUCOSE Collected: 05/11/2018 Status: F Source: BRENNA 10:48 PM [facility] REPOSITORY TYPE CODE TESTS RESULT OUT OF REFERENCE UNITS RANGE LAB L501.080 70-110 mg/dL High BEDSIDE GLU 191 Result Comment: MANAGEMENT OF PATIENT CARE PER NURSING PROTOCOL Performed By: #### L501.080 #### [facility] Point of Care [address] [place] [address] BEDSIDE GLUCOSE Collected: 05/11/2018 Status: F Source: BRENNA 4:31 PM [facility] REPOSITORY TYPE CODE TESTS RESULT OUT OF REFERENCE UNITS RANGE LAB L501.080 70-110 mg/dL High BEDSIDE GLU 174 Result Comment: MANAGEMENT OF PATIENT CARE PER NURSING PROTOCOL Performed By: #### L501.080 #### [facility] Point of Care [address] [place] [address] BLOOD GASES BY CPS Collected: 05/11/2018 Status: F Source: BRENNA 11:29 AM [facility] REPOSITORY TYPE CODE TESTS RESULT OUT OF RANGE REFERENCE UNITS LAB L9000.9990 Normal BLD GAS TYPE ART LAB L9001.1000 Normal SITE R Radial LAB L9001.1050 O2 Normal Delivery Dev Nasal Can LAB L9001.1055 /min Normal LPM 4.0 LAB L9001.1104 Normal Results To HOSP MD LAB L9001.1105 Normal Time Given 1127 LAB L9001.1110 7.35-7.45 pH Normal - I-STAT 7.37 LAB L9001.1210 35-45 mmHg High alert pCO2 - ISTAT 76.1 LAB L9001.1310 75-100 mmHG Low PO2 I-STAT 61 LAB L9001.2300 22-26 mmol/L High HCO3 ISTAT 44.3 LAB L9001.2400 -2 to +2 mmol/L High BE ISTAT 19 LAB L9001.2415 mmol/L Normal TOTAL CO2 47 ISTAT LAB L9001.2425 95-99 % Low SO2 ISTAT 89 Performed By: #### L9000.0800 #### [facility] Point of Care [address] [place] [address] BEDSIDE GLUCOSE Collected: 05/11/2018 Status: F Source: BRENNA 10:59 AM [facility] REPOSITORY TYPE CODE TESTS RESULT OUT OF REFERENCE UNITS RANGE LAB L501.080 70-110 mg/dL High BEDSIDE GLU 252 Result Comment: MANAGEMENT OF PATIENT CARE PER NURSING PROTOCOL Performed By: #### L501.080 #### [facility] Point of Care [address] [place] [address] Observed: 05/11/2018 Status: F Source: QUECHEE CULTURE, SPUTUM 10:55 AM [facility] REPOSITORY Gram Stain Gram Stain 2+ White Blood Cells 1+ Epithelial cells 2+ Gram positive cocci in clusters Resp. Culture ORGANISM 1: Pseudomonas aeroginosa Amount Growth 2+ Pseudomonas aeroginosa: REACTION Cefepime $ <=1 S Ceftazidime *NF <=1 S Ciprofloxacin $ 1 S Gentamicin $ <=1 S Imipenem *NF 1 S Levofloxacin $ 4 I Piperacillin/Tazobactam $$ <=4 S Tobramycin $ <=1 S (NF) indicates non-formulary drug at [facility]. Approval by Infectious Disease Specialist required before non-formulary drugs may be ordered and/or dispensed. Performed By: #### M100.0800 #### [facility] [address] [facility] [place], [address] 12 LEAD ELECTROCARDIOGRAM Observed: 05/11/2018 Status: F Source: QUECHEE 9:55 AM [facility] REPOSITORY [facility] Cardiovascular Services [address] [place] [address] 12 Lead EKG 05/10/18 2141 MR#: [id number] Acct: [id number] Name: LIZZY SIDHU Rep #: [id number] : 1940 78 From: Alhaji Castro MD Attending Dr: Kenneth Baxter Status: ADM IN Ordering Dr: Vanessa Cash MD Date: 05/10/18 Location: [facility] Sex: M C Admitted: 05/10/18 Test Reason : Blood Pressure : / mmHG Vent. Rate : 066 BPM Atrial Rate : 066 BPM P-R Int : 162 ms QRS Dur : 098 ms QT Int : 426 ms P-R-T Axes : 013 093 098 degrees QTc Int : 446 ms Normal sinus rhythm Rightward axis Low voltage QRS Nonspecific T wave abnormality Poor R wave progression Abnormal ECG Confirmed by MATTHEW MARIA, ALHAJI ([id number]), supervising film or videotape editor OSMAR PACHECO ([id number]) on 05/11/2018 9:55:14 AM Referred By: Gerri Griffin Confirmed By:ALHAJI CASTRO MD 05/11/18 0963 Date Alhaji Castro MD CC: WAREHOUSE SUPERVISOR 3RD SHIFT-C Gerri Griffin; Kenneth Baxter; Vanessa Cash MD Signed BEDSIDE GLUCOSE Collected: 05/11/2018 Status: F Source: BRENNA 6:46 AM [facility] REPOSITORY TYPE CODE TESTS RESULT OUT OF REFERENCE UNITS RANGE LAB L501.080 70-110 mg/dL High BEDSIDE GLU 183 Result Comment: MANAGEMENT OF PATIENT CARE PER NURSING PROTOCOL Performed By: #### L501.080 #### [facility] Point of Care [address] [place], [place] [address] BASIC METABOLIC Collected: 05/11/2018 Status: F Source: BRENNA PROFILE (BMP) 5:48 AM [facility] REPOSITORY TYPE CODE TESTS RESULT OUT OF RANGE REFERENCE UNITS LAB L501.0100 74-106 mg/dL High GLU 212 Result Comment: Glucose result greater than or equal to 200 mg/dL suggests DIABETES MELLITUS per A.D.A. criteria. Please note revised GLUCOSE reference range effective 2017. LAB L501.1000 7-18 mg/dL High BUN 21 LAB L501.1100 0.70-1.30 mg/dL Normal CREAT,SERUM 1.19 Result Comment: The validity of the calculated GFR AND GFRAA in patients over 70 years has not been determined. Clinical correlation is essential. LAB L501.1110 >60 mL/min Normal EST GFR 63 Result Comment: Non- GFR Calc LAB L501.1115 >60 mL/min Normal EST GFR - AA 76 Result Comment: GFR Calc LAB L501.1255 ml/min Normal Estimated CRCL 57.06 LAB L501.1300 10-20 RATIO Normal BUN/CRE 17.6 LAB L501.2200 8.5-10 mg/dL Normal .1 CA 9.3 LAB L501.5300 136-14 mmol/L Normal 5 NA 138 LAB L501.5600 3.5-5. mmol/L Normal 1 K 3.8 LAB L501.5900 98-107 mmol/L Low CL 90 LAB L501.6100 21.0-3 mmol/L High 2.0 CO2 41.0 LAB L501.6200 5-15 Normal GAP 7 Performed By: #### L500.2500 #### [facility] [address] [place], [address] MYCOPLASMA PNEU IGG / Collected: 05/11/2018 Status: F Source: QU[place]E IGM 5:48 AM [facility] REPOSITORY TYPE CODE TESTS RESULT OUT OF REFERENCE UNITS RANGE LAB L7000.2525 0-99 U/mL High MYCO IgG 328 [id number] Result Comment: Negative: <100 Indeterminate: 100 - 320 Positive: >320 The reference interval established is intended as a baseline only. Values >100 may indicate a recent infection with Mycoplasma pneumoniae and need to be confirmed either by a positive IgM result and/or an additional specimen drawn 2-4 weeks later showing a significant increase in antibody levels. LAB L7000.2600 0-769 U/mL Normal MYCOPLASMA IgM < 770 Result Comment: Negative <770 Clinically significant amount of M. pneumoniae antibody not detected. Low Positive 770 - 950 M. pneumoniae specific IgM presumptively detected. It is recommended that another sample be collected 1-2 weeks later to assure reactivity. Positive >950 Highly significant amount of M. pneumoniae specific IgM antibody detected. Performed at: [facility] [id number] Graduate Teacher Education: Ulices Figueroa PhD, Phone: [phone] Performed By: #### L7000.2400 #### [facility] (refer to report for specific site) refer to report for address and phone number HISTORY AND PHYSICAL Observed: 05/11/2018 Status: F Source: QUECHEE EXAM 2:07 AM [facility] REPOSITORY [facility] Medical Records Department [address] [place] [address] History and Physical 05/10/18 2322 MR#: [id number] Acct: [id number] Name: LIZZY SIDHU Rep #: [id number] : 1940 78 From: Catalino Calle MD PCP: Gerri Griffin WAREHOUSE SUPERVISOR 3RD SHIFTAprylC Status: ADM IN Y Location: [address] Problem List (1) Bilateral pneumonia Status: Acute (2) DM type 2 (diabetes mellitus, type 2) Status: Chronic (3) Chronic obstructive lung disease Status: Chronic (4) CKD (chronic kidney disease), stage III Status: Chronic History of Present Illness Date of Admission: 05/10/18 Chief Complaint: shortness of breath The patient is a 78 year old M with a significant history of type 2 diabetes; COPD; CKD stage III who presents with persistent increased shortness of breath above his baseline for about the one month. He reports a productive cough with greenish sputum. Associated with symptoms is delirium, weakness and visual hallucinations. Patient has received 2 courses of antibiotics without improvement. Outpatient antibiotics was Levaquin. Although patient uses 3 L [id number] oxygen he has had to increase his oxygen requirement to 4 L. Because of the persistence of his symptoms his PCP recommended that he come to the emergency department and he was subsequently admitted. Past Medical History Past Medical History (Chronic Problems): Chronic Problems Morbid obesity (Chronic) Dyslipidemia (Chronic) DM type 2 (diabetes mellitus, type 2) (Chronic) Chronic respiratory failure (Chronic) Chronic obstructive lung disease (Chronic) CKD (chronic kidney disease), stage III (Chronic) Allergies codeine Adverse Reaction (Verified 05/10/18 21:09) confused lisinopril Adverse Reaction (Verified 05/10/18 21:09) Other BETA DEAN Allergy (Uncoded 05/10/18 21:09) Hives PAIN MEDICATION Allergy (Uncoded 05/10/18 21:09) Itching Home Medications: Ambulatory Orders Medication Instructions Recorded Budesonide/Formoterol 160/4.5 2 puff INHALATION BID 09/01/13 [Symbicort 160/4.5 Mcg Inhaler Surgical History: total hip arthroplasty, - - Prostate surgery Psychiatric History: No pertinent psych hx Lives: Spouse/ Significant Other Smoking Status: Former smoker - *Family History Maternal History Items: - - Patient does not know. Paternal History Items: Diabetes Review of Systems Constitutional: Reports: Anorexia, Weight Change - Reports intentional weight loss of about 60 pounds. HEENT: Denies: Head Aches, Sinus Congestion, Sinus Drainage Cardiovascular: Denies: Chest Pain, Palpitations Respiratory: Reports: Cough, Shortness of Breath, Sputum production Gastrointestinal: Denies: Abdominal Pain, Nausea, Vomiting Genitourinary: Denies: Dysuria Musculoskeletal: Denies: Muscle pain, Neck Pain Skin: Denies: Rash, Wounds Neurological: Denies: Numbness, Tingling, Focal weakness Psychiatric: Denies: Anxiety, Depression, Homicidal Ideations, Suicidal Ideations Hematologic/ Lymphatic: Denies: Easy Bruising, Easy Bleeding VTE Information - Inpt Only VTE Present on Admission: No VTE Mechan Device Prophylaxis: None VTE Pharm Prophylaxis ordered?: Yes Patient Problems: Active and Suspected Problems Bilateral pneumonia (Acute) - Physical Exam General: Alert, Oriented x3, Cooperative HEENT: Atraumatic, PERRLA, EOMI, Normocephalic Neck: Supple, No JVD, Negative Carotid Bruits Lungs: Diminished, Tachypneic Cardiovascular: Regular rate, No murmurs Abdomen: Bowel Sounds Present, Soft, Non Tender Extremities: No edema, Capillary Refill Less than 3 Seconds Skin: No rashes, No breakdown Musculoskeletal: No Tenderness to Palpation of Joints or Extremities Neurological: Cranial nerves II-XII grossly intact Psych/Mental Status: Normal Affect, Appropriate Vital Signs Temp Pulse Resp BP Pulse Ox 98.6 F 73 15 138/114 H 94 05/10/18 21:42 05/10/18 23:00 05/10/18 23:00 05/10/18 23:00 05/10/18 23:00 Oxygen Flow Rate (L/min) 4 Oxygen Delivery Method Nasal Cannula Weight: 120.9 kg Body Mass Index (BMI) 36.1 Laboratory Tests Past 24 Hrs WBC RBC Hgb Hct MCV MCH Assessment/Plan All Active Problems Bilateral pneumonia (Acute) Shortness of breath (Acute) The patient is a 78 year old M with a significant history of heart failure with preserved ejection fraction; type 2 diabetes; COPD; CKD stage III who presents with persistent increased shortness of breath above his baseline; weakness; delirium and visual hallucination; increased oxygen requirements and a presumed failure of outpatient antibiotics for community-acquired pneumonia. Acute hypoxic respiratory failure secondary to pneumonia Patient failed outpatient antibiotics. CURB-65 is 2 points (confusion; age more than 65) White count is unremarkable; however patient with bandemia. CO2 is 41; shows chronic CO2 retention. Received breathing treatment; ceftriaxone and azithromycin at the emergency department Ceftriaxone and azithromycin continued Scheduled DuoNeb and as needed albuterol. Chest x-ray independently reviewed confirms bilateral infiltrates. BNP is unremarkable. Likely the bilateral infiltrate is pneumonia. Patient having failed outpatient treatment of pneumonia; and because of significant history of smoking agrees with radiology recommendation of CT scan of chest. CT scan chest ordered. Incentive spirometer and chest physiotherapy ordered. Blood cultures are pending. Sputum culture ordered. Streptococcus antigen and Legionella antigen ordered. Mycoplasma IgM and IgG ordered. Trend CBC and BMP. PT and OT for weakness Diabetes mellitus Blood glucose was not within goal at the time of admission Home basal insulin continued. Patient also reports taking correction scale insulin at home. Correction scale insulin continued. Diabetic diet. COPD Does not appear to be in acute COPD exacerbation Home breathing treatments continued Scheduled DuoNeb and as needed albuterol as above. Elevated blood pressure without diagnosis of hypertension. Blood pressure on admission was not within goal. Trend blood pressures. CKD stage III Creatinine on admission was 1.19 that could be considered as his baseline. Trend BMP. Heart failure with preserved ejection fraction Home Lasix continued DVT prophylaxis Subcutaneous heparin. Code Visit Inpatient E AND M: [id number] Init Hosp L3 05/11/18 0207 <Electronically signed by Catalino Calle MD> Date Catalino Calle MD Cosigner Signature: Date (if applicable) CC: WAREHOUSE SUPERVISOR 3RD SHIFT-C Gerri Griffin; Catalino Calle MD Signed CHEST WITH CONTRAST Observed: 05/11/2018 Status: F Source: QUECHEE 12:34 AM [facility] REPOSITORY [facility] Imaging Services [address] [place] [id number] Chest WITH Contrast MR#: [id number] Acct: [id number] Name: LIZZY SIDHU Rep #: [id number] : 1940 M 78 From: Luis Alfredo De Leon MD PCP: Gerri Griffin, WAREHOUSE SUPERVISOR 3RD SHIFTNemesio Status: ADM IN Study: Chest WITH Contrast Date of Exam: 05/11/18 Exam# [id number] Ordering Dr: Catalino Calle MD STUDY: CT CHEST WITH CONTRAST REASON FOR EXAM: Male, 78 years old. Shortness of breath RADIATION DOSAGE (If Supplied By Facility): CTDIvol = ( 20.05 ) mGy, DLP = ( 785.35 ) mGycm TECHNIQUE: Transaxial imaging was performed following intravenous administration of 100 ml of Isovue 300 contrast material. Individualized dose optimization techniques were used for this CT. COMPARISON: None. FINDINGS: Diffuse bilateral peribronchial nodular groundglass infiltration with bronchiolar wall thickening. Minimal patchy consolidation within the lingula. Mild bibasilar atelectasis. No pleural effusion or pneumothorax. Borderline cardiomegaly. Pericardium is normal. Shotty mediastinal and bilateral hilar lymph nodes. No definitive central pulmonary embolism. Thoracic aorta demonstrates no aneurysmal dilatation. There is mild atheromatous and atherosclerotic plaque formation involving the aortic arch and descending thoracic aorta. Moderate multilevel degenerative change of the spine. Normal osseous structures. There is no demonstrated abnormality of the visualized upper abdomen. CT/Chest WITH Contrast IMPRESSION: Diffuse bilateral peribronchial nodular groundglass infiltration with bronchiolar wall thickening, with patchy consolidation versus atelectasis in the lingula, and with reactive mediastinal and hilar lymphadenopathy. Electronically Signed: Luis Alfredo De Leon MD at 3:45 EDT Tel , Service support , CC: ESTEBAN Griffin; Catalino Calle MD Printing Sign Machine Operator: Signed EMERGENCY DEPARTMENT Observed: 05/10/2018 Status: F Source: [place] SUMMARY 11:40 PM [facility] REPOSITORY [facility] Medical Records Department [address] [place] [address] Emergency Department Summary 05/10/18 2253 MR#: [id number] Acct: [id number] Name: LIZZY SIDHU Rep #: [id number] : 1940 78 From: Vanessa Cash MD PCP: ESTEBAN Caro Status: REG ER - ER Visit Summary Date of Service: 05/10/18 Chief Complaint: Shortness of breath, delirious History of Present Illness: The patient is a 78 M with history of severe COPD, diabetes and hypertension with recurrent pneumonia who presents for 1 week of worsening shortness of breath and delirious. Patient was sent in by his primary care provider who evaluated him today and was concerned for episodes of delirium, increased need for his nebulizer this week, vomiting for 2 days, and recurrent pneumonia. Last antibiotic use was 2 weeks ago and was Levaquin. Patient's states that he has been hallucinating and having increased confusion. He has shortness of breath, productive cough and fever. Patient has had increased oxygen requirement at night and is normally on 3 L nasal cannula but is had it turned up to 4. Physical Examination: Vital signs: afebrile, hemodynamically stable, on 4 L nasal cannula at 93%, hypoxia General: well nourished, well developed, in mild distress Skin: warm, dry, no rash, no pallor HEENT: normocephalic and atraumatic; PERRL, EOMI, moist mucous membranes Cardiovascular: regular rate and rhythm without murmurs, no pitting peripheral edema, 2+ pulses all distal extremities Respiratory: Mild increased work of breathing, moist coarse cough, lungs are diminished left greater than right with rhonchi noted on the right Abdominal: Abdomen is soft, nontender with normoactive bowel sounds, no guarding or rebound, no masses MSK: Moves all extremities, no deformities, normal strength Neuro: Awake and alert, oriented 4. No facial droop, sensation and motor function intact and symmetric Test Results: Abnormal Lab Results WBC 9.0 RBC 4.27 L WBC RBC Hgb Hct MCV MCH MCHC RDW RDW Differential Plt Count MPV Immature Gran % (Auto) Neut % (Auto) Clinical Impression(s) from Imaging Studies Chest X-Ray 05/10/18 22:10 IMPRESSION: Limited study with partial visualization of a right middle lobe infiltrate. Cannot exclude left lingular infiltrate. Findings are similar to the prior study. This may represent chronic atelectasis and/or infiltrate versus recurrence. Recommend consideration for follow up CT scan of the chest for clarification when appropriate. Electronically Signed: Jennifer Ott MD at 22:37 EDT Tel , Service support , Medications Given Sodium Chloride () 1,000 mls @ 150 mls/hr IV .Q6H40M [facility] Last Admin: 05/10/18 21:55 Dose: 150 mls/hr Azithromycin 500 mg/ Dextrose 255 mls @ 250 mls/hr IV X1 ONE Stop: 05/10/18 23:53 Ceftriaxone Sodium (Rocephin) 1 gm in 50 mls @ 100 mls/hr IV X1 ONE Stop: 05/10/18 23:21 Discontinued Medications Albuterol Sulfate (Ventolin Aerosols) 2.5 mg INHALATION Q20M [facility] Stop: 05/10/18 22:11 Last Admin: 05/10/18 21:56 Dose: 2.5 mg Admin: 05/10/18 21:56 Dose: 2.5 mg Albuterol/Ipratropium (Duoneb) 3 ml INHALATION X1 ONE Stop: 05/10/18 21:31 Last Admin: 05/10/18 21:55 Dose: 3 ml Emergency Department Course and Treatment: Patient presents with worsening shortness of breath, increased oxygen requirement at home, and concern for recurrent pneumonia. Patient is having delirium, worse at night, with some visual hallucinations. Patient's lung exam is concerning for COPD exacerbation and possible pneumonia, with coarse rhonchi on the right. She was given breathing treatments. CBC showed no leukocytosis but was positive for bandemia. Troponin negative. EKG showed a sinus rhythm without ischemia or ectopy. Lactate normal. BNP was within normal limits. Chest x-ray showed a right middle lobe and a left lingular infiltrate. Patient was started on Rocephin and azithromycin IV. His last antibiotic he had been on per the patient was Levaquin. Patient has failed outpatient treatment for pneumonia and given multiple medical comorbidities, he will require IV antibiotics and inpatient management. Patient did have a questionable nonsustained run of V. tach while in the emergency department that was noted on the monitor. Patient had no symptoms associated with it. Patient thought it happened because he was tapping his arm against the bed rail while watching walker [place], however when asking patient to reproduce the movement he was making, there was no artifact on the monitor. Patient was watched closely and had no further ectopy. Patient will be discussed with the hospitalist for admission. Treatment Plan: [] Disposition: [] Impression: Right middle lobe and left lingular pneumonia, failed outpatient treatment, nonsustained episode of asymptomatic V. tach This note was generated with [employer] dictation software. It may contain incorrect words, spelling, and punctuation that were not noted in review of the chart prior to signing ED Disposition - Plan for ED Patient: Chief Complaint: Weakness Referrals: Gerri Griffin, WAREHOUSE SUPERVISOR 3RD SHIFT-C [Primary Care Provider] - What to do if you have Problems For any increased pain, shortness of breath, bleeding, nausea or vomiting, chest pain, or any unexpected problems, contact your Primary Care Provider. Call [facility] ([phone]) or report to the closest Emergency Room. Call 911 if necessary. 05/10/18 1560 <Electronically signed by Vanessa Cash MD> Date Vanessa Cash MD Cosigner Signature (If Indicated): Date CC: WAREHOUSE SUPERVISOR [employer]RD [employer]-C Gerri Griffin URINALYSIS, COMPLETE Collected: 05/10/2018 Status: F Source: [place] 10:50 PM [facility] REPOSITORY Order Comment: Order Date: 05/10/18 How was Urine Obtained? CLEAN CATCH TYPE CODE TESTS RESULT OUT OF RANGE REFERENCE UNITS LAB L400.3000 Yellow COLOR Normal Yellow LAB L400.3050 Clear Normal CLARITY Clear LAB L400.3200 Normal mg/dl Normal GLUCOSE, UR Normal LAB L400.3300 Negative mg/dL Normal BILIRUBIN URINE Negative LAB L400.3400 Negative mg/dl High 5 KETONE UR LAB L400.3465 1.002-1.030 Normal SP.GR. DIPSTX 1.020 LAB L400.3550 5.0 - 8.0 pH UR Normal 5.0 LAB L400.3600 Negative mg/dl High PROT DIPSTX 100 LAB L400.3700 Normal mg/dl Normal UROBILI Normal LAB L400.3750 Negative Normal NITRITE UR Negative LAB L400.3780 Negative /ul Normal OCCULT BLOOD-UR Negative LAB L400.3800 Negative /ul High LEUK 25 ESTERASE LAB L400.4050 0-5 /hpf WBC Normal 0-5 SEEN LAB L400.4100 0-5 /hpf 0 Normal RBC-UA SEEN LAB L400.4150 0-5 /hpf SQUAM Normal EPI 5-10 SEEN LAB L400.4300 None Seen /hpf 0 Normal BACTERIA SEEN LAB L400.4350 <or=2+ /hpf 0 Normal MUCUS, URINE SEEN Performed By: #### L400.0001 #### [facility] [address] [facility] [place], [address] Observed: 05/10/2018 Status: F Source: [place] LEGIONELLA ANTIGEN 10:50 PM [facility] URINE REPOSITORY Comments: okay per lab to use ER sample Legionella, UR Legionella Antigen result interpretation: Negative Presumptive negative for Legionella pneumophila serogroup 1 antigen in urine, suggesting no recent or current infection. Legionella Ag, Urine Negative (See interpretation below) Performed By: #### M300.4500 #### [facility] [address] [place] [address]. [place], [address] STREP Observed: 05/10/2018 Status: F Source: [place] PNEUMONIAE ANTIG(UR,CSF) 10:50 PM [facility] REPOSITORY Comments: okay per lab to use ER sample S pneumo Ag URINE INTERPRETATION Negative Urine Presumptive negative for pneumococcal pneumonia, suggesting no current or recent pneumococcal infection. Infection due to S pneumoniae cannot be ruled out since the antigen present in the sample may be below the detection limit of the test. Strep pneumo Test Negative URINE (See interpretation below) Performed By: #### M300.4600 #### [facility] [facility] [place], [address] Observed: 05/10/2018 Status: F Source: [place] CULTURE, URINE 10:50 PM [facility] REPOSITORY Order Date: 05/10/18 Urine Culture Below infection level. ORGANISM 1: Mixed Gram Positive Organisms [place] Count 1000-10,000 Performed By: #### M100.0650 #### [facility] [facility] [place], [address] CBC W/DIFF, AUTOMATED Collected: 05/10/2018 Status: F Source: [place] 9:39 PM [facility] REPOSITORY TYPE CODE TESTS RESULT OUT OF RANGE REFERENCE UNITS LAB L100.1000 4.4-11.0 K/mm3 Normal WBC 9.0 LAB L100.1200 4.6-6.2 M/mm3 Low RBC 4.27 LAB L100.1300 13.0-16.5 g/dl Low HGB 11.8 LAB L100.1400 40-54 % Low HCT 39.5 LAB L100.1500 80-94 fL Normal MCV 92.5 LAB L100.1600 27.0-32.0 pg Normal MCH 27.6 LAB L100.1700 32-36 g/gl Low MCHC 29.9 LAB L100.1810 11.6-14.6 % Normal RDW CV 13.3 LAB L100.1820 35.1-43.9 fl Normal RDW SD 43.8 LAB L100.1900 150-450 K/mm3 Normal PLT 243 LAB L100.2000 6.2-12.0 fl Normal MPV 10.2 LAB L100.2100 47-70 % Normal NEUT% 66.3 LAB L100.2200 19-41 % Low LY% 17.8 LAB L100.2300 0-10 % High MONO% 11.6 LAB L100.2400 0-5 % Normal EO% 2.2 LAB L100.2500 0-1 % Normal BASO% 0.2 LAB L100.2550 0.0-0.9 % High IM GRAN % 1.900 Result Comment: IG% - Immature Granulocytes (promyelocytes, myelocytes and metamyelocytes) > 1% indicates that a LEFT SHIFT is Present. LAB L100.2620 2.0-7.7 X10 3/uL Normal Absolute Neut 6.0 LAB L100.2720 0.83-4.51 X10 3/ul Normal Absolute Lymph 1.60 Performed By: #### L100.0100 #### [facility] [address] [place], [address] PROTHROMBIN TIME W/INR Collected: 05/10/2018 Status: F Source: [place] 9:39 PM [facility] REPOSITORY TYPE CODE TESTS RESULT OUT OF RANGE REFERENCE UNITS LAB L300.4150 11.7-14.9 SECONDS Normal PROTIME 14.0 LAB L300.4200 Normal INR 1.1 Performed By: #### L300.3900, L300.4310 #### [facility] [address] [place], [place], [address] PARTIAL THROMBOPLAST Collected: 05/10/2018 Status: F Source: [place] TIME 9:39 PM [facility] REPOSITORY TYPE CODE TESTS RESULT OUT OF RANGE REFERENCE UNITS LAB L300.4310 24.1-36.2 Seconds Normal PTT 33.0 Performed By: #### L300.3900, L300.4310 #### [facility] [address] [place], [address] BNP,B-TYPE NATRIURETIC Collected: 05/10/2018 Status: F Source: [place] PEPTIDE 9:39 PM [facility] REPOSITORY TYPE CODE TESTS RESULT OUT OF RANGE REFERENCE UNITS LAB L503.6620 0-100 pg/mL Normal B-TYPE 31.1 COMPA PEP Performed By: #### L503.6620 #### [facility] [address] [place], [address] COMPREHENSIVE METABOLIC Collected: 05/10/2018 Status: F Source: [place] PROFIL 9:39 PM [facility] REPOSITORY TYPE CODE TESTS RESULT OUT OF RANGE REFERENCE UNITS LAB L501.0100 74-106 mg/dL High GLU 272 Result Comment: Glucose result greater than or equal to 200 mg/dL suggests DIABETES MELLITUS per A.D.A. criteria. Please note revised GLUCOSE reference range effective 2017. LAB L501.1000 7-18 mg/dL High BUN 19 LAB L501.1100 0.70-1.30 mg/dL Normal CREAT,SERUM 1.19 Result Comment: The validity of the calculated GFR AND GFRAA in patients over 70 years has not been determined. Clinical correlation is essential. LAB L501.1110 >60 mL/min Normal EST GFR 63 Result Comment: Non- GFR Calc LAB L501.1115 >60 mL/min Normal EST GFR - AA 76 Result Comment: GFR Calc LAB L501.1255 ml/min Normal Estimated CRCL 57.06 LAB L501.1300 10-20 RATIO Normal BUN/CRE 16.0 LAB L501.1500 6.4-8. g/dL Normal 2 T PROT 7.2 LAB L501.1800 3.2-5. g/dL Low 0 ALB 2.8 LAB L501.1950 2.2-4. g/dL High 2 GLOB 4.4 LAB L501.2000 0.9-2. RATIO Low 4 A/G 0.6 LAB L501.2200 8.5-10 mg/dL Normal .1 CA 9.1 LAB L501.4100 15-37 U/L Low AST 9 LAB L501.4305 45-117 U/L Normal ALK P 93 LAB L501.4405 16-61 U/L Low ALT 15 LAB L501.4600 0.20-1 mg/dL Normal .00 T BILI 0.20 LAB L501.5300 136-14 mmol/L Normal 5 NA 136 LAB L501.5600 3.5-5. mmol/L Normal 1 K 3.7 LAB L501.5900 98-107 mmol/L Low CL 91 LAB L501.6100 21.0-3 mmol/L High 2.0 CO2 41.0 LAB L501.6200 5-15 Low GAP 4 Performed By: #### L500.4050, L501.4010 #### [facility] [address] [place], [address] TROPONIN-I Collected: 05/10/2018 Status: F Source: [place] 9:39 PM [facility] REPOSITORY TYPE CODE TESTS RESULT OUT OF RANGE REFERENCE UNITS LAB L501.4010 <0.045 ng/mL Normal < 0.015 TROPONIN-I Result Comment: TROPONIN-I EXPECTED VALUES <0.045 Negative 0.045 - 0.590 Consistent with Cardiac Damage > OR = 0.600 Critical Value Not every elevated troponin is indicative of [place]. These values should be used with clinical judgement in examining the patient's clinical picture for diagnosis. To establish a diagnosis of [place] versus myocardial injury, there must be a demonstrated rise and/or fall in the troponin values, in addition to ischemic symptoms, EKG changes, new regional wall motion abnormality, and/or angiographical evidence. PLEASE NOTE: REFERENCE RANGES EDITED 17 Performed By: #### L500.4050, L501.4010 #### [facility] [address] [place], [address] LACTIC ACID Collected: 05/10/2018 Status: F Source: BR[place] 9:39 PM [facility] REPOSITORY Order Comment: Yes/No query for Sepsis Lactate Rule Y TYPE CODE TESTS RESULT OUT OF RANGE REFERENCE UNITS LAB L503.6005 0.4-2.0 mmol/L Normal LACTIC ACID 0.9 Performed By: #### L503.6005 #### [facility] [address] [place], [address] Observed: 05/10/2018 Status: F Source: [place] CULTURE, BLOOD (WB) 9:39 PM [facility] REPOSITORY BC No growth in 5 days. Performed By: #### M200.1000 #### [facility] [address] [place], [address] Observed: 05/10/2018 Status: F Source: [place] CULTURE, BLOOD (WB) 9:39 PM [facility] REPOSITORY BC No growth in 5 days. Performed By: #### M200.1000 #### [facility] [address] [place], [place], [address] CHEST PA AND LATERAL Observed: 05/10/2018 Status: F Source: BR[place] 9:31 PM [facility] REPOSITORY [facility] Imaging Services [address] [place] [address] Chest PA and Lateral MR#: [id number] Acct: [id number] Name: LIZZY SIDHU Rep #: [id number] : 1940 M 78 From: Jennifer Ott MD PCP: Gerri Griffin, WAREHOUSE SUPERVISOR 3RD SHIFT-C Status: REG ER Study: Chest PA and Lateral Date of Exam: 05/10/18 Exam# [id number] Ordering Dr: Vanessa Cash MD STUDY: X-RAY CHEST REASON FOR EXAM: Male, 78 years old. Generalized weakness being treated for pneumonia TECHNIQUE: Acquired COMPARISON: February 27, 2016 chest x-ray FINDINGS: The lung bases are obscured on the AP view. There is focal density in the right middle lobe and probably the left lingula. A portion of this may represent prominent cardiac fat pad. There is mild cardiac enlargement. Normal mediastinum and venkat. Normal visualized pulmonary arteries. Normal visualized aortic arch and descending thoracic aorta. Normal visualized thoracic spine. Normal visualized ribs, clavicles, and shoulders. There is no demonstrated abnormality of the visualized soft tissue structures of the upper abdomen. RAD/Chest PA and Lateral IMPRESSION: Limited study with partial visualization of a right middle lobe infiltrate. Cannot exclude left lingular infiltrate. Findings are similar to the prior study. This may represent chronic atelectasis and/or infiltrate versus recurrence. Recommend consideration for follow up CT scan of the chest for clarification when appropriate. Electronically Signed: Jennifer Ott MD at 22:37 EDT Tel , Service support , CC: ESTEBAN Griffin; Vanessa Cash MD Printing Sign Machine Operator: Signed CBC-COMPLETE BLOOD CNT Collected: 04/30/2018 Status: F Source: BR[place] NO DIFF 4:00 PM [facility] REPOSITORY Order Comment: FAX RESULTS TO @[id number] TYPE CODE TESTS RESULT OUT OF RANGE REFERENCE UNITS LAB L100.1000 4.4-11.0 K/mm3 Normal WBC 5.6 LAB L100.1200 4.6-6.2 M/mm3 Normal RBC 4.94 LAB L100.1300 13.0-16.5 g/dl Normal HGB 13.8 LAB L100.1400 40-54 % Normal HCT 44.3 LAB L100.1500 80-94 fL Normal MCV 89.7 LAB L100.1600 27.0-32.0 pg Normal MCH 27.9 LAB L100.1700 32-36 g/gl Low MCHC 31.2 LAB L100.1810 11.6-14.6 % Normal RDW CV 14.0 LAB L100.1820 35.1-43.9 fl High RDW SD 46.0 LAB L100.1900 150-450 K/mm3 Normal PLT 226 LAB L100.2000 6.2-12.0 fl Normal MPV 11.2 Performed By: #### L100.0500 #### [facility] [address] [place], [place], [address] VITAMIN B12 Collected: 04/30/2018 Status: F Source: [place] 4:00 PM [facility] REPOSITORY Order Comment: FAX RESULTS TO @[id number] TYPE CODE TESTS RESULT OUT OF RANGE REFERENCE UNITS LAB L503.0105 211-911 pg/mL Normal Vitamin B12 443 Performed By: #### L503.0105, L506.1000 #### [facility] [address] [facility] [place], [address] VITAMIN D,25 HYDROXY Collected: 04/30/2018 Status: F Source: [place] 4:00 [facility] REPOSITORY Order Comment: FAX RESULTS TO @[id number] TYPE CODE TESTS RESULT OUT OF RANGE REFERENCE UNITS LAB L506.1000 29.95-100.01 ng/mL Normal Vitamin D 32.3 25-OH Result Comment: Vitamin D 25(OH) Status Range Deficiency <20 ng/mL (50nmol/L) Insuffciency 20 - 30 ng/mL (50 - 75 nmol/L) Sufficiency 30 - 100 ng/mL (75 - 250 nmol/L) Toxicity >100 ng/mL (>250 nmol/L) Performed By: #### L503.0105, L506.1000 #### [facility] [address] [place], [address] COMPREHENSIVE METABOLIC Collected: 04/30/2018 Status: F Source: [place] PROFIL 4:00 PM [facility] REPOSITORY Order Comment: FAX RESULTS TO @[id number] TYPE CODE TESTS RESULT OUT OF RANGE REFERENCE UNITS LAB L501.0100 74-106 mg/dL High GLU 153 Result Comment: Fasting Glucose result greater than or equal to 126 mg/dL suggests DIABETES MELLITUS per A.D.A. criteria. Please note revised GLUCOSE reference range effective 2017. LAB L501.1000 7-18 mg/dL High BUN 21 LAB L501.1100 0.70-1.30 mg/dL High CREAT,SERUM 1.40 Result Comment: The validity of the calculated GFR AND GFRAA in patients over 70 years has not been determined. Clinical correlation is essential. LAB L501.1110 >60 mL/min Low EST GFR 52 Result Comment: Non- GFR Calc LAB L501.1115 >60 mL/min Normal EST GFR - AA 63 Result Comment: GFR Calc LAB L501.1300 10-20 RATIO Normal BUN/CRE 15.0 LAB L501.1500 6.4-8.2 g/dL T Normal PROT 7.1 LAB L501.1800 3.2-5.0 g/dL Normal ALB 3.8 LAB L501.1950 2.2-4.2 g/dL Normal GLOB 3.3 LAB L501.2000 0.9-2.4 RATIO Normal A/G 1.2 LAB L501.2200 8.5-10.1 mg/dL CA Normal 9.0 LAB L501.4100 15-37 U/L Low AST 14 LAB L501.4305 45-117 U/L Normal ALK P 106 LAB L501.4405 16-61 U/L Normal ALT 18 LAB L501.4600 0.20-1.00 mg/dL T Normal BILI 0.30 LAB L501.5300 136-145 mmol/L NA Normal 140 LAB L501.5600 3.5-5.1 mmol/L K Normal 4.2 LAB L501.5900 98-107 mmol/L CL Normal 101 LAB L501.6100 21.0-32.0 mmol/L High CO2 33.0 LAB L501.6200 5-15 Normal GAP 6 Performed By: #### L500.4050 #### [facility] [address] [place], [address] HEMOGLOBIN A1C Collected: 04/30/2018 Status: F Source: [place] 4:00 PM [facility] REPOSITORY Order Comment: FAX RESULTS TO @[id number] TYPE CODE TESTS RESULT OUT OF RANGE REFERENCE UNITS LAB L501.9985 4.2-6.3 % High HGB A1C 7.5 Performed By: #### L501.9985 #### [facility] [address] [place], [address] CBC W/DIFF, AUTOMATED Collected: 01/08/2018 Status: F Source: [place] 4:30 PM [facility] REPOSITORY TYPE CODE TESTS RESULT OUT OF RANGE REFERENCE UNITS LAB L100.1000 4.4-11.0 K/mm3 Normal WBC 5.7 LAB L100.1200 4.6-6.2 M/mm3 Normal RBC 4.63 LAB L100.1300 13.0-16.5 g/dl Low HGB 12.5 LAB L100.1400 40-54 % Normal HCT 41.1 LAB L100.1500 80-94 fL Normal MCV 88.8 LAB L100.1600 27.0-32.0 pg Normal MCH 27.0 LAB L100.1700 32-36 g/gl Low MCHC 30.4 LAB L100.1810 11.6-14.6 % Normal RDW CV 13.7 LAB L100.1820 35.1-43.9 fl High RDW SD 44.5 LAB L100.1900 150-450 K/mm3 Normal PLT 205 LAB L100.2000 6.2-12.0 fl Normal MPV 11.7 LAB L100.2100 47-70 % Normal NEUT% 59.3 LAB L100.2200 19-41 % Normal LY% 27.4 LAB L100.2300 0-10 % Normal MONO% 8.3 LAB L100.2400 0-5 % Normal EO% 4.8 LAB L100.2500 0-1 % Normal BASO% 0.2 LAB L100.2550 0.0-0.9 % Normal IM GRAN % 0.000 Result Comment: IG% - Immature Granulocytes (promyelocytes, myelocytes and metamyelocytes) > 1% indicates that a LEFT SHIFT is Present. LAB L100.2620 2.0-7.7 X10 3/uL Normal Absolute Neut 3.4 LAB L100.2720 0.83-4.51 X10 3/ul Normal Absolute Lymph 1.55 Performed By: #### L100.0100 #### [facility] [address] [place], [place], [address] COMPREHENSIVE METABOLIC Collected: 01/08/2018 Status: F Source: [place]EN[place] MARTIN 4:30 PM [facility] REPOSITORY TYPE CODE TESTS RESULT OUT OF RANGE REFERENCE UNITS LAB L501.0100 74-106 mg/dL High GLU 245 Result Comment: Glucose result greater than or equal to 200 mg/dL suggests DIABETES MELLITUS per A.D.A. criteria. Please note revised GLUCOSE reference range effective 2017. LAB L501.1000 7-18 mg/dL High BUN 26 LAB L501.1100 0.70-1.30 mg/dL High CREAT,SERUM 1.49 Result Comment: The validity of the calculated GFR AND GFRAA in patients over 70 years has not been determined. Clinical correlation is essential. LAB L501.1110 >60 mL/min Low EST GFR 49 Result Comment: Non- GFR Calc LAB L501.1115 >60 mL/min Low EST GFR - AA 59 Result Comment: GFR Calc LAB L501.1300 10-20 RATIO Normal BUN/CRE 17.4 LAB L501.1500 6.4-8.2 g/dL T Normal PROT 6.7 LAB L501.1800 3.2-5.0 g/dL Normal ALB 3.5 LAB L501.1950 2.2-4.2 g/dL Normal GLOB 3.2 LAB L501.2000 0.9-2.4 RATIO Normal A/G 1.1 LAB L501.2200 8.5-10.1 mg/dL CA Normal 9.2 LAB L501.4100 15-37 U/L Low AST 12 LAB L501.4305 45-117 U/L Normal ALK P 94 LAB L501.4405 16-61 U/L Normal ALT 16 LAB L501.4600 0.20-1.00 mg/dL T Normal BILI 0.20 LAB L501.5300 136-145 mmol/L NA Normal 140 LAB L501.5600 3.5-5.1 mmol/L K Normal 3.9 LAB L501.5900 98-107 mmol/L Low CL 97 LAB L501.6100 21.0-32.0 mmol/L High CO2 36.0 LAB L501.6200 5-15 Normal GAP 7 Performed By: #### L500.4050 #### [facility] [place], [address] HEMOGLOBIN A1C Collected: 01/08/2018 Status: F Source: [place] 4:30 PM [facility] REPOSITORY TYPE CODE TESTS RESULT OUT OF RANGE REFERENCE UNITS LAB L501.9985 4.2-6.3 % High HGB A1C 8.1 Performed By: #### L501.9985 #### [facility] [address] [place], [address] VITAMIN B12 Collected: 01/08/2018 Status: F Source: [place] 4:30 PM [facility] REPOSITORY TYPE CODE TESTS RESULT OUT OF RANGE REFERENCE UNITS LAB L503.0105 211-911 pg/mL Normal Vitamin B12 335 Performed By: #### L503.0105, L506.1000 #### [facility] [address] [place], [address] VITAMIN D,25 HYDROXY Collected: 01/08/2018 Status: F Source: [place] 4:30 PM [facility] REPOSITORY TYPE CODE TESTS RESULT OUT OF RANGE REFERENCE UNITS LAB L506.1000 29.95-100.01 ng/mL Normal Vitamin D 34.0 25-OH Result Comment: Vitamin D 25(OH) Status Range Deficiency <20 ng/mL (50nmol/L) Insuffciency 20 - 30 ng/mL (50 - 75 nmol/L) Sufficiency 30 - 100 ng/mL (75 - 250 nmol/L) Toxicity >100 ng/mL (>250 nmol/L) Performed By: #### L503.0105, L506.1000 #### [facility] [address] [place], [address] ALLERGIES ALLERGIES DATE TYPE / CODE NAME / CODE REACTION SEVERITY SOURCE 05/25/2018 Drug lisinopril/F006 Other Unknown Brenna Allergy/[id number](S 587726(RXNORM) [facility]) Hospital Repository 05/25/2018 Drug codeine/[id number] Confused Unknown Brenna Allergy/[id number](S 550(RXNORM) [facility]) Hospital Repository 05/25/2018 Miscellaneous BETA DEAN Hives Unknown Brenna Allergy/[id number]([facility]) Hospital Repository 05/25/2018 Miscellaneous PAIN MEDICATION Itching Unknown [place] Allergy/[id number](S [facility]) Hospital Repository ENCOUNTERS ENCOUNTERS ADMIT/DISCHARGE ACCOUNT ADMITTING ENCOUNTER LOCATION SOURCE NUMBER CLASS 07/30/2018 [id number] Ambulatory Brenna [place] [facility] ing:LABSPEC Repository 06/02/2018 [id number] Ambulatory [place] [facility] ing:LABSPEC Repository 05/25/2018/ [id number] Ambulatory BMSBuilding:B Brenna 8 4 [facility] Repository 05/24/2018 [id number] Ambulatory Brenna [place] 3 [facility] ing:CCN Repository 05/10/2018/ [id number] [place], Inpatient Brenna Brenna 8 2 [place] Encounter [facility] ing:PCURoom: Repository [id number]: 1 05/10/2018 [id number] [place], Ambulatory BMSBuilding:B [place] 8 [place] [facility] Repository 05/10/2018 [id number] [place], Ambulatory BMSBuilding:B [place] 5 [place] [facility] Repository 05/10/2018 [id number] [place], Ambulatory BMSBuilding:B [place] 5 [place] [facility] Repository 05/10/2018 [id number] [place], Ambulatory BMSBuilding:B [place] 4 [place] MS.CF.[facility] Repository 05/10/2018 [id number] [place], Ambulatory BMSBuilding:B [place] 3 [place] [facility] Repository 05/10/2018/ [id number] Ambulatory BMSBuilding:W Brenna 8 1 [facility] Repository 05/10/2018/ [id number] Ambulatory BMSBuilding:W [place] 8 6 [facility] Repository 04/30/2018 [id number] Ambulatory Brenna [place] [facility] ing:LABSPEC Repository 01/08/2018 [id number] Ambulatory Brenna [place] 6 [facility] ing:LABSPEC Repository PAYERS PAYERS ENCOUNTER GUARANTOR PAYER SUBSCRIBER SOURCE 07/30/2018 LIZZY SIDHU Primary Insurance:[facility] LIZZY PERTEE [place] Jr.[address] [facility] MCRDUAL COMP HMO* NOT Jr.: [place] CONTPolicy Number: [id number] Hospital [address]Aeo: 330 [id number] Repository [phone] (HP) Date:5658-84-47CE [address] [place] [address]XE: 07/30/2018 Secondary NOT GIVENUNK Brenna Insurance:SELF PAY [facility] Number: Effective Repository Date:2018-07-30 06/02/2018 LIZZY Primary NOT GIVENUNK [place] [id number] Insurance:SELF PAY [place] Number: Effective Repository [phone]: (330) Date:2018-06-02 [phone] () 05/25/2018 LIZZY Primary Insurance:[facility] LIZZY Brenna [id number] MCRDUAL COMP HMO* NOT PERTEEDOB: [facility] Number: [id number] [id number] Repository 30963Zmf: (330) Date:4711-00-52CX [phone] () [address] [place] [address]VH: 05/25/2018 Secondary LIZZY [place] Insurance:[facility] PERTEEDOB: [facility] [id number] Hospital Number: Repository [id number] Date:7022-77-89XA [address] [place] [address] 88874UY: 05/25/2018 Tertiary NOT GIVENUNK [place] Insurance:SELF PAY [facility] Number: Effective Repository Date:2018-05-18 05/24/2018 LIZZY Primary NOT GIVENUNK [place] [id number] Insurance:SELF PAY [place] Number: Effective Repository [phone]: (330) Date:2018-05-24 [phone] () 05/10/2018 LIZZY Primary Insurance:[facility] LIZZY Brenna [id number] MCRDUAL COMP HMO* NOT PERTEEDOB: Community [place] CONTPolicy Number: [id number], [place] [id number] Repository 13046Dbc: (330) Date:0359-58-88NC [phone] (HP) [address] [place] [address]OJ: 05/10/2018 Secondary LIZZY Brenna Insurance:[facility] PERTEEDOB: Community COMMUNITY PLANPolicy [id number] Hospital Number: Repository [id number] Date:6667-65-69DV [address] [place] [address] 70808CU: 05/10/2018 Tertiary NOT GIVENUNK Brenna Insurance:SELF PAY [facility] Number: Effective Repository Date:2018-05-10 05/10/2018 LIZZY Primary Insurance:[facility] LIZZY [place] [id number] MCRDUAL COMP HMO* NOT PERTEEDOB: Community [place] CONTPolicy Number: [id number], [place] [id number] Repository 55877Qqo: (330) Date:4053-83-51IO [phone] () [address] [place] [address]96[address]KO: 05/10/2018 Secondary LIZZY [place] Insurance:[facility] PERTEEDOB: Community [facility] PLANPolicy [id number] Hospital Number: Repository [id number] Date:2774-06-81YA [address] [address]XY: 05/10/2018 Tertiary NOT GIVENUNK Brenna Insurance:SELF PAY [facility] Hospital Number: Effective Repository Date:2018-05-10 05/10/2018 LIZZY Primary Insurance:[facility] LIZZY [place] [id number] MCRDUAL COMP HMO* NOT PERTEEDOB: Community [place] CONTPolicy Number: [id number], [place] [id number] Repository 71854Sxd: (330) Date:6558-85-96FK [phone] (HP) [address] [place] [address]XE: 05/10/2018 Secondary LIZZY [place] Insurance:[facility] PERTEEDOB: [facility] PLANPoly [id number] Hospital Number: Repository [id number] Date:3093-28-27ME [address] [address]IN: 05/10/2018 Tertiary NOT GIVENUNK Brenna Insurance:SELF PAY [facility] Hospital Number: Effective Repository Date:2018-05-10 05/10/2018 LIZZY Primary Insurance:[facility] LIZZY Brenna [id number] MCRDUAL COMP HMO* NOT PERTEEDOB: [facility] [place] CONTPolicy Number: [id number], [place] [id number] Repository 46273Xcf: ([phone]) Date:2944-69-76NQ [phone] () [address] [place] [address]FG: 05/10/2018 Secondary LIZZY Brenna Insurance:[facility] PERTEEDOB: [facility] [id number] Hospital Number: Repository [id number] Date:0023-93-66JX [address] [address]YH: 05/10/2018 Tertiary NOT GIVENUNK Brenna Insurance:SELF PAY [facility] Hospital Number: Effective Repository Date:2018-05-10 05/10/2018 LIZZY Primary Insurance:[facility] LIZZY [place] [id number] MCRDUAL COMP HMO* NOT PERTEEDOB: [facility] [place] CONTPolicy Number: [id number], [place] [id number] Repository 35765Kmm: ([phone]) Date:5717-78-69RL [phone] () [address] [place] [address]AU: 05/10/2018 Secondary LIZZY Brenna Insurance:[facility] PERTEEDOB: [facility] [id number] Hospital Number: Repository [id number] Date:3322-57-02YB [address] [place] [address]HE: 05/10/2018 Tertiary NOT GIVENUNK [place] Insurance:SELF PAY [facility] Number: Effective Repository Date:2018-05-10 05/10/2018 LIZZY Primary Insurance:[facility] LIZZY Brenna [id number] MCRDUAL COMP HMO* NOT PERTEEDOB: [facility] [place] CONTPolicy Number: [id number], [place] [id number] Repository 525[address]Wey: (330) Date:1766-59-60IW [phone] () [address] [place] [address]AE: 05/10/2018 Secondary LIZZY [place] Insurance:[facility] PERTEEDOB: Community COMMUNITY PLANPolicy [id number] Hospital Number: Repository [id number] Date:1067-56-54JN [address] [address]WA: 05/10/2018 Tertiary NOT GIVENUNK Brenna Insurance:SELF PAY [facility] Number: Effective Repository Date:2018-05-10 05/10/2018 LIZZY Primary Insurance:[facility] LIZZY Brenna [id number] MCRDUAL COMP HMO* NOT PERTEEDOB: [facility] [place] CONTPolicy Number: [id number], [place] [id number] Repository 90[address]Ljy: (330) Date:6213-07-94UY [phone] () [address] [place] [address]UI: 05/10/2018 Secondary LIZZY [place] Insurance:[facility] PERTEEDOB: Community COMMUNITY PLANPolicy [id number] Hospital Number: Repository [id number] Date:0371-82-94QF [address] [address]AY: 05/10/2018 Tertiary NOT GIVENUNK Brenna Insurance:SELF PAY [facility] Number: Effective Repository Date:2018-05-10 05/10/2018 LIZZY Primary Insurance:[facility] LIZZY [place] [id number] MCRDUAL COMP HMO* NOT PERTEEDOB: Community [place] CONTPolicy Number: [id number], [place] [id number] Repository 475[address]Sig: (330) Date:1332-60-03TR [phone] (HP) [place] [address]BH: 05/10/2018 Secondary LIZZY Brenna Insurance:[facility] PERTEEDOB: Community [facility] [id number] Hospital Number: Repository [id number] Date:4279-50-79BO [address] [address]KA: 05/10/2018 Tertiary NOT GIVENUNK [place] Insurance:SELF PAY [facility] Number: Effective Repository Date:2018-05-10 04/30/2018 LIZZY Primary LIZZY [place] [id number] [facility] PERTEEDOB: Community [place] *IN [facility] [id number] Number: Repository [address]Nij: 330 [id number] [phone] () Date:0893-48-10FD [address] [address]KP: 04/30/2018 Secondary NOT GIVENUNK [place] Insurance:SELF PAY [facility] Number: Effective Repository Date:2018-04-30 01/08/2018 LIZZY Primary LIZZY Brenna [id number] Insurance:[facility] PERTEEDOB: Community [place] *IN [facility] [id number] Number: Repository [address]Bda: 330 [id number] [phone] () Date:1281-08-91YP [address] [address]DM: 01/08/2018 Secondary NOT GIVENUNK [place] Insurance:SELF PAY [facility] Number: Effective Repository Date:2018-01-08
== END ==
PROVIDERS: Family Provider Nurse Practitioner Adult Health; PCP Nurse Practitioner Adult Health; Referring Provider Nurse Practitioner Adult Health; Visit Provider Nurse Practitioner Adult Health
DX: I10 Essential (primary) hypertension (principal); E11.65 Type 2 diabetes mellitus with hyperglycemia; E56.8 Deficiency of other vitamins; E53.8 Deficiency of other specified B group vitamins
CPT/HCPCS: 80053; 82306; 82607; 83036; 85027

== ENCOUNTER 2018-11-08 16:14 | Emergency (ER) | payer MEDICARE, MEDICAID, SELFPAY ==
[2018-11-08 16:15] VITALS: BP 163/72; PULSE 77; RESP 19; TEMP 37.3; O2SAT 87; BMI 35.9
[2018-11-08 16:24] VITALS: O2SAT 93
--- NOTE | 2018-11-08 16:28 | EKG12_ITS ---
Test Reason : SOB Blood Pressure : / mmHG Vent. Rate : 077 BPM Atrial Rate : 077 BPM P-R Int : 162 ms QRS Dur : 100 ms QT Int : 386 ms P-R-T Axes : 045 063 070 degrees QTc Int : 436 ms Normal sinus rhythm Low voltage QRS Nonspecific ST/T Wave Abnormality Confirmed by MATTHEW MARIA, DEVI ([id number]), supervising editor news reel JUHI JIMENES ([id number]) on 11/11/2018 9:11:07 AM Referred By: YAKOV
--- NOTE | 2018-11-08 16:29 | CT_ITS ---
STUDY: CT ABDOMEN AND PELVIS WITHOUT CONTRAST REASON FOR EXAM: Male, 78 years old. Abdominal pain with cough RADIATION DOSAGE (If Supplied By Facility): CTDIvol = ( 23.76 ) mGy, DLP = ( 1799.25 ) mGycm TECHNIQUE: Transaxial images were obtained from the dome of the diaphragm to the symphysis pubis without oral contrast, and without intravenous contrast. Sagittal and coronal images were reconstructed. Individualized dose optimization techniques were used for this CT. COMPARISON: 05/11/2018 FINDINGS: Increased airspace disease in the right lower lobe with air bronchograms. There is a chronic process as seen on prior exam however, superimposed infection cannot be fully excluded. The visualized portions of the heart are within normal limits. Normal liver. Normal gallbladder and extrahepatic biliary system. Normal spleen. There is diffuse atrophy of the pancreas. Normal bilateral adrenal glands. Atrophy of the right kidney with a mid pole cyst measuring 4.4 cm. Atrophy of the left kidney. There is suspicion for left cortex lesion measuring 2.4 x 2.2 cm. Normal visualized stomach. Normal small intestine. There are multiple colonic diverticula consistent with diverticulosis. There is non-visualization of the appendix. Please note that some parts of the colon are not clearly imaged and the side of the scanner range due to large pannus. There is diffuse atherosclerotic calcification of the abdominal aorta, without a demonstrated aneurysm. Normal inferior vena cava. Normal retroperitoneum. Normal urinary bladder. Prostate seeds are noted. Limited evaluation of the pelvis due to beam hardening artifact from left hip arthroplasty Large pannus There are diffuse degenerative changes of the visualized lumbar spine. Postsurgical change of the left hip CT/Abdomen/Pelvis without Cont IMPRESSION: Increased airspace disease in the right lower lobe with some air bronchograms. There is a background of chronic scarring as seen on on exam from April. Superimposed infection cannot be excluded. Atrophy of the kidneys with suspicion for left renal cortex lesion. Nonemergent ultrasound is recommended to further evaluate No acute findings of the small or large bowel. Please note that portions of the large bowel outside of the imaging field for reasons above Electronically Signed: Kee Avila DO at 18:22 EDT Tel , Service support ,
--- NOTE | 2018-11-08 16:30 | ED.VISSUMM ---
- ER Visit Summary Date of Service: 11/08/18 Chief Complaint: Shortness of breath History of Present Illness: The patient is a 78 M who presents for 3 days of worsening shortness of breath. Patient has a history of COPD and denies history of CHF, although chart review shows he has been diagnosed with CHF. He states over the last 3 days he has gradually had worsening shortness of breath, worse with exertion. He cannot lay flat, but states that has been an issue for a long time. He has associated cough. Denies fever, chest pain. He started having severe diffuse abdominal pain today. He denies any nausea, vomiting or diarrhea. Patient has not recently been on any steroids or antibiotics. He denies being on any blood thinners. He is a former smoker. He is on home oxygen at 3 L at all times. Physical Examination: Vital signs: afebrile, hemodynamically stable, hypoxia on room air at 88% General: well nourished, well developed, in mild distress Skin: warm, dry, no rash, no pallor HEENT: normocephalic and atraumatic; PERRL, EOMI, moist mucous membranes Cardiovascular: regular rate and rhythm without murmurs, nonpitting peripheral edema, 2+ pulses all distal extremities Respiratory: Mild increased work of breathing, moist cough, lungs are globally diminished, rhonchi noted that will clear with cough, patient speaking in multi word sentences Abdominal: Abdomen is soft, obese, nontender with normoactive bowel sounds, no guarding or rebound, no masses MSK: Moves all extremities, no deformities, normal strength Neuro: Awake and alert, oriented ?4. No facial droop, sensation and motor function intact and symmetric Test Results: Abnormal Lab Results 11/08/18 11/08/18 11/08/18 16:40 16:40 16:40 WBC 9.9 RBC 4.15 L Hgb 11.4 L Hct 35.8 L MCV 86.3 MCH 27.5 MCHC 31.8 L RDW 14.2 RDW Differential 45.1 H Plt Count 257 MPV 10.6 Immature Gran % (Auto) 0.100 Neut % (Auto) 72.2 H Lymph % (Auto) 14.3 L [place] % (Auto) 12.1 H Eos % (Auto) 1.2 Baso % (Auto) 0.1 Absolute Neuts (auto) 7.2 Absolute Lymphs (auto) 1.42 Total Counted Not Reportable Differential Comment SCANNED Platelet Estimate ADEQUATE Sodium 133 L Potassium 3.6 Chloride 96 L Carbon Dioxide 32.0 Anion Gap 5 BUN 18 Creatinine 1.34 H Estim Creat Clear Calc 50.67 Est GFR (MDRD) Af Amer 66 Est GFR (MDRD) Non-Af 55 L BUN/Creatinine Ratio 13.4 Glucose 169 H Calcium 9.2 Total Bilirubin 0.40 AST 11 L ALT 13 L Alkaline Phosphatase 101 Troponin I < 0.015 B-Natriuretic Peptide 107.6 H Total Protein 7.6 Albumin 3.0 L Globulin 4.6 H Albumin/Globulin Ratio 0.7 L Lipase 37 L Clinical Impression(s) from Imaging Studies Abdomen/Pelvis CT 11/08/18 16:29 IMPRESSION: Increased airspace disease in the right lower lobe with some air bronchograms. There is a background of chronic scarring as seen on on exam from April. Superimposed infection cannot be excluded. Atrophy of the kidneys with suspicion for left renal cortex lesion. Nonemergent ultrasound is recommended to further evaluate No acute findings of the small or large bowel. Please note that portions of the large bowel outside of the imaging field for reasons above Electronically Signed: Kee Avila DO at 18:22 EDT Tel , Service support , Chest X-Ray 11/08/18 17:51 IMPRESSION: COPD with chronic scarring in the lung bases as well as blunting of the costophrenic angle on the right Electronically Signed: Kee Avila DO at 18:18 EDT Tel , Service support , Medications Given Discontinued Medications Albuterol Sulfate (Ventolin Aerosols) 2.5 mg INHALATION Q20M LEFTY Stop: 11/08/18 17:11 Last Admin: 11/08/18 16:47 Dose: 2.5 mg Admin: 11/08/18 16:47 Dose: 2.5 mg Albuterol/Ipratropium (Duoneb) 3 ml INHALATION X1 ONE Stop: 11/08/18 16:29 Last Admin: 11/08/18 16:47 Dose: 3 ml Methylprednisolone (Solu-Medrol) 125 mg IV X1 ONE Stop: 11/08/18 16:29 Last Admin: 11/08/18 16:43 Dose: 125 mg Emergency Department Course and Treatment: Patient presents for worsening shortness of breath over the last 3 days. He was given breathing treatments and Solu-Medrol. EKG showed sinus rhythm with no ischemic changes. Patient had no leukocytosis. He had no significant derangements on his lab work. BNP not significantly elevated.. Troponin negative. Chest x-ray showed findings consistent with COPD. Because patient was also complaining of the abdominal pain, CT the abdomen pelvis was performed that showed no acute process. Patient was feeling much better after receiving the breathing treatments. He continued to be able to speak in full sentences. He has improved breath sounds, now with better air movement and no adventitious sounds noted. Patient was discharged home with strict return precautions. He was discharged with a prescription for azithromycin and a prednisone burst. Treatment Plan: [] Disposition: [] Impression: Severe COPD, acute COPD exacerbation This note was generated with [employer] dictation software. It may contain incorrect words, spelling, and punctuation that were not noted in review of the chart prior to signing ED Disposition - Plan for ED Patient: Disposition: Home or Assisted Living Instructions: ED COPD Flare Prescriptions: RX: Azithromycin [Zithromax Z-Reggie] 250 mg PO UD #1 box RX: predniSONE tablet 60 mg PO DAILY 5 Days #15 tab Referrals: Gerri Griffin, [employer] DES[employer] CONSULTANT-C [Primary Care Provider] - 1-2 Days if not improving Additional Instructions: Take the prednisone for 5 days as prescribed. Take the antibiotic as prescribed. Use your breathing treatments as needed for any wheezing and shortness of breath. If you have any worsening of your condition or any new concerning symptoms, please return immediately to the emergency department for another evaluation.
--- NOTE | 2018-11-08 16:33 | ED.DCSUM_ITS ---
- ER Visit Summary Date of Service: 11/08/18 Chief Complaint: Shortness of breath History of Present Illness: The patient is a 78 M who presents for 3 days of worsening shortness of breath. Patient has a history of COPD and denies history of CHF, although chart review shows he has been diagnosed with CHF. He states over the last 3 days he has gradually had worsening shortness of breath, worse with exertion. He cannot lay flat, but states that has been an issue for a long time. He has associated cough. Denies fever, chest pain. He started having severe diffuse abdominal pain today. He denies any nausea, vomiting or diarrhea. Patient has not recently been on any steroids or antibiotics. He de nies being on any blood thinners. He is a former smoker. He is on home oxygen at 3 L at all times. Physical Examination: Vital signs: afebrile, hemodynamically stable, hypoxia on room air at 88% General: well nourished, well developed, in mild distress Skin: warm, dry, no rash, no pallor HEENT: normocephalic and atraumatic; PERRL, EOMI, moist mucous membranes Cardiovascular: regular rate and rhythm without murmurs, nonpitting peripheral edema, 2+ pulses all distal extremities Respiratory: Mild increased work of breathing, moist cough, lungs are globally diminished, rhonchi noted that will clear with cough, patient speaking in multi word sentences Abdominal: Abdomen is soft, obese, nontender with normoactive bowel sounds, no guarding or rebound, no masses MSK: Moves all extremities, no deformities, normal strength Neuro: Awake and alert, oriented ?4. No facial droop, sensation and motor function intact and symmetric Test Results: Abnormal Lab Results 11/08/18 11/08/18 11/08/18 16:40 16:40 16:40 WBC 9.9 RBC 4.15 L Hgb 11.4 L Hct 35.8 L MCV 86.3 MCH 27.5 MCHC 31.8 L RDW 14.2 RDW Differential 45.1 H Plt Count 257 MPV 10.6 Immature Gran % (Auto) 0.100 Neut % (Auto) 72.2 H Lymph % (Auto) 14.3 L [place] % (Auto) 12.1 H Eos % (Auto) 1.2 Baso % (Auto) 0.1 Absolute Neuts (auto) 7.2 Absolute Lymphs (auto) 1.42 Total Counted Not Reportable Differential Comment SCANNED Platelet Estimate ADEQUATE Sodium 133 L Potassium 3.6 Chloride 96 L Carbon Dioxide 32.0 Anion Gap 5 BUN 18 Creatinine 1.34 H Estim Creat Clear Calc 50.67 Est GFR (MDRD) Af Amer 66 Est GFR (MDRD) Non-Af 55 L BUN/Creatinine Ratio 13.4 Glucose 169 H Calcium 9.2 Total Bilirubin 0.40 AST 11 L ALT 13 L Alkaline Phosphatase 101 Troponin I < 0.015 B-Natriuretic Peptide 107.6 H Total Protein 7.6 Albumin 3.0 L Globulin 4.6 H Albumin/Globulin Ratio 0.7 L Lipase 37 L Clinical Impression(s) from Imaging Studies Abdomen/Pelvis CT 11/08/18 16:29 IMPRESSION: Increased airspace disease in the right lower lobe with some air bronchograms. There is a background of chronic scarring as seen on on exam from April. Superimposed infection cannot be excluded. Atrophy of the kidneys with suspicion for left renal cortex lesion. Nonemergent ultrasound is recommended to further evaluate No acute findings of the small or large bowel. Please note that portions of the large bowel outside of the imaging field for reasons above Electronically Signed: Kee Avila DO at 18:22 EDT Tel , Service support , Chest X-Ray 11/08/18 17:51 IMPRESSION: COPD with chronic scarring in the lung bases as well as blunting of the costophrenic angle on the right Electronically Signed: Kee Avila DO at 18:18 EDT Tel , Service support , Medications Given Discontinued Medications Albuterol Sulfate (Ventolin Aerosols) 2.5 mg INHALATION Q20M LEFTY Stop: 11/08/18 17:11 Last Admin: 11/08/18 16:47 Dose: 2.5 mg Admin: 11/08/18 16:47 Dose: 2.5 mg Albuterol/Ipratropium (Duoneb) 3 ml INHALATION X1 ONE Stop: 11/08/18 16:29 Last Admin: 04/29/19 16:47 Dose: 3 ml Methylprednisolone (Solu-Medrol) 125 mg IV X1 ONE Stop: 11/08/18 16:29 Last Admin: 11/08/18 16:43 Dose: 125 mg Emergency Department Course and Treatment: Patient presents for worsening short ness of breath over the last 3 days. He was given breathing treatments and Solu-Medrol. EKG showed sinus rhythm with no ischemic changes. Patient had no leukocytosis. He had no significant derangements on his lab work. BNP not significantly elevated.. Troponin negative. Chest x-ray showed findings consistent with COPD. Because patient was also complaining of the abdominal pain, CT the abdomen pelvis was performed that showed no acute process. Patient was feeling much better after receiving the breathing treatments. He continued to be able to speak in full sentences. He has improved breath sounds, now with better air movement and no adventitious sounds noted. Patient was discharged home with strict return precautions. He was discharged with a prescription for azithromycin and a prednisone burst. Treatment Plan: [] Disposition: [] Impression: Severe COPD, acute COPD exacerbation This note was generated with ImageSpike dictation software. It may contain incorrect words, spelling, and punctuation that were not noted in review of the chart prior to signing ED Disposition - Plan for ED Patient: Disposition: Home or Assisted Living Instructions: ED COPD Flare Prescriptions: RX: Azithromycin [Zithromax Z-Reggie] 250 mg PO UD #1 box RX: predniSONE tablet 60 mg PO DAILY 5 Days #15 tab Referrals: Gerri Griffin, FIRE FIGHTER [employer] RESCUE-C [Primary Care Provider] - 1-2 Days if not improving Additional Instructions: Take the prednisone for 5 days as prescribed. Take the antibiotic as prescribed. Use your breathing treatments as needed for any wheezing and shortness of breath. If you have any worsening of your condition or any new concerning symptoms, please return immediately to the emergency department for another evaluation.
[2018-11-08] MEDS: MethylPREDNISolone 125 MG/2 ML Vial IV (16:43)
[2018-11-08] MEDS: Albuterol 2.5 MG/3 ML VIAL.NEB. INHALATION ×2 (16:47)
[2018-11-08] MEDS: Ipratropium/Albuterol Sulfate 3 ML AMPUL.NEB INHALATION (16:47)
[2018-11-08 16:48] VITALS: PULSE 78; RESP 18
[2018-11-08 17:14] LABS: Absolute Lymphocyte Count 1.42 X10^3/ul (0.83-4.51); Absolute Neutrophil Count 7.2 X10^3/uL (2.0-7.7); Basophil# 0.01 X10^3/uL; Basophil% 0.1 % (0-1); Eosinophil# 0.12 X10^3/uL; Eosinophils% 1.2 % (0-5); Hematocrit 35.8 % (40-54); Hemoglobin 11.4 g/dl (13.0-16.5); Lymphocyte # 1.42 X10^3/ul (4.0); Lymphocyte % 14.3 % (19-41); Mean Corp Hgb Conc 31.8 g/gl (32-36); Mean Corpuscular Hgb 27.5 pg (27.0-32.0); Mean Corpuscular Volume 86.3 fL (80-94); Mean Platelet Vol. 10.6 fl (6.2-12.0); Monocyte% 12.1 % (0-10); Neutrophil # 7.17 X10^3/uL (2.7-7.7); Neutrophil % 72.2 % (47-70); Platelet Count 257 K/mm3 (150-450); RBC Distribution Width CV 14.2 % (11.6-14.6); RBC Distribution Width SD 45.1 fl (35.1-43.9); Red Blood Count 4.15 M/mm3 (4.6-6.2); White Blood Count 9.9 K/mm3 (4.4-11.0)
[2018-11-08 17:15] LABS: Differential Indicated SCAN CRITERIA MET; POSITIVE COUNT NO; POSITIVE DIFFERENTIAL NO; POSITIVE MORPHOLOGY YES
--- NOTE | 2018-11-08 17:25 | ED.RN ---
Pt gives verbal permission to discuss care plan with family from out of town. Hiw daughter in law, Joceline and his son, Moe.
[2018-11-08 17:30] LABS: ALB/GLOB Ratio 0.7 RATIO (0.9-2.4); AST(SGOT) 11 U/L (15-37); Alanine Aminotransfer ALT/SGPT 13 U/L (16-61); Alkaline Phosphatase 101 U/L (45-117); Anion Gap 5 (5-15); BUN 18 mg/dL (7-18); BUN/Creat Ratio 13.4 RATIO (10-20); Calcium,Total 9.2 mg/dL (8.5-10.1); Chloride 96 mmol/L (98-107); Creatinine, Serum 1.34 mg/dL (0.70-1.30); EST Glomerular Filtration Rate 55 mL/min (>60); Est Glom Filt Rate - Afr Amer 66 mL/min (>60); Estimated Creatinine Clearance 50.67 ml/min; Globulin 4.6 g/dL (2.2-4.2); Glucose 169 mg/dL (74-106); Lipase 37 U/L (73-393); Potassium 3.6 mmol/L (3.5-5.1); Protein, Total 7.6 g/dL (6.4-8.2); Sodium Level 133 mmol/L (136-145)
[2018-11-08 17:44] LABS: BNP,B-Type NATRIURETIC PEPTIDE 107.6 pg/mL (0-100)
--- NOTE | 2018-11-08 17:51 | RAD_ITS ---
STUDY: X-RAY CHEST REASON FOR EXAM: Male, 78 years old. Shortness of breath with dyspnea TECHNIQUE: PA and lateral views of the chest. COMPARISON: 05/10/2018 FINDINGS: There is hyperinflation of the lungs consistent with chronic obstructive lung disease (COPD). Stable chronic scarring in the lung bases. Continued blunting of the right costophrenic angle There is mild cardiac enlargement. Normal mediastinum and venkat. Normal visualized pulmonary arteries. There is atherosclerotic tortuosity of the aortic arch and descending thoracic aorta. There are diffuse degenerative changes of the visualized thoracic spine. Normal visualized ribs, clavicles, and shoulders. There is no demonstrated abnormality of the visualized soft tissue structures of the upper abdomen. RAD/Chest PA and Lateral IMPRESSION: COPD with chronic scarring in the lung bases as well as blunting of the costophrenic angle on the right Electronically Signed: Kee Avila DO at 18:18 EDT Tel , Service support ,
[2018-11-08 18:16] LABS: Differential Comment SCANNED; Platelet Estimate ADEQUATE (ADEQ)
[2018-11-08 18:20] VITALS: BP 160/67; PULSE 92; O2SAT 94
[2018-11-08 19:23] VITALS: BP 162/68; PULSE 91; O2SAT 93
== END 2018-11-08 19:45 | disposition home or self-care (01) ==
PROVIDERS: Emergency Provider Emergency Medicine; Family Provider Nurse Practitioner Adult Health; PCP Nurse Practitioner Adult Health
DX: J44.1 Chronic obstructive pulmonary disease with (acute) exacerbation (principal); R10.84 Generalized abdominal pain; Z79.82 Long term (current) use of aspirin; Z79.899 Other long term (current) drug therapy; Z99.81 Dependence on supplemental oxygen; Z87.891 Personal history of nicotine dependence
CPT/HCPCS: 71046; 74176; 80053; 83690; 83880; 84484; 85025; 93005; 94640; 96374; 99285; A4216

== ENCOUNTER → 2018-11-26 11:09 | Outpatient (CLI) | payer MEDICAID, SELFPAY ==
[2018-11-08 16:15] VITALS: BMI 35.9
[2018-11-26 11:38] LABS: Hematocrit 37.2 % (40-54); Hemoglobin 11.5 g/dl (13.0-16.5); Mean Corp Hgb Conc 30.9 g/gl (32-36); Mean Corpuscular Hgb 27.1 pg (27.0-32.0); Mean Corpuscular Volume 87.7 fL (80-94); Mean Platelet Vol. 11.1 fl (6.2-12.0); Platelet Count 254 K/mm3 (150-450); RBC Distribution Width CV 15.5 % (11.6-14.6); RBC Distribution Width SD 50.2 fl (35.1-43.9); Red Blood Count 4.24 M/mm3 (4.6-6.2); Scan Indicated on CBC? Y/N NO; White Blood Count 4.5 K/mm3 (4.4-11.0)
[2018-11-26 11:46] LABS: AST(SGOT) 13 U/L (15-37); Alanine Aminotransfer ALT/SGPT 16 U/L (16-61); Albumin, Serum 3.2 g/dL (3.2-5.0); Alkaline Phosphatase 78 U/L (45-117); Anion Gap 3 (5-15); BUN 16 mg/dL (7-18); BUN/Creat Ratio 14.2 RATIO (10-20); Calcium,Total 8.9 mg/dL (8.5-10.1); Chloride 105 mmol/L (98-107); Cholesterol 197 mg/dL (200); Creatinine, Serum 1.13 mg/dL (0.70-1.30); EST Glomerular Filtration Rate 67 mL/min (>60); Est Glom Filt Rate - Afr Amer 81 mL/min (>60); Globulin 3.1 g/dL (2.2-4.2); Glucose 114 mg/dL (74-106); High Density Lipoprotein 54 mg/dL; Potassium 4.2 mmol/L (3.5-5.1); Protein, Total 6.3 g/dL (6.4-8.2); Sodium Level 142 mmol/L (136-145); Triglycerides 137 mg/dL; Very Low Density Lipoprotein 27 mg/dL (5-40)
[2018-11-26 11:54] LABS: Vitamin B12 618 pg/mL (211-911)
[2018-11-26 11:58] LABS: Hemoglobin A1c 7.6 % (4.2-6.3)
== END ==
PROVIDERS: Family Provider Nurse Practitioner Adult Health; PCP Nurse Practitioner Adult Health; Visit Provider Nurse Practitioner Adult Health
DX: E11.65 Type 2 diabetes mellitus with hyperglycemia (principal); I10 Essential (primary) hypertension; E78.2 Mixed hyperlipidemia; J41.8 Mixed simple and mucopurulent chronic bronchitis
CPT/HCPCS: 80053; 80061; 82607; 83036; 85027

== ENCOUNTER 2020-06-03 16:57 | Emergency (ER) | payer MEDICARE, SELFPAY ==
[2020-06-03 17:00] VITALS: BP 138/71; PULSE 53; RESP 17; TEMP 36.8; O2SAT 94; BMI 32.0
--- NOTE | 2020-06-03 17:23 | RAD_ITS ---
STUDY: X-RAY - LEFT FOOT CLINICAL: Male, 80 years old. Fell, bruising x2 days. TECHNIQUE: 3 view(s) of the foot. COMPARISON: None. FINDINGS: Normal talus, calcaneus, and tarsal bones. There is widening between the base of the first and second metatarsals suggesting Lisfranc injury. Transverse fractures at the base of the second, third and fourth metatarsals also identified. Normal metatarsi. Normal metatarsophalangeal joint of the great toe. Normal tibial and fibular sesamoid bones. Normal interphalangeal joint of the great toe. Normal phalanges of the great toe. Normal second through fifth metatarsophalangeal joints. Normal interphalangeal joints and phalanges of the lesser toes. There is soft tissue swelling. RAD/Foot min 3 Views IMPRESSION: Nondisplaced fractures of the base of the second through fourth metatarsals. Widening between the first and second metatarsal bases suggesting Lisfranc fracture pattern. Electronically Signed: eMndoza Becker MD (Brooks) at 17:50 EST , Service support ,
--- NOTE | 2020-06-03 17:24 | ED.VISSUMM ---
- ER Visit Summary Date of Service: 06/03/20 Chief Complaint: Fell with left foot injury 3 days ago. History of Present Illness: The patient is a 80 M Struve diabetes, prostate CA with a prior prostatectomy COPD. Prior hip replacement. Patient states that he was at home going to bed 3 days ago. Lost his balance fell landing awkwardly on his left foot. Since that time he said pain trouble walking on it and bruising. His nurse practitioner called and he had some type of outpatient x-ray done in his home which I do not have access to but he may have metatarsal fractures. She sentiment for further evaluation and possible splinting or orthopedic boot. He denies any other injuries when he fell. He did not hit his head. He denies any LOC. He has never broken his foot before and denies any prior foot surgery. Physical Examination: Older male no acute distress vital signs stable afebrile. HEENT exam unremarkable atraumatic. Pupils round reactive light. Scalp nontender. C-spine nontender. Lungs clear to auscultation bilaterally. Heart regular rhythm no murmur. Chest wall nontender pack. Abdomen soft nontender. Obese. Pelvic girdle intact. Extremities moves all 4. His left foot distally just proximal to the toes he has bruising and swelling and tenderness. He can do dorsi plantar flexion. He also has some mild bruising back by the lower heel. No gross bony deformity. He does have touch sensation. Skin is intact. Knee and hip nontender. Neurologically is awake and alert. He is moving all 4 extremities. Test Results: Left foot x-ray 3 views interpreted by myself shows base of the second, third and fourth metatarsal fractures and concern for Lisfranc injury due to widening of the joint space of the metatarsals. Radiologist read the film also and agrees. I went over the x-ray with the patient. Patient placed in a well-padded Ortho-Glass posterior short leg splint by myself. Fabricated by myself. I discussed with the patient he said he has been nonweightbearing for 5 years. He is in a wheelchair. Emergency Department Course and Treatment: Need to obtain an x-ray of the foot because wanted done as an outpatient I do not have the access to. Treatment Plan: Ice and elevate. Tylenol for pain. Keep splint dry and clean. No weightbearing. Follow-up with Dr. Myles Carr of podiatry. Disposition: Discharge Impression: Acute left foot fractures of the base of the second, third and fourth metatarsals. Lisfranc injury Short leg Ortho-Glass posterior splint by ER Status post fall History of diabetes This note was generated with Meez dictation software. It may contain incorrect words, spelling, and punctuation that were not noted in review of the chart prior to signing ED Disposition - Plan for ED Patient: Referrals: Gerri Griffin HYDRAULIC OIL TOOL OPERATOR, HYDRAULIC OIL TOOL OPERATOR-C [Primary Care Provider] -
--- NOTE | 2020-06-03 18:19 | DCINST.ED_ITS ---
ED Disposition - Plan for ED Patient: Disposition: Home or Assisted Living Instructions: ED FOOT FRACTURE Referrals: Gerri Griffin SHUFFLE BOARD OPERATOR, SHUFFLE BOARD OPERATOR-C [Primary Care Provider] - As Needed Myles Carr DPM [STAFF PHYSICIAN] - As soon as possible Additional Instructions: Ice and elevate your foot to decrease pain and swelling. Tylenol for pain. Keep the splint dry and clean. Absolutely no weightbearing. Follow-up with local quartz miner blasting Dr. Myles Carr.
== END 2020-06-03 18:44 | disposition home or self-care (01) ==
PROVIDERS: Emergency Provider Emergency Medicine; PCP Nurse Practitioner Adult Health
DX: S92.322A Displaced fracture of second metatarsal bone, left foot, initial encounter for closed fracture (principal); S92.332A Displaced fracture of third metatarsal bone, left foot, initial encounter for closed fracture; S92.342A Displaced fracture of fourth metatarsal bone, left foot, initial encounter for closed fracture; W01.0XXA Fall on same level from slipping, tripping and stumbling without subsequent striking against object, initial encounter; Y93.9 Activity, unspecified; Y92.009 Unspecified place in unspecified non-institutional (private) residence as the place of occurrence of the external cause; Y99.9 Unspecified external cause status; E11.9 Type 2 diabetes mellitus without complications; J44.9 Chronic obstructive pulmonary disease, unspecified; Z85.46 Personal history of malignant neoplasm of prostate
CPT/HCPCS: 29515; 73630; 99282

== ENCOUNTER → 2020-06-20 16:05 | Outpatient (CLI) | payer MEDICARE, MEDICAID, SELFPAY ==
[2020-06-03 17:00] VITALS: BMI 32.0
--- NOTE | 2020-06-20 16:09 | VDLE_ITS ---
Reason For Study: swelling Procedure LEFT This is a venous duplex using B-mode, color GSV is normal. flow and spectral Doppler. CFV is compressible, spontaneous, phasic, Exam performed in department. competent, and demonstrates normal The study was technically difficult. augmentation. A preliminary report was called and/or faxed FV is compressible, spontaneous, phasic, to Dr. Carr @ [phone] @ 4:35 pm. competent and demonstrates normal augmentation. POP V is compressible, spontaneous, phasic, competent and demonstrates normal augmentation. T/P Trunk is compressible. PTV is compressible. LT PerV is compressible. Interpretation Summary Deep veins of the left lower extremity are patent and compressible segmentally. There is no evidence of left lower extremity deep vein thrombosis. Valvular competence appears intact within the proximal deep venous system on the left . The left great saphenous vein appears patent and compressible segmentally. Ordering Physician: Myles Carr Referring Physician: Gerri Griffin Performed By: Radha Louie, SHERICECS, RVT
== END ==
PROVIDERS: PCP Nurse Practitioner Adult Health; Referring Provider Podiatrist; Visit Provider Podiatrist
DX: M79.89 Other specified soft tissue disorders (principal)
CPT/HCPCS: 93971

== ENCOUNTER 2020-10-19 11:30 | Observation (INO) | payer MEDICARE, MEDICAID, SELFPAY ==
[2020-10-19] VITALS (9 sets, daily range): BP systolic 133–168; BP diastolic 49–90; PULSE 47–71; RESP 14–21; TEMP 36.3–36.6; O2SAT 94–98; BMI 33.2; BMI 32.0
--- NOTE | 2020-10-19 11:39 | EKG12_ITS ---
Test Reason : CP Blood Pressure : / mmHG Vent. Rate : 052 BPM Atrial Rate : 052 BPM P-R Int : 180 ms QRS Dur : 098 ms QT Int : 430 ms P-R-T Axes : 009 047 083 degrees QTc Int : 399 ms Sinus bradycardia with sinus arrhythmia Nonspecific ST abnormality Abnormal ECG Confirmed by LOIS MARIA, GENIE ([id number]), desk editor JUHI JIMENES ([id number]) on 10/24/2020 10:42:20 AM Referred By: RHYS Confirmed By:GENIE ABREU MD
--- NOTE | 2020-10-19 11:39 | RAD_ITS ---
EXAM: XR CHEST, 1 VIEW CLINICAL INDICATION: Chest pain. TECHNIQUE: Frontal view of the chest. This report was created using Wingz report generation technology. COMPARISON: 11/08/2018. FINDINGS: LUNGS AND PLEURAL SPACES: Decrease bibasilar fibrosis. Decreased right pleural fluid. No pneumothorax. HEART: Cardiomegaly is unchanged. MEDIASTINUM: Central airways and mediastinal contour are unremarkable. BONES/JOINTS: Unremarkable. SOFT TISSUES: Unremarkable. RAD/Chest 1 View (Portable) IMPRESSION: 1. No acute cardiopulmonary pathology. 2. Decrease bibasilar fibrosis and decreased right pleural fluid when compared to 11/08/2018. Electronically Signed: Jose Elias Xie MD at 12:56 EDT , Service support ,
--- NOTE | 2020-10-19 11:43 | ED.VIS.CHEST ---
History of Present Illness Chief Complaint: Chest Pain Informant: Patient Narrative: Patient presenting for evaluation secondary to chest pain. Patient has an underlying history of hypertension. Patient states that over the course of the last 2 days he has been getting exertional chest pain. It is a heaviness on his left chest rating down the left arm and is associated with shortness of breath. Patient states that he does not have any prior history of cardiac disease. He denies any history of DVT or PE. No recent infectious signs or symptoms such as fever cough nausea or vomiting. Patient tells me that he is never had a cardiac work-up in the past. Review of systems otherwise negative. Past Medical History - Allergies and Home Meds Allergies/Adverse Reactions: Allergies codeine Adverse Reaction (Verified 10/19/20 11:40) confused lisinopril Adverse Reaction (Verified 10/19/20 11:40) Other BETA DEAN Allergy (Uncoded 10/19/20 11:40) Hives PAIN MEDICATION Allergy (Uncoded 10/19/20 11:40) Itching Primary Care Physician: Gerri Griffin HIGH SCHOOL CHEMISTRY TEACHER, HIGH SCHOOL CHEMISTRY TEACHER-C [Primary Care Provider] - Prior records reviewed: Yes Past Medical History: - - Chronic kidney disease, hypertension, diabetes, past history of prostate cancer Surgical History: total hip arthroplasty, - - Prostate surgery Smoking Status: Former smoker - Family History Maternal Family History: Family History (Last Reviewed 05/25/18 @ 11:11 by Ada Allen HIGH SCHOOL CHEMISTRY TEACHER, HIGH SCHOOL CHEMISTRY TEACHER-C) Brother Leukemia Family History: Reports: - - Patient does not know. Paternal Family History: Family History (Last Reviewed 05/25/18 @ 11:11 by Ada Allen NP, HIGH SCHOOL CHEMISTRY TEACHER-C) Brother Leukemia Family History: Reports: Diabetes Review of Systems All systems negative except as indicated General: Denies: Chills, Fever, Sweats Eyes: Denies: Visual changes - bilaterally, Diplopia ENT: Denies: Rhinorrhea, Sore throat Cardiovascular: Reports: Chest pain Respiratory: Reports: Dyspnea Gastrointestinal: Denies: Abdominal pain, Nausea, Vomiting, Diarrhea, Melena, Hematochezia Genitourinary: Denies: Dysuria, Hematuria, Frequency Musculoskeletal: Denies: Back pain, Extremity Pain Skin: Denies: Rash, Wounds Neurological: Denies: Headache, Weakness, Numbness Physical Exam Vital Signs/Narrative: Vital Signs Temp Pulse Resp BP Pulse Ox 10/19/20 11:32 97.4 F L 54 L 16 133/90 H 97 Inital Vital Signs reviewed: Yes General: Well nourished, Well developed, Obese, No Acute Distress Head: Normocephalic, Atraumatic Eyes: Perrl, EOMI ENT: Moist mucous membranes, No rhinorrhea Neck: Supple, Nontender Cardiovascular: Regular rate, Regular rhythm, No murmurs, - - 2+ radial, 2+ PT pulses bilaterally symmetric Respiratory: No distress, CTA bilaterally, Chest nontender. Negative for: Chest tenderness Abdomen: Soft, Nontender, Nondistended, Normal bowel sounds Back: Nontender, Normal Inspection Extremities: Nontender, No edema Skin: Normal color, No rash Neurological: Alert, Oriented x3, Cranial nerves II-XII grossly intact, Normal Strength, Normal Sensation Psychological: Normal affect, Normal Mood Diagnostic/Tx/Re-eval Chest X-Ray - ED: 1 View, Read by ED Physician, - - Blunting of the costophrenic angles. No evidence of discrete infiltrate at Laboratory Data 10/19/20 10/19/20 12:08 12:08 WBC 6.4 RBC 4.36 L Hgb 12.1 L Hct 39.4 L MCV 90.4 MCH 27.8 MCHC 30.7 L RDW Std Deviation 46.4 H RDW Coeff of Mere 14.0 Plt Count 223 MPV 10.4 Immature Gran % (Auto) 0.200 Neut % (Auto) 57.7 Lymph % (Auto) 24.6 [place] % (Auto) 11.4 H Eos % (Auto) 5.8 H Baso % (Auto) 0.3 Absolute Neuts (auto) 3.7 Absolute Lymphs (auto) 1.58 Nucleated RBC % 0 Sodium 141 Potassium 3.7 Chloride 105 Carbon Dioxide 31.0 Anion Gap 5 BUN 25 H Creatinine 1.53 H Estim Creat Clear Calc 42.97 Est GFR (MDRD) Af Amer 57 L Est GFR (MDRD) Non-Af 47 L BUN/Creatinine Ratio 16.3 Glucose 78 Calcium 9.3 Troponin I < 0.015 - EKG Initial EKG Interpretation: - - Sinus bradycardia with a rate of 52, ST segment depressions are noted laterally that are mildly exaggerated from prior EKG in 2019, but were present. No evidence of abnormal T wave changes or ST elevation. No evidence of heart block. - Medical Decision Making Patient presented secondary to chest pain. EKG demonstrated some subtle ST depressions. Patient's troponin was found to be negative, creatinine was 1.5 work-up otherwise was unremarkable chest x-ray shows some blunting of the costophrenic angles but no other evidence of acute pathology by my personal interpretation. Patient's heart score is a 6 and maybe even a 7 I believe that he requires admission. He is not having active chest pain, this does not seem to be a presentation of acute coronary syndrome. Patient will be admitted to the hospitalist. ED Disposition - Plan for ED Patient: Disposition: Acute Care Hospital [facility] Diagnosis: Chest pain, Acute electrocardiogram changes
[2020-10-19 12:12] LABS: Absolute Lymphocyte Count 1.58 X10^3/uL (0.83-4.51); Absolute Neutrophil Count 3.7 X10^3/uL (2.0-7.7); Basophil# 0.02 X10^3/uL; Basophil% 0.3 % (0-1); Eosinophil# 0.37 X10^3/uL; Eosinophils% 5.8 % (0-5); Hematocrit 39.4 % (40-54); Hemoglobin 12.1 g/dL (13.0-16.5); Lymphocyte # 1.58 X10^3/ul (4.0); Lymphocyte % 24.6 % (19-41); Mean Corp Hgb Conc 30.7 g/dL (32-36); Mean Corpuscular Hgb 27.8 pg (27.0-32.0); Mean Corpuscular Volume 90.4 fL (80-94); Mean Platelet Vol. 10.4 fl (6.2-12.0); Monocyte# 0.73 X10^3/uL; Monocyte% 11.4 % (0-10); NRBC Flagged by Analyzer 0 % (0-5); Neutrophil # 3.71 X10^3/uL (2.7-7.7); Neutrophil % 57.7 % (47-70); Platelet Count 223 K/mm3 (150-450); RBC Distribution Width SD 46.4 fl (35.1-43.9); Red Blood Count 4.36 M/mm3 (4.6-6.2); White Blood Count 6.4 K/mm3 (4.4-11.0)
[2020-10-19 12:30] LABS: Anion Gap 5 (5-15); BUN 25 mg/dL (7-18); BUN/Creat Ratio 16.3 RATIO (10-20); Calcium,Total 9.3 mg/dL (8.5-10.1); Chloride 105 mmol/L (98-107); Creatinine, Serum 1.53 mg/dL (0.70-1.30); EST Glomerular Filtration Rate 47 mL/min (>60); Est Glom Filt Rate - Afr Amer 57 mL/min (>60); Estimated Creatinine Clearance 42.97 ml/min; Glucose 78 mg/dL (74-106); Potassium 3.7 mmol/L (3.5-5.1); Sodium Level 141 mmol/L (136-145)
--- NOTE | 2020-10-19 13:07 | HP.PCM_ITS ---
Problem List (1) Atypical chest pain Status: Acute (2) YOGI (obstructive sleep apnea) Status: Resolved (3) History of hip surgery Status: Resolved (4) Prostate cancer Status: Resolved (5) Bilateral pneumonia Status: Acute (6) Morbid obesity Status: Chronic (7) Dyslipidemia Status: Chronic (8) DM type 2 (diabetes mellitus, type 2) Status: Chronic (9) Chronic respiratory failure Status: Chronic Qualifiers: Respiratory failure complication: hypoxia and hypercapnia Qualified Code(s): J96.11 - Chronic respiratory failure with hypoxia; J96.12 - Chronic respiratory failure with hypercapnia (10) Chronic obstructive lung disease Status: Chronic Qualifiers: COPD type: unspecified COPD Qualified Code(s): J44.9 - Chronic obstructive pulmonary disease, unspecified (11) CKD (chronic kidney disease), stage III Status: Chronic History of Present Illness Date of Admission: 10/19/20 Chief Complaint: Atypical chest pain/shortness of breath for few days The patient is a 80 year old M with multiple comorbidities as listed above including COPD on 3 L of home oxygen came to ER with atypical chest pain for 3 days. He feels intermittently with radiation to left shoulder blade, 5/6 intensity, gets worse on exertion. At rest is not short of breath but has dyspnea on exertion. There is no increase in frequency or severity of cough, sputum production. No fever or chills. Was last admitted in April 2018 for acute on chronic combined respiratory failure, COPD expression due to bilateral pneumonia In ED, triage vitals shows BP 133/90, pulse ox 97% on room air. EMS EKG shows sinus bradycardia at 56/min. EKG in ER sinus bradycardia [address]-T abnormality. QTC 399 ms. Previous EKG in October 2018 shows normal sinus rhythm at 77 bpm. First troponin negative. Patient has CKD and creatinine is elevated 1.53 more than baseline around 1.1?1.3 in November 2018 Past Medical History Past Medical History (Chronic Problems): Chronic Problems (Last Reviewed 05/25/18 @ 11:11 by Ada Allen MUSIC BOX MECHANIC, MUSIC BOX MECHANIC-C) Morbid obesity (Chronic) Dyslipidemia (Chronic) DM type 2 (diabetes mellitus, type 2) (Chronic) Chronic respiratory failure (Chronic) Chronic obstructive lung disease (Chronic) CKD (chronic kidney disease), stage III (Chronic) Medical History: Medical History (Last Reviewed 05/25/18 @ 11:11 by Ada Allen MUSIC BOX MECHANIC, MUSIC BOX MECHANIC-C) Prostate cancer (Resolved) C61 Bilateral pneumonia (Acute) J18.9 Shortness of breath (Acute) R06.02 Morbid obesity (Chronic) E66.01 Dyslipidemia (Chronic) E78.5 DM type 2 (diabetes mellitus, type 2) (Chronic) E11.9 Chronic respiratory failure (Chronic) J96.10 Chronic obstructive lung disease (Chronic) J44.9 CKD (chronic kidney disease), stage III (Chronic) Allergies codeine Adverse Reaction (Verified 10/19/20 11:40) confused lisinopril Adverse Reaction (Verified 10/19/20 11:40) Other BETA DEAN Allergy (Uncoded 10/19/20 11:40) Hives PAIN MEDICATION Allergy (Uncoded 10/19/20 11:40) Itching Home Medications: Ambulatory Orders Medication Instructions Recorded Budesonide/Formoterol 160/4.5 2 puff INHALATION BID 09/01/13 [Symbicort 160/4.5 Mcg Inhaler (SP)] Furosemide [Lasix] 80 mg PO QODAY 09/01/13 Gabapentin [Neurontin] 800 mg PO QHS 09/01/13 NIFEdipine [Procardia XL] 90 mg PO DAILY 09/01/13 Tiotropium [place] [Spiriva 18 MCG] 1 puff INHALATION DAILY 09/01/13 Albuterol Inhaler [Ventolin Hfa] 1 - 2 puff INHALATION Q6H PRN PRN 05/01/14 Bimatoprost [Lumigan Opthalmic] 1 drp EACH EYE QHS 05/01/14 Ipratropium/Albuterol Sulfate 3 ml INHALATION Q6HWA.RT 05/01/14 [Duoneb] Ascorbic Acid [Vitamin C] 1,000 mg PO DAILY@0800 07/28/15 Multivitamin [Daily Multiple 1 ea PO DAILY 07/28/15 Vitamin] Aspirin [Aspirin, Baby] 81 mg PO DAILY@0800 10/28/15 Calcium Carbonate/Vitamin D3 1 ea PO DAILY 10/28/15 [Oyster Shell 500-Vit D3 200 Tb] Fish Oil 2,000 mg PO BID 10/28/15 Olopatadine HCl [Patanol] 1 drp EACH EYE BID 10/28/15 Famotidine 20 mg PO QHS 05/10/18 Furosemide [Lasix] 60 mg PO QODAY 05/10/18 Guaifenesin [Mucinex] 600 mg PO BID 05/10/18 Polyethylene Glycol 3350 [Miralax] 17 gm PO DAILY 05/10/18 traMADol [Ultram] 50 mg PO QHS 05/10/18 Dorzolamide HCl/Pf [Dorzolamide 2% 1 drp OP BID 05/11/18 Eye Drop] Dicyclomine HCl 20 mg PO DAILY 09/13/20 Gabapentin 300 mg PO TID 09/13/20 Lactobacillus Acidophilus 1 cap PO DAILY 09/13/20 Omeprazole 20 mg PO BID 09/13/20 Senokot 8.6 - 50 mg PO PRN PRN 09/13/20 SimETHICONE 80 mg PO PRN PRN 09/13/20 Singulair 10 mg PO BID 09/13/20 metFORMIN (XR) 500 mg PO BID 09/13/20 Surgical History: Surgical History (Last Reviewed 05/25/18 @ 11:11 by Ada Allen MUSIC BOX MECHANIC, MUSIC BOX MECHANIC-C) History of hip surgery (Resolved) Z98.890 Surgical History: total hip arthroplasty, - - Prostate surgery Psychiatric History: No pertinent psych hx Smoking Status: Former smoker - *Family History Maternal Family History: Family History (Last Reviewed 05/25/18 @ 11:11 by Ada Allen NP, MUSIC BOX MECHANIC-C) Brother Leukemia History Items: - - Patient does not know. Paternal Family History: Family History (Last Reviewed 05/25/18 @ 11:11 by Ada Allen NP, MUSIC BOX MECHANIC-C) Brother Leukemia History Items: Diabetes Review of Systems Constitutional: Denies: Chills, Fever, Weight Change HEENT: Reports: Difficulty Hearing. Denies: Difficulty Swallowing, Dysphasia, Head Aches, Sinus Congestion, Sinus Drainage Cardiovascular: Reports: Chest Pain, Chest Tightness. Denies: Edema, Palpitations Respiratory: Reports: Cough - Mild baseline occasional cough from COPD, Shortne ss of breath upon exertion. Denies: Shortness of breath at rest, Sputum production Gastrointestinal: Denies: Abdominal Pain, Hematemesis, Hematochezia, Nausea, Melena, Vomiting Genitourinary: Denies: Dysuria, Frequency Musculoskeletal: Reports: Joint Pain, Joint stiffness, Joint swelling, Joint Tenderness Skin: Denies: Rash, Wounds Neurological: Reports: Balance problems, Incoordination. Denies: Focal weakness, Numbness, Tingling Psychiatric: Denies: Anxiety, Depression, Homicidal Ideations, Suicidal Ideations Hematologic/ Lymphatic: Denies: Easy Bruising, Easy Bleeding VTE Information - Inpt Only VTE Present on Admission: No VTE Mechan Device Prophylaxis: None VTE Pharm Prophylaxis ordered?: Yes Patient Problems: Active and Suspected Problems (Last Reviewed 05/25/18 @ 11:11 by Ada Allen MUSIC BOX MECHANIC, MUSIC BOX MECHANIC-C) Atypical chest pain (Acute) Bilateral pneumonia (Acute) Objective: Physical exam: General: Alert, Oriented x3, Cooperative HEENT: Atraumatic, PERRLA, EOMI, Normocephalic Oral: No Gingival or Mucosal Lesions/ Ulcerations Neck: Supple, No JVD, Negative Carotid Bruits Lungs: Air entry diminished in bilateral lung bases. No crepitation/rhonchi. No hypoxia/tachypnea Cardiovascular: Sinus bradycardia normal S1, Normal S2, No murmurs Abdomen: Bowel Sounds Present, Soft, Non Tender, Non-Distended : No renal angle tenderness. No suprapubic tenderness. Extremities: No edema, Capillary Refill Less than 3 Seconds Skin: No rashes, No breakdown Musculoskeletal: Mild tenderness in bilateral knee joints. ROM restricted at hip and knee joints secondary to arthritis. Neurological: Cranial nerves II-XII grossly intact, Deep Tendon Reflexes 2+/4 and Symmetrical, Neuro grossly intact Psych/Mental Status: Normal Affect, Appropriate. - Physical Exam Vitals/I&O's: Vital Signs Temp Pulse Resp BP Pulse Ox 97.4 F L 48 L 21 H 147/49 H 94 10/19/20 11:32 10/19/20 12:59 10/19/20 12:59 10/19/20 12:59 10/19/20 12:59 Oxygen Delivery Method Room Air Weight: 244 lb 11.41 oz Body Mass Index (BMI) 33.2 Laboratory Results 10/19/20 12:08: WBC 6.4, RBC 4.36 L, Hgb 12.1 L, Hct 39.4 L, MCV 90.4, MCH 27.8, MCHC 30.7 L, RDW Std Deviation 46.4 H, RDW Coeff of Mere 14.0, Plt Count 223, MPV 10.4, Immature Gran % (Auto) 0.200, Neut % (Auto) 57.7, Lymph % (Auto) 24.6, [place] % (Auto) 11.4 H, Eos % (Auto) 5.8 H, Baso % (Auto) 0.3, Absolute Neuts (auto) 3.7, Absolute Lymphs (auto) 1.58, Nucleated RBC % 0 10/19/20 12:08: Sodium 141, Potassium 3.7, Chloride 105, Carbon Dioxide 31.0, Anion Gap 5, BUN 25 H, Creatinine 1.53 H, Estim Creat Clear Calc 42.97, Est GFR (MDRD) Af Amer 57 L, Est GFR (MDRD) Non-Af 47 L, BUN/Creatinine Ratio 16.3, Glucose 78, Calcium 9.3, Troponin I < 0.015 Assessment/Plan All Active Problems (Last Reviewed 05/25/18 @ 11:11 by Ada Allen MUSIC BOX MECHANIC, MUSIC BOX MECHANIC- C) Atypical chest pain (Acute) Bilateral pneumonia (Acute) History of hip surgery (Resolved) YOGI (obstructive sleep apnea) (Resolved) Prostate cancer (Resolved) The patient is a 80 year old M with multiple comorbidities as listed above including COPD on 3 L of home oxygen came to ER with atypical chest pain for 3 days. In ED, EMS EKG shows sinus bradycardia at 56/min. EKG in ER sinus bradycardia [address]-T abnormality. QTC 399 ms. Previous EKG in October 2018 shows normal sinus rhythm at 77 bpm. First troponin negative. 1. Atypical chest pain with history of chronic diastolic heart failure/HFpEF: Patient is being admitted in PCU. INEZ risk score 4. Serial troponin enzymes. Repeat EKG. Treadmill nuclear stress test tomorrow a.m if troponins negative. Continue baby aspirin, atorvastatin. Fasting profile and TSH tomorrow a.m. 2. Diabetes mellitus type 2: 3. Hypertension: Patient lost 50 to 60 pounds in the last 1 to 2 years. Blood pressure is improved, 133/90?155/67, considered acceptable to his age and comorbidities 4. Dyslipidemia 5. COPD: Patient was on home oxygen 3 L. In ED, no hypoxia or tachypnea. COPD stable does not have clinical criteria of COPD exacerbation. Continue maintenance inhaler and albuterol nebulizer as needed for shortness of breath 6. Acute kidney injury on CKD stage IIIa: creatinine is elevated 1.53 more than baseline around 1.1?1.3 in November 2018. Monitor BMP tomorrow a.m. 7. Other comorbidities include bilateral knee and hip joints arthritis, prostate cancer status post prostatectomy in the past, in remission VTE prophylaxis: Lovenox 40 mg subcu daily. Living will/advanced directive/end of life care: Patient does not have living will or advanced directive. His is power of supervisor properties for health after discussion of benefits/risks procedures involved with full code, DNR CC arrest and DNR CC, the patient opted for DNR-CC Arrest with no intubation Patient does not want artificial life support including intubation, tube feed, ventilator and/chest compression, central venous catheter, vasopressor and DC shock if needed Total time spent in [id number] encounter in discussion of advanced directive 16 minutes. OBSV E&M: 01253 Initial observation care L3 Procedures: 43135 Advncd Care Plan 30 Min
--- NOTE | 2020-10-19 14:02 | EKG12_ITS ---
Test Reason : CP Blood Pressure : / mmHG Vent. Rate : 050 BPM Atrial Rate : 050 BPM P-R Int : 180 ms QRS Dur : 098 ms QT Int : 474 ms P-R-T Axes : 033 066 080 degrees QTc Int : 432 ms Sinus bradycardia with Premature atrial complexes in a pattern of bigeminy Otherwise normal ECG When compared with ECG of 19-OCT-2020 14:17, MANUAL COMPARISON REQUIRED, DATA IS UNCONFIRMED Confirmed by LOIS MARIA, GENIE ([id number]), editor in chief JUHI JIMENES ([id number]) on 10/24/2020 1:24:51 PM Referred By: VALERY Confirmed By:GENIE ABREU MD
[2020-10-19 14:28] LABS: Magnesium 2.2 mg/dL (1.6-2.6)
[2020-10-19] MEDS: Enoxaparin 40 MG/0.4 ML Syringe SC (17:12)
[2020-10-19 17:16] LABS: Bedside Glucose 128 mg/dL (70-110)
[2020-10-19] MEDS: Ipratropium/Albuterol Sulfate 3 ML AMPUL.NEB INHALATION (19:53)
[2020-10-19] MEDS: Losartan Potassium 50 MG Tablet PO (19:57)
[2020-10-19] MEDS: Gabapentin 300 MG Capsule PO (21:12)
[2020-10-19] MEDS: Gabapentin 800 MG Tablet PO (21:12)
[2020-10-19] MEDS: guaiFENesin 600 MG Tablet PO (21:12)
[2020-10-19] MEDS: Senna/Docusate Sodium 1 Tablet 2 TABLET PO (21:13)
[2020-10-19] MEDS: Atorvastatin Calcium 40 MG Tablet PO (21:13)
[2020-10-19] MEDS: Dorzolamide 2% 10ml Bottle 1 DRP OPHTHALMIC (22:19)
[2020-10-19] MEDS: Latanoprost 0.005% 1 Bottle 1 DRP EACH EYE (22:19)
[2020-10-20] VITALS (10 sets, daily range): BP systolic 120–160; BP diastolic 42–66; PULSE 39–68; RESP 16–20; TEMP 36.9; O2SAT 93–100
[2020-10-20] MEDS: Acetaminophen 325 MG Tablet 650 MG PO
[2020-10-20] MEDS: Morphine 2 MG/ML Syringe IV (02:24)
[2020-10-20] MEDS: 0.9% Saline Lock 10 ML Syringe IV (02:25)
--- NOTE | 2020-10-20 05:55 | EKG12_ITS ---
Test Reason : CHEST PAIN Blood Pressure : / mmHG Vent. Rate : 049 BPM Atrial Rate : 049 BPM P-R Int : 134 ms QRS Dur : 102 ms QT Int : 462 ms P-R-T Axes : 022 057 072 degrees QTc Int : 417 ms Sinus bradycardia with Premature supraventricular complexes Nonspecific ST abnormality Abnormal ECG When compared with ECG of 19-OCT-2020 11:39, MANUAL COMPARISON REQUIRED, DATA IS UNCONFIRMED Confirmed by LOIS MARIA, GENIE ([id number]), subeditor JUHI JIMENES ([id number]) on 10/24/2020 1:26:07 PM Referred By: VALERY Confirmed By:GENIE ABREU MD
[2020-10-20] MEDS: Losartan Potassium 50 MG Tablet PO (06:16)
[2020-10-20] MEDS: Aspirin E.C. 81 MG Tablet PO (06:16)
[2020-10-20] MEDS: Budesonide Respules 0.5 MG/2 ML AMPUL.NEB. INHALATION (07:38)
[2020-10-20] MEDS: Albuterol 2.5 MG/3 ML VIAL.NEB. INHALATION (07:38)
[2020-10-20 08:05] LABS: Anion Gap 2 (5-15); BUN 28 mg/dL (7-18); BUN/Creat Ratio 18.7 RATIO (10-20); Calcium,Total 9.1 mg/dL (8.5-10.1); Chloride 106 mmol/L (98-107); Cholesterol 159 mg/dL (200); EST Glomerular Filtration Rate 48 mL/min (>60); Est Glom Filt Rate - Afr Amer 58 mL/min (>60); Estimated Creatinine Clearance 43.83 ml/min; Glucose 91 mg/dL (74-106); High Density Lipoprotein 56 mg/dL; Potassium 4.1 mmol/L (3.5-5.1); Sodium Level 140 mmol/L (136-145); Thyroid Stim Hormone (TSH) 2.57 uIU/mL (0.358-3.74); Triglycerides 76 mg/dL; Very Low Density Lipoprotein 15 mg/dL (5-40)
[2020-10-20] MEDS: Polyethylene Glycol 3350 17 GM PACKET PO (11:18)
[2020-10-20] MEDS: Calcium Carb/Vitamin D 1 TABLET Tablet PO (11:19)
[2020-10-20] MEDS: Dicyclomine 10 MG Capsule 20 MG PO (11:19)
[2020-10-20] MEDS: Ascorbic Acid 500 MG Tablet 1000 MG PO (11:19)
[2020-10-20] MEDS: guaiFENesin 600 MG Tablet PO (11:19)
[2020-10-20] MEDS: Fluticasone 0.05% 1 SPRAY NASAL.SRY NASAL (11:19)
[2020-10-20] MEDS: Pantoprazole Sodium 20 MG Tablet PO (11:20)
[2020-10-20] MEDS: Gabapentin 300 MG Capsule 600 MG PO (11:21)
[2020-10-20] MEDS: Dorzolamide 2% 10ml Bottle 1 DRP OPHTHALMIC (11:22)
--- NOTE | 2020-10-20 11:53 | PCM.DC ---
- Discharge Diagnoses Current Active Problems: Current Active and Chronic Problems (Last Reviewed 05/25/18 @ 11:11 by Ada Allen AUDIT MACHINE OPERATOR, AUDIT MACHINE OPERATOR-C) Atypical chest pain (Acute) Bilateral pneumonia (Acute) Morbid obesity (Chronic) Dyslipidemia (Chronic) DM type 2 (diabetes mellitus, type 2) (Chronic) Chronic respiratory failure (Chronic) Chronic obstructive lung disease (Chronic) CKD (chronic kidney disease), stage III (Chronic) You will use the following diet at home:: Calorie/Carbohydrate Controlled (specify 1200, 1400, etc) - 1800 ADA diet, Cardiac Your food should be the consistency of: Regular Discharge Activity: May Not Drive Weight Bearing Status: Weight bearing as tolerated Call your doctor if you observe: Fever of 101 or Higher, Coldness, Increased Pain, Numbness or Tingling, Change in Color, Inability to urinate, Inability to have a bowel movement, Shortness of breath, Dizziness, Fainting spells, Swelling in the ankles, Chest pain, Prolonged hiccoughing, Increased palpitations (irregular heartbeat), Calf discomfort, Uncontrolled pain Allergies/Adverse Reactions: Allergies codeine Adverse Reaction (Verified 10/19/20 11:40) confused lisinopril Adverse Reaction (Verified 10/19/20 11:40) Other BETA DEAN Allergy (Uncoded 10/19/20 11:40) Hives PAIN MEDICATION Allergy (Uncoded 10/19/20 11:40) Itching Medications to take at Discharge Budesonide/Formoterol 160/4.5 [Symbicort 160/4.5 Mcg Inhaler (SP)] 2 puff INHALATION BID 09/01/13 Albuterol Inhaler [Ventolin Hfa] 1 - 2 puff INHALATION Q6H PRN PRN 05/01/14 Bimatoprost [Lumigan Opthalmic] 1 drp EACH EYE QHS 05/01/14 Ipratropium/Albuterol Sulfate [Duoneb] 3 ml INHALATION Q6HWA.RT 05/01/14 Ascorbic Acid [Vitamin C] 1,000 mg PO DAILY@0800 07/28/15 Aspirin [Aspirin, Baby] 81 mg PO DAILY@0800 10/28/15 Olopatadine HCl [Patanol] 1 drp EACH EYE DAILY 10/28/15 Guaifenesin [Mucinex] 600 mg PO BID@0800,199905/10/18 Polyethylene Glycol 3350 [Miralax] 17 gm PO DAILY 05/10/18 traMADol [Ultram] 50 mg PO QHS 05/10/18 Dorzolamide HCl/Pf [Dorzolamide 2% Eye Drop] 1 drp OP BID 05/11/18 Calcium Carbonate/Vitamin D3 [Oyster Shell 500-Vit D3 200 Tb] 1 tablet PO DAILY@0800 10/19/20 Cyclosporine [Restasis Multidose] 1 drp EACH EYE BID 10/19/20 Dicyclomine HCl 20 mg PO BID@0800,1600 10/19/20 Fluticasone 0.05% [Flonase Nasal [place]] 1 spray NASAL BID 10/19/20 Furosemide [Lasix] 80 mg PO QODAY@0800 10/19/20 Gabapentin 300 mg PO QHS@199910/19/20 Gabapentin 600 mg PO BID@0800,1600 10/19/20 Gabapentin 800 mg PO QHS@199910/19/20 Losartan Potassium 50 mg PO DAILY@0800 10/19/20 Metformin HCl 500 mg PO BIDCM@0800,1600 10/19/20 Montelukast [Singulair] 10 mg PO DAILY@1600 10/19/20 Multivitamin with Minerals [Multiple Vitamin] 1 tablet PO DAILY@0800 10/19/20 [place] [facility]-3 Fatty Acids/Fish Oil [Fish Oil 1,000 mg Capsule] 2 capsule PO BID@0800,1600 10/19/20 Omeprazole [Prilosec] 20 mg PO DAILY@0800 10/19/20 Sennosides/Docusate Sodium [Senna-S Tablet] 2 tablet PO QHS@199910/19/20 Sodium Chloride 0.65% [[place] Nasal [place]] 2 spray NASAL Q2H PRN 10/19/20 Tiotropium [place] [Spiriva Respimat] 1 puff INHALATION DAILY 10/19/20 Furosemide [Lasix] 40 mg PO QODAY@0800 #0 10/20/20 Primary Care Physician: Gerri Griffin AUDIT MACHINE OPERATOR, AUDIT MACHINE OPERATOR-C [Primary Care Provider] - Please follow up with your Primary Care Physician in: in 2 weeks Test Results: Test results from this visit will be discussed in further detail at your follow-up appointment, if applicable.
--- NOTE | 2020-10-20 12:38 | STRESSREP_ITS ---
Stress Test Report Date: 10-20-2020 Procedure: Pharmacologic stress nuclear imaging study Indications: Chest pain Consent: Per the patient Procedure: The patient underwent pharmacologic (Regadenoson 0.4mg ) evaluation with a peak heart rate of 78 beats per minute (55%predicted maximal heart rate) and a peak blood pressure of 148/62 mmHg. The baseline ECG demonstrated sinus rhythm; PVC. The peak pharmacologic ECG demonstrated no obvious ECG changes. There was an isolated PVC pretest. There was no complaint of chest discomfort during pharmacologic infusion or recovery. The examination was discontinued secondary to completion of protocol. Impression: 1. Pharmacologic (Regadenoson) evaluation 2. Peak pharmacologic ECG with no obvious ECG changes. 3. There was an isolated PVC pretest. 4. Nuclear images pending Myocardial perfusion imaging study: Technique: The patient was injected with 13.5 millicuries of technetium 99m Cardiolite and subsequently rest SPECT Cardiolite nuclear imaging was obtained in the horizontal long, vertical long, and short axis views. The patient underwent pharmacologic (Regadenoson) evaluation with a peak heart rate of 78 beats per minute (55% percent predicted maximal heart rate) and a peak blood pressure of 148/62 mmHg. The patient was injected with 42.0 millicuries of technetium 99m Cardiolite and subsequently stress SPECT Cardiolite nuclear imaging was obtained in the horizontal long, vertical long, and short axis views. A gated Cardiolite study at peak stress was obtained. Interpretation: Rest and stress SPECT Cardiolite nuclear imaging status post realignment, normalization, and attenuation correction demonstrate a small area of subtle diminished tracer uptake near the apical segments without significant change between rest and stress. There is end systolic thickening and brightening. The gated Cardiolite study demonstrates myocardial thickening and inward wall motion. The reported LVEF is 63 %. Impression: 1. Rest and stress by current nuclear imaging demonstrate myocardial perfusion appearing compatible with physiologic apical thinning with no myocardial perfusion changes considered diagnostic for associated stress-induced myocardial ischemia. 2. The gated Cardiolite study reports an LVEF of 63%. This note was generated with [employer] software. It may contain incorrect words, spelling, and punctuation that were not noted in checking the note before signing.
--- NOTE | 2020-10-20 12:56 | DS.PCM_ITS ---
Discharge Date and Diagnosis - Problem List Patient Problems: Active and Suspected Problems (Last Updated 10/20/20 @ 17:[address] Denilson Ortez MD) Atypical chest pain (Acute) Date of Admission: 10/19/20 Date of Discharge: 10/20/20 - Primary Discharge Diagnosis Acute Problems: Active Problems (Last Reviewed 05/25/18 @ 11:11 by Ada Allen SCHOOL PSYCHOLOGICAL EXAMINER, SCHOOL PSYCHOLOGICAL EXAMINER-C) Atypical chest pain (Acute) No pneumonia. - Secondary Discharge Diagnosis Chronic Problems: Chronic Problems (Last Reviewed 05/25/18 @ 11:11 by Ada Allen SCHOOL PSYCHOLOGICAL EXAMINER, SCHOOL PSYCHOLOGICAL EXAMINER-C) Morbid obesity (Chronic) Dyslipidemia (Chronic) DM type 2 (diabetes mellitus, type 2) (Chronic) Chronic respiratory failure (Chronic) Chronic obstructive lung disease (Chronic) CKD (chronic kidney disease), stage III (Chronic) Hospital Course and Treatment Imaging Results: 10/20/20 05:55 Nuclear Stress Test - Chemical [NM] AM (NON MEDS) Operations: None Summary of Care Provided: [] The patient is a 80 year old M with multiple comorbidities as listed above including COPD on 3 L of home oxygen came to ER with atypical chest pain for 3 days. In ED, EMS EKG shows sinus bradycardia at 56/min. EKG in ER sinus bradycardia [address]-T abnormality. QTC 399 ms. Previous EKG in October 2018 shows normal sinus rhythm at 77 bpm. First troponin negative. 1. Atypical chest pain with history of chronic diastolic heart failure/HFpEF: Patient is being admitted in PCU. INEZ risk score 4. Serial troponin enzymes are negative. Repeat EKG does not show any changes suggestive of new ischemia. Treadmill nuclear stress was done is negative for acute ischemia. Fasting profile shows LDL 88, HDL 56. TSH normal. 2. Diabetes mellitus type 2: Was in normal range 3. Hypertension: Patient lost 100 pounds in 1.5 years. Blood pressure on baseline 4. Dyslipidemia: Fasting profile as mentioned above patient is on fish oil. LDL at goal. 5. COPD: Patient was on home oxygen 3 L. In ED, no hypoxia or tachypnea. COPD stable does not have clinical criteria of COPD exacerbation. Continue maintenance inhaler and albuterol nebulizer as needed for shortness of breath 6. Acute kidney injury on CKD stage IIIa: creatinine is elevated 1.53 more than baseline around 1.1?1.3 in November 2018. Creatinine similar as yesterday. Lasix dose decreased to 40 mg daily alternating with 80 mg daily next day. 7. Other comorbidities include bilateral knee and hip joints arthritis, prostate cancer status post prostatectomy in the past, in remission VTE prophylaxis: Lovenox 40 mg subcu daily. Discharge medication reconciliation done. Discharge follow-up instructions completed. Discharge process discussed with the patient and all questions were answered to patient's satisfaction. Total time spent, exact 35 minutes on discharge meds reconciliation, examination, coordination of care with nurses and ancillary staff, review of imaging and blood test and discussion with the patient on follow-up instructions Patient Problems: Active and Suspected Problems (Last Updated 10/20/20 @ 17:[address] Denilson Ortez MD) Atypical chest pain (Acute) - Physical Exam Vitals/I&O's: Vital Signs Temp Pulse Resp BP Pulse Ox 98.5 F 63 16 160/66 H 93 10/20/20 11:27 10/20/20 11:27 10/20/20 11:27 10/20/20 11:27 10/20/20 11:27 Oxygen Flow Rate (L/min) 2 Oxygen Delivery Method Room Air Weight: 236 lb 1.6 oz Body Mass Index (BMI) 32.0 Intake and Output for Last 24 Hours 10/18/20 10/19/20 10/20/20 23:59 23:59 23:59 Intake Total 960 / 960 500 / 500 Output Total 700 / 700 500 / 500 Balance 260 / 260 0 / 0 Laboratory Results 10/19/20 12:08: Magnesium 2.2 10/19/20 14:40: Troponin I < 0.015 10/19/20 17:10: POC Glucose 128 H 10/19/20 18:27: Troponin I < 0.015 10/20/20 06:09: Sodium 140, Potassium 4.1, Chloride 106, Carbon Dioxide 32.0, Anion Gap 2 L, BUN 28 H, Creatinine 1.50 H, Estim Creat Clear Calc 43.83, Est GFR (MDRD) Af Amer 58 L, Est GFR (MDRD) Non-Af 48 L, BUN/Creatinine Ratio 18.7, Glucose 91, Calcium 9.1, Triglycerides 76, Cholesterol 159, LDL Cholesterol 88, VLDL Cholesterol 15, HDL Cholesterol 56, TSH 2.57 Current Medications Acetaminophen (Acetaminophen 325 Mg Tablet) 650 mg PO Q6H PRN PRN PRN Reason: Pain Score 1-10/Temp > 100.7 F Last Admin: 10/20/20 00:00 Dose: 650 mg Documented by: Al Hydroxide/Mg Hydroxide (Mag Hydrox/Al Hydrox/Simeth 30 Ml Udc) 30 ml PO Q6H PRN PRN PRN Reason: Gastric Burning Albuterol Sulfate (Albuterol 2.5 Mg/3 Ml Vial.Neb.) 2.5 mg INHALATION Q2H PRN PRN PRN Reason: SOB/Wheezing Albuterol Sulfate (Albuterol 2.5 Mg/3 Ml Vial.Neb.) 2.5 mg INHALATION Q6HWA.RT [facility] Last Admin: 10/20/20 07:38 Dose: 2.5 mg Documented by: Albuterol/Ipratropium (Ipratropium/Albuterol Sulfate 3 Ml Ampul.Neb) 3 ml INHALATION Q6HWA.RT [facility] Last Admin: 10/19/20 19:53 Dose: 3 ml Documented by: Artificial Tears (Dextran 70/He-Cell 15ml Bottle) 1 - 2 drp OPHTHALMIC BID PRN PRN PRN Reason: DRY EYES Ascorbic Acid (Ascorbic Acid 500 Mg Tablet) 1,000 mg PO DAILY@0800 [facility] Last Admin: 10/20/20 11:19 Dose: 1,000 mg Documented by: Aspirin (Aspirin E.C. 81 Mg Tablet) 81 mg PO DAILY@0800 [facility] Last Admin: 10/20/20 06:16 Dose: 81 mg Documented by: Atorvastatin Calcium (Atorvastatin Calcium 40 Mg Tablet) 40 mg PO QHS [facility] Last Admin: 10/19/20 21:13 Dose: 40 mg Documented by: Budesonide (Budesonide Respules 0.5 Mg/2 Ml Ampul.Neb.) 0.5 mg INHALATION Q12H.RT [facility] Last Admin: 10/20/20 07:38 Dose: 0.5 mg Documented by: Calcium/Vitamin D (Calcium Carb/Vitamin D 1 Tablet Tablet) 1 tablet PO DA KELSEY@0800 [facility] Last Admin: 10/20/20 11:19 Dose: 1 tablet Documented by: Dicyclomine HCl (Dicyclomine 10 Mg Capsule) 20 mg PO BID@0800,1600 [facility] Last Admin: 10/20/20 11:19 Dose: 20 mg Documented by: Dorzolamide HCl (Dorzolamide 2% 10ml Bottle) 1 drp OPHTHALMIC BID [facility] Last Admin: 10/20/20 11:22 Dose: 1 drp Documented by: Enoxaparin Sodium (Enoxaparin 40 Mg/0.4 Ml Syringe) 40 mg SC DAILY [facility] Last Admin: 10/20/20 09:47 Dose: Not Given Documented by: Fluticasone Propionate (Fluticasone 0.05% 1 [place] Nasal.Sry) 1 spray NASAL BID [facility] Last Admin: 10/20/20 11:19 Dose: 1 spray Documented by: Gabapentin (Gabapentin 300 Mg Capsule) 600 mg PO BID@0800,1600 [facility] Last Admin: 10/20/20 11:21 Dose: 600 mg Documented by: Gabapentin (Gabapentin 800 Mg Tablet) 800 mg PO QHS@1999 [facility] Last Admin: 10/19/20 21:12 Dose: 800 mg Documented by: Gabapentin (Gabapentin 300 Mg Capsule) 300 mg PO QHS@1999 [facility] Last Admin: 10/19/20 21:12 Dose: 300 mg Documented by: Guaifenesin (Guaifenesin 600 Mg Tablet) 600 mg PO BID@08,1999 [facility] Last Admin: 10/20/20 11:19 Dose: 600 mg Documented by: Latanoprost (Latanoprost 0.005% 1 Bottle) 1 drp EACH EYE QHS [facility] Last Admin: 10/19/20 22:19 Dose: 1 drp Documented by: Losartan Potassium (Losartan Potassium 50 Mg Tablet) 50 mg PO DAILY@0800 [facility] Last Admin: 10/20/20 06:16 Dose: 50 mg Documented by: Montelukast Sodium (Montelukast 10 Mg Tablet) 10 mg PO DAILY@1600 [facility] Morphine Sulfate (Morphine 2 Mg/Ml Syringe) 2 mg IV Q3H PRN PRN PRN Reason: Pain Score 6-10 Last Admin: 10/20/20 02:24 Dose: 2 mg Documented by: Nitroglycerin (Nitroglycerin (Inpatient Use) 0.4 Mg Tab.Subl) 0.4 mg SL Q5M PRN PRN Reason: CHEST PAIN Oxycodone HCl (Oxycodone 5 Mg Tablet) 5 mg PO Q4H PRN PRN PRN Reason: Pain Score 4-5 Pantoprazole Sodium (Pantoprazole Sodium 20 Mg Tablet) 20 mg PO DAILY@0800 [facility] Last Admin: 10/20/20 11:20 Dose: 20 mg Documented by: Polyethylene Glycol (Polyethylene Glycol 3350 17 Gm Packet) 17 gm PO DAILY [facility] Last Admin: 10/20/20 11:18 Dose: 17 gm Documented by: Prochlorperazine Edisylate (Prochlorperazine 10 Mg/2 Ml Vial) 5 mg IV Q4H PRN PRN PRN Reason: Breakthrough Nausea/Vomiting Senna/Docusate Sodium (Senna/Docusate Sodium 1 Tablet) 2 tablet PO QHS@1999 [facility] Last Admin: 10/19/20 21:13 Dose: 2 tablet Documented by: Sodium Chloride (0.9% Saline Lock 10 Ml Syringe) 10 - 40 ml IV UD PRN PRN Reason: SALINE FLUSH Last Admin: 10/20/20 02:25 Dose: 10 ml Documented by: Sodium Chloride (Sodium Chloride 0.65% 1 [place].Btl) 2 spray NASAL Q2H PRN PRN Reason: SINUS CONGESTION Discharge Activity: May Not Drive Weight Bearing Status: Weight bearing as tolerated Call your doctor if you observe: Fever of 101 or Higher, Coldness, Increased Pain, Numbness or Tingling, Change in Color, Inability to urinate, Inability to have a bowel movement, Shortness of breath, Dizziness, Fainting spells, Swelling in the ankles, Chest pain, Prolonged hiccoughing, Increased palpitations (irregular heartbeat), Calf discomfort, Uncontrolled pain Home Medications: Medications to take at Discharge Budesonide/Formoterol 160/4.5 [Symbicort 160/4.5 Mcg Inhaler (SP)] 2 puff INHALATION BID 09/01/13 Albuterol Inhaler [Ventolin Hfa] 1 - 2 puff INHALATION Q6H PRN PRN 05/01/14 Bimatoprost [[place]umigan Opthalmic] 1 drp EACH EYE QHS 05/01/14 Ipratropium/Albuterol Sulfate [Duoneb] 3 ml INHALATION Q6HWA.RT 05/01/14 Ascorbic Acid [Vitamin C] 1,000 mg PO DAILY@0800 07/28/15 Aspirin [Aspirin, Baby] 81 mg PO DAILY@0800 10/28/15 Olopatadine HCl [Patanol] 1 drp EACH EYE DAILY 10/28/15 Guaifenesin [Mucinex] 600 mg PO BID@0800,199905/10/18 Polyethylene Glycol 3350 [Miralax] 17 gm PO DAILY 05/10/18 traMADol [Ultram] 50 mg PO QHS 05/10/18 Dorzolamide HCl/Pf [Dorzolamide 2% Eye Drop] 1 drp OP BID 05/11/18 Calcium Carbonate/Vitamin D3 [Oyster Shell 500-Vit D3 200 Tb] 1 tablet PO DAILY@0800 10/19/20 Cyclosporine [Restasis Multidose] 1 drp EACH EYE BID 10/19/20 Dicyclomine HCl 20 mg PO BID@0800,1600 10/19/20 Fluticasone 0.05% [Flonase Nasal [place]] 1 spray NASAL BID 10/19/20 Gabapentin 300 mg PO QHS@199910/19/20 Gabapentin 600 mg PO BID@0800,1600 10/19/20 Gabapentin 800 mg PO QHS@199910/19/20 Losartan Potassium 50 mg PO DAILY@0800 10/19/20 Metformin HCl 500 mg PO BIDCM@0800,1600 10/19/20 Montelukast [Singulair] 10 mg PO DAILY@1600 10/19/20 Multivitamin with Minerals [Multiple Vitamin] 1 tablet PO DAILY@0800 10/19/20 [place]-3 Fatty Acids/Fish Oil [Fish Oil 1,000 mg Capsule] 2 capsule PO BID@0800,1600 10/19/20 Omeprazole [Prilosec] 20 mg PO DAILY@0800 10/19/20 Sennosides/Docusate Sodium [Senna-S Tablet] 2 tablet PO QHS@199910/19/20 Sodium Chloride 0.65% [[place] Nasal [place]] 2 spray NASAL Q2H PRN 10/19/20 Tiotropium [place] [Spiriva Respimat] 1 puff INHALATION DAILY 10/19/20 Furosemide [Lasix] 40 mg PO QODAY@0800 #0 10/20/20 Furosemide [Lasix] 80 mg PO QODAY@0800 #0 10/20/20 Primary Care Physician: Gerri Griffin SCHOOL PSYCHOLOGICAL EXAMINER, SCHOOL PSYCHOLOGICAL EXAMINER-C [Primary Care Provider] - Please follow up with your Primary Care Physician in: in 2 weeks Medical Necessity - Tobacco Use Smoking Status: Former smoker Meaningful Use Info Meaningful Use Diagnoses (Choose all that apply): None applicable OBSV E&M: 03745 Observation care discharge
[2020-10-20] MEDS: Ipratropium/Albuterol Sulfate 3 ML AMPUL.NEB INHALATION (13:24)
== END 2020-10-20 12:55 | disposition home or self-care (01) ==
LOC: ED 13:13 → PCU 13:20
PROVIDERS: Admitting Provider Internal Medicine; Emergency Provider Emergency Medicine; PCP Nurse Practitioner Adult Health; Visit Provider Internal Medicine
DX: R07.89 Other chest pain (principal); I10 Essential (primary) hypertension; I13.0 Hypertensive heart and chronic kidney disease with heart failure and stage 1 through stage 4 chronic kidney disease, or unspecified chronic kidney disease; N18.31 Chronic kidney disease, stage 3a; E11.22 Type 2 diabetes mellitus with diabetic chronic kidney disease; J44.9 Chronic obstructive pulmonary disease, unspecified; G47.33 Obstructive sleep apnea (adult) (pediatric); E66.01 Morbid (severe) obesity due to excess calories; E78.5 Hyperlipidemia, unspecified; J96.11 Chronic respiratory failure with hypoxia; Z85.46 Personal history of malignant neoplasm of prostate; Z79.899 Other long term (current) drug therapy; Z87.891 Personal history of nicotine dependence; Z79.51 Long term (current) use of inhaled steroids; Z79.82 Long term (current) use of aspirin; Z79.84 Long term (current) use of oral hypoglycemic drugs; Z68.32 Body mass index [BMI] 32.0-32.9, adult; R00.1 Bradycardia, unspecified; R94.31 Abnormal electrocardiogram [ECG] [EKG]
CPT/HCPCS: 36415; 71045; 78452; 80048; 80061; 82962; 83735; 84443; 84484; 85025; 93005; 93017; 94640; 96372; 96374; 97162; 97165; 99218; 99251; 99285; 99406; A9500; A4216; G0378; G0463; J2785

== ENCOUNTER 2021-01-06 17:43 | Emergency (ER) | payer MEDICARE, MEDICAID, SELFPAY ==
[2020-10-19 14:19] VITALS: BMI 32.0
[2021-01-06 17:44] VITALS: BP 154/61; PULSE 53; RESP 17; TEMP 37.1; O2SAT 96; BMI 31.8
--- NOTE | 2021-01-06 18:21 | RAD_ITS ---
STUDY: X-RAY - PELVIS AND RIGHT HIP REASON FOR EXAM: Male, 80 years old. pain TECHNIQUE: 3 views of the pelvis and hip. COMPARISON: 27 April 2012, 08 November 2018 FINDINGS: There is moderate to advanced right hip joint degeneration with predominantly cystic subchondral change in the acetabulum and femoral head. Joint space is eliminated superiorly and medially. There is no femoral head collapse. Femoral neck is intact. Left hip is surgically replaced. There are surgical clips in the pelvis, likely prostate related pelvic lymph node dissection. Remainder of the pelvis is normal. RAD/HIP, UNI W/ Pelvis 2-3 Views IMPRESSION: Moderate to advanced right hip degeneration. No acute findings. Electronically Signed: Caroline Mckay MD at 18:49 EDT Tel , Service support ,
--- NOTE | 2021-01-06 18:36 | EX.ED.DYSGE1 ---
HPI History of Present Illness Chief Complaint: Abd Pain Narrative Narrative: 80-year-old male arriving to the emergency department via EMS with pain in the right hip. He states that symptoms began approximately 1 week ago. He said no trauma to it. He states that he was told several years ago that his hip joint was deteriorating. He notes pain over the medial hip extending laterally and then posteriorly. He denies any urinary or bowel symptoms. No fevers. He denies any abdominal pain to me. PFSH PFSH Medical History Bilateral pneumonia Chronic obstructive lung disease Chronic respiratory failure CKD (chronic kidney disease), stage III DM type 2 (diabetes mellitus, type 2) Dyslipidemia Hypertension Morbid obesity Prostate cancer Home Medications budesonide-formoterol 2 puff INHALATION BID 09/01/13 [History Last Taken 05/10/18 12:00] albuterol sulfate 1 - 2 puff INHALATION Q6H PRN PRN 05/01/14 [History Last Taken 05/10/18 12:00] bimatoprost 1 drp EACH EYE QHS 05/01/14 [History Last Taken 10/18/20] ipratropium-albuterol 3 ml INHALATION Q6HWA.RT 05/01/14 [History Last Taken 05/01/14] ascorbic acid (vitamin C) 1,000 mg PO DAILY@0800 07/28/15 [History Last Taken 10/19/20] aspirin 81 mg PO DAILY@0800 10/28/15 [History Last Taken 10/19/20] olopatadine 1 drp EACH EYE DAILY 10/28/15 [History Last Taken 10/19/20] guaifenesin 600 mg PO BID@0800,199905/10/18 [History Last Taken 10/19/20] polyethylene glycol 3350 17 gm PO DAILY 05/10/18 [History Last Taken 05/10/18 08:30] tramadol 50 mg PO QHS 05/10/18 [History Last Taken 10/18/20] dorzolamide (PF) 1 drp OP BID 05/11/18 [History Last Taken 10/19/20] calcium carbonate-vitamin D3 1 tablet PO DAILY@0800 10/19/20 [History Last Taken 10/19/20] cyclosporine 1 drp EACH EYE BID 10/19/20 [History Last Taken 10/19/20] dicyclomine 20 mg PO BID@0800,1600 10/19/20 [History Last Taken 10/19/20] fluticasone propionate 1 spray NASAL BID 10/19/20 [History Last Taken Unknown] gabapentin 300 mg PO QHS@199910/19/20 [History Last Taken 10/18/20] gabapentin 600 mg PO BID@0800,1600 10/19/20 [History Last Taken 10/19/20] gabapentin 800 mg PO QHS@199910/19/20 [History Last Taken 10/18/20] losartan 50 mg PO DAILY@0800 10/19/20 [History Last Taken 10/19/20] metformin 500 mg PO BIDCM@0800,1600 10/19/20 [History Last Taken 10/19/20] montelukast 10 mg PO DAILY@1600 10/19/20 [History Last Taken 10/18/20] multivitamin with minerals 1 tablet PO DAILY@0800 10/19/20 [History Last Taken 10/19/20] omega-3 fatty acids-fish oil 2 capsule PO BID@0800,1600 10/19/20 [History Last Taken 10/19/20] omeprazole 20 mg PO DAILY@0800 10/19/20 [History Last Taken 10/19/20] sennosides-docusate sodium 2 tablet PO QHS@199910/19/20 [History Last Taken 10/18/20] sodium chloride 2 spray NASAL Q2H PRN 10/19/20 [History Last Taken Unknown] tiotropium bromide 1 puff INHALATION DAILY 10/19/20 [History Last Taken 10/19/20] furosemide 40 mg PO QODAY@0800 #0 10/20/20 [Rx Last Taken Unknown] vancomycin 250 mg PO DAILY 01/06/21 [History Last Taken Unknown] Allergy/AdvReac Type Severity Reaction Status Date / Time codeine AdvReac confused Verified 01/06/21 17:48 lisinopril AdvReac Other Verified 01/06/21 17:48 BETA DEAN Allergy Hives Uncoded 01/06/21 17:48 PAIN MEDICATION Allergy Itching Uncoded 01/06/21 17:48 Family History Brother Leukemia Surgical History History of hip surgery Social History Smoking Status: Former smoker Tobacco: How many years used: 50 how long ago did patient quit smokin, 2ppd second hand exposure: Yes ROS ROS ED Constitutional Constitutional ED: Denies chills or weight loss Eyes Eyes: Denies change in vision or diplopia ENT ENT ED: Denies ear pain, rhinorrhea or sore throat Cardiovascular Cardiovascular: Denies chest pain, orthopnea, palpitations or racing heartbeat Respiratory/Chest Respiratory/Chest: Denies cough, dyspnea or orthopnea Gastrointestinal Gastrointestinal: Denies abdominal pain, diarrhea, nausea or vomiting Genitourinary Genitourinary ED: Denies dysuria, hematuria or urinary frequency Musculoskeletal Musculoskeletal: Reports other Details: See history of present illness ; Denies arthralgias or myalgias Integumentary Denies abscess or rash Neurologic Neurologic: Denies headache(s) or weakness Psychiatric Psychiatric: Denies anxiety, depression, suicidal ideation or suicidal thoughts Endocrine Endocrinology: Denies polydipsia, polyphagia or polyuria Allergic/Immunologic Allergic/Immunologic ED: Denies mouth swelling, tongue swelling or urticaria EXAM Physical Exam Const Vital Signs: 01/06/21 17:44 Temperature 98.8 F Temperature Source Temporal Pulse Rate 53 L Respiratory Rate 17 Blood Pressure 154/61 H Blood Pressure Mean 92 Pulse Ox 96 Oxygen Delivery Method Room Air Positive well nourished and well developed General Appearance ED: well developed HEENT Reports normocephalic, head/scalp atraumatic and moist mucous membranes Eyes PERRL and EOMs intact bilaterally Neck no lymphadenopathy, supple and no JVD Resp normal respiratory effort and clear to auscultation bilaterally Cardio regular rate, regular rhythm and no murmurs GI normal to inspection, nondistended, normoactive bowel sounds and non-tender Palpation: soft Back/Spine no CVA tenderness and normal ROM Extremity Extremity Narrative: Patient has tenderness palpation around the hip. He has pain with logroll. Neurovascular appears intact. General Extremety ED: Negative for edema General Extremity: Negative for edema Neuro oriented x3 and CN's II-XII intact bilaterally Sensorium / Orientation: alert Motor Exam: strength 5/5 throughout Psych mental status grossly normal Mood & Affect: Negative for depressed or tearful Skin no rashes or lesions noted and no wounds MDM MDM MDM Narrative Medical decision making narrative: X-rays of the pelvis and right hip demonstrate significant osteoarthritic changes. Patient received a dose of Kenalog and pain medication. He had his left hip surgery/replacement done in [place]. He is currently living down here. Refer him to on-call orthopedics. Would advise him to call tomorrow morning. He lives with his and they get around the home typically by using motorized devices. Discharge Plan Triage Chief Complaint: Abd Pain ED Provider: Nick Lawson Dx/Rx/DC Orders Clinical Impression: Osteoarthritis of right hip, Acute pain of right hip Instructions: ED Osteoarthritis Prescriptions: No Action budesonide-formoterol 1 INHALER inhaler 2 puff Inhalation BID RF: 0 ipratropium-albuterol 3 ML solution for nebulization 3 ml Inhalation Q6HWA.RT RF: 0 albuterol sulfate 1 INHALER inhaler 1 - 2 puff Inhalation Q6H PRN PRN (Reason: Sob &/Or Wheezing) RF: 0 bimatoprost 1 DROP bottle 1 drp EACH EYE QHS RF: 0 ascorbic acid (vitamin C) 500 MG tablet 1,000 mg PO DAILY@0800 RF: 0 olopatadine 1 DROP bottle 1 drp EACH EYE DAILY RF: 0 aspirin 81 MG tablet,chewable 81 mg PO DAILY@0800 RF: 0 polyethylene glycol 3350 17 GM packet 17 gm PO DAILY RF: 0 tramadol 50 MG tablet 50 mg PO QHS RF: 0 guaifenesin 600 MG tablet 600 mg PO BID@0800,1999 RF: 0 dorzolamide (PF) 10 ML drops 1 drp OP BID RF: 0 losartan 50 MG tablet 50 mg PO DAILY@0800 RF: 0 metformin 500 MG tablet 500 mg PO BIDCM@0800,1600 RF: 0 sennosides-docusate sodium 1 EACH tablet 2 tablet PO QHS@1999 RF: 0 gabapentin 800 MG tablet 800 mg PO QHS@1999 RF: 0 dicyclomine 20 MG tablet 20 mg PO BID@0800,1600 RF: 0 gabapentin 300 MG capsule 600 mg PO BID@0800,1600 RF: 0 gabapentin 300 MG capsule 300 mg PO QHS@1999 RF: 0 omeprazole 20 MG capsule 20 mg PO DAILY@0800 RF: 0 montelukast 10 MG tablet 10 mg PO DAILY@1600 RF: 0 multivitamin with minerals 1 EACH tablet 1 tablet PO DAILY@0800 RF: 0 fluticasone propionate 1 SPRAY spray,suspension 1 spray NASAL BID RF: 0 sodium chloride 1 SPRAY aerosol,spray 2 spray NASAL Q2H PRN (Reason: Sinus Congestion) RF: 0 calcium carbonate-vitamin D3 1 EACH tablet 1 tablet PO DAILY@0800 RF: 0 omega-3 fatty acids-fish oil 1 EACH capsule 2 capsule PO BID@0800,1600 RF: 0 tiotropium bromide 4 GM mist 1 puff INHALATION DAILY RF: 0 cyclosporine 5.5 ML drops 1 drp EACH EYE BID RF: 0 furosemide 40 MG tablet 40 mg PO QODAY@0800 Qty: 0 RF: 0 vancomycin 250 mg capsule 250 mg PO DAILY RF: 0 Primary Care Provider: Gerri Griffin PYRIDINE RECOVERY OPERATOR Referrals: Catalino Leigh DO [STAFF PHYSICIAN] - As soon as possible (Call for Orthopedic consultation) Gerri Griffin PYRIDINE RECOVERY OPERATOR, PYRIDINE RECOVERY OPERATOR-C [Primary Care Provider] - Disposition Disposition: Home, Self Care
[2021-01-06] MEDS: Triamcinolone Acetonide 40 MG/ML Vial IM (18:51)
[2021-01-06] MEDS: oxyCODONE 5 MG Tablet 10 MG PO (18:52)
[2021-01-06 18:57] VITALS: RESP 19
== END 2021-01-06 20:11 | disposition home or self-care (01) ==
PROVIDERS: Emergency Provider Emergency Medicine; PCP Nurse Practitioner Adult Health
DX: M16.11 Unilateral primary osteoarthritis, right hip (principal); R10.9 Unspecified abdominal pain; J44.9 Chronic obstructive pulmonary disease, unspecified; J96.10 Chronic respiratory failure, unspecified whether with hypoxia or hypercapnia; E11.22 Type 2 diabetes mellitus with diabetic chronic kidney disease; I12.9 Hypertensive chronic kidney disease with stage 1 through stage 4 chronic kidney disease, or unspecified chronic kidney disease; N18.30 Chronic kidney disease, stage 3 unspecified; E78.5 Hyperlipidemia, unspecified; E66.01 Morbid (severe) obesity due to excess calories; Z79.82 Long term (current) use of aspirin; Z79.84 Long term (current) use of oral hypoglycemic drugs; Z79.899 Other long term (current) drug therapy; Z87.891 Personal history of nicotine dependence; Z85.46 Personal history of malignant neoplasm of prostate
CPT/HCPCS: 73502; 96372; 99285; A4216

== ENCOUNTER 2021-03-25 19:26 | Emergency (ER) | payer MEDICARE, MEDICAID, SELFPAY ==
[2021-03-25 19:27] VITALS: BP 175/78; PULSE 59; RESP 16; TEMP 36.8; O2SAT 94; BMI 30.5
[2021-03-25 21:41] VITALS: BP 185/121; PULSE 67; RESP 17; O2SAT 97
--- NOTE | 2021-03-25 22:05 | RAD_ITS ---
HISTORY: Chronic right hip pain EXAMINATION/TECHNIQUE: XR Hip Unilateral with Pelvis when performed; 2-3 Views: AP pelvis with AP and lateral views right hip COMPARISON: Pelvis and right hip radiographs from 01/06/21 FINDINGS: PELVIC BONES: No displaced fracture, destructive or sclerotic lesions. Note that overlapping bowel shadows may however obscure fine detail. Sacroiliac joints are unremarkable. No widening of the pubic symphisis. Lower lumbar degenerative disc space narrowing, facet arthropathy and osteophytes. HIPS: Stable appearance of severe loss of right hip joint space with [id number] articulation, subchondral sclerosis, subchondral cysts and marginal osteophytosis. No acute fracture or dislocation. Stable left hip arthroplasty hardware. SOFT TISSUES: Multiple metallic clips within pelvis suggesting previous prostatectomy. Stable appearance of couple of punctate metallic foreign bodies right proximal thigh. RAD/HIP, UNI W/ Pelvis 2-3 Views IMPRESSION: Stable appearance of severe right hip osteoarthritis. Other chronic and non-urgent findings within body of report. at [id number] Reported and signed by: Sherwin Andujar MD Electronically Signed: Sherwin Andujar MD at 22:45 EDT Tel , Service support ,
--- NOTE | 2021-03-25 22:30 | ED.RN ---
Reports his pain has worsened since the xray and would like help for the pain. He took his own percocet [employer] OFFIC[employer] but states not since this am and only took one. Requesting from doctor now.
[2021-03-25] MEDS: oxyCODONE 5 MG Tablet PO (22:40)
--- NOTE | 2021-03-25 22:59 | ED.VIS.LOWEX ---
HPI History of Present Illness Chief Complaint: Lower Extremity Injury Informant: patient Narrative Narrative: Patient presents with worsening right hip pain over the past 2 months. He states he has had pain in this hip for 3 years. He states he is currently on Percocet per Dr. Mobley and is not helping his pain. He has seen orthopedics in the past for possible surgery however he states there is concerns of his medical history. He has had a left hip arthroplasty with revision in the past. He states he primary gets around by wheelchair or electric scooter. He lives with his spouse who also uses electric scooter. He states he had a fall 2 weeks ago onto his right knee. Denies any knee pain. Denies any worsening pain in his hip. Is unclear when he last saw the orthopedics. His last oxycodone was this morning. Reviewing records, there was orthopedic office visit with Dr. Leigh January 28, evaluation for severe osteoarthritis of the hip. At that visit reported patient only wanted pain relief and pain control. He was given Percocet short prescription and was told to follow-up with PCP for pain management referral which he currently sees. Prior similar symptoms: Yes PFSH PFSH Medical History Bilateral pneumonia Chronic obstructive lung disease Chronic respiratory failure CKD (chronic kidney disease), stage III DM type 2 (diabetes mellitus, type 2) Dyslipidemia Forgetfulness Hypertension Morbid obesity Prostate cancer Home Medications budesonide-formoterol 2 puff INHALATION BID 09/01/13 [History Last Taken 05/10/18 12:00] albuterol sulfate 1 - 2 puff INHALATION Q6H PRN PRN 05/01/14 [History Last Taken 05/10/18 12:00] bimatoprost 1 drp EACH EYE QHS 05/01/14 [History Last Taken 10/18/20] ipratropium-albuterol 3 ml INHALATION Q6HWA.RT 05/01/14 [History Last Taken 05/01/14] ascorbic acid (vitamin C) 1,000 mg PO DAILY@0800 07/28/15 [History Last Taken 10/19/20] aspirin 81 mg PO DAILY@0800 10/28/15 [History Last Taken 10/19/20] olopatadine 1 drp EACH EYE DAILY 04/17/16 [History Last Taken 10/19/20] guaifenesin 600 mg PO BID@0800,199905/10/18 [History Last Taken 10/19/20] polyethylene glycol 3350 17 g PO DAILY 05/10/18 [History Last Taken 05/10/18 08:30] tramadol 50 mg PO QHS 05/10/18 [History Last Taken 10/18/20] dorzolamide (PF) 1 drp OP BID 05/11/18 [History Last Taken 10/19/20] calcium carbonate-vitamin D3 1 tablet PO DAILY@0800 10/19/20 [History Last Taken 10/19/20] cyclosporine 1 drp EACH EYE BID 10/19/20 [History Last Taken 10/19/20] dicyclomine 20 mg PO BID@0800,1600 10/19/20 [History Last Taken 10/19/20] fluticasone propionate 1 spray NASAL BID 10/19/20 [History Last Taken Unknown] gabapentin 300 mg PO QHS@199910/19/20 [History Last Taken 10/18/20] gabapentin 600 mg PO BID@0800,1600 10/19/20 [History Last Taken 10/19/20] gabapentin 800 mg PO QHS@199910/19/20 [History Last Taken 10/18/20] losartan 50 mg PO DAILY@0800 10/19/20 [History Last Taken 10/19/20] metformin 500 mg PO BIDCM@0800,1600 10/19/20 [History Last Taken 10/19/20] montelukast 10 mg PO DAILY@1600 10/19/20 [History Last Taken 10/18/20] multivitamin with minerals 1 tablet PO DAILY@0800 10/19/20 [History Last Taken 10/19/20] omega-3 fatty acids-fish oil 2 capsule PO BID@0800,1600 10/19/20 [History Last Taken 10/19/20] omeprazole 20 mg PO DAILY@0800 10/19/20 [History Last Taken 10/19/20] sennosides-docusate sodium 2 tablet PO QHS@199910/19/20 [History Last Taken 10/18/20] sodium chloride 2 spray NASAL Q2H PRN 10/19/20 [History Last Taken Unknown] tiotropium bromide 1 puff INHALATION DAILY 10/19/20 [History Last Taken 10/19/20] furosemide 40 mg PO QODAY@0800 #0 10/20/20 [Rx Last Taken Unknown] oxycodone-acetaminophen 1 tab PO Q6H PRN PRN 5 Days #20 tablet 01/06/21 [Rx Last Taken Unknown] vancomycin 250 mg PO DAILY 01/06/21 [History Last Taken Unknown] budesonide 9 mg tablet,delayed and extended release mg PO 01/28/21 [History Last Taken Unknown] Allergy/AdvReac Type Severity Reaction Status Date / Time codeine AdvReac confused Verified 03/25/21 19:27 lisinopril AdvReac Other Verified 03/25/21 19:27 BETA DEAN Allergy Hives Uncoded 03/25/21 19:27 PAIN MEDICATION Allergy Itching Uncoded 03/25/21 19:27 Family History Brother Leukemia Surgical History History of hip surgery Social History household members: spouse and other details: step son housing: house Smoking Status: Former smoker Tobacco: How many years used: 50 how long ago did patient quit smokin, 2ppd second hand exposure: Yes do you feel safe at home: Yes ROS ROS ED Constitutional Constitutional ED: Denies chills, fever(s) or sweats Eyes Eyes: Denies change in vision ENT ENT ED: Denies dysphagia or sore throat Cardiovascular Cardiovascular: Denies chest pain, leg edema, palpitations or racing heartbeat Respiratory/Chest Respiratory/Chest: Denies cough, dyspnea or dyspnea on exertion Gastrointestinal Gastrointestinal: Denies abdominal pain, diarrhea, nausea or vomiting Genitourinary Genitourinary ED: Denies dysuria, hematuria or urinary frequency Musculoskeletal Musculoskeletal: Reports arthralgias; Denies back pain, extremity pain or neck pain Integumentary Denies rash or wounds Neurologic Neurologic: Denies headache(s), paresthesias or weakness EXAM Physical Exam Const Vital Signs: 03/25/21 19:27 03/25/21 21:41 Temperature 98.2 F Temperature Source Temporal Pulse Rate 59 L 67 Respiratory Rate 16 17 Blood Pressure 175/78 H 185/121 H Blood Pressure Mean 110 142 Pulse Ox 94 97 Oxygen Delivery Method Room Air Room Air Positive well nourished and well developed General Appearance ED: well developed and NAD HEENT Reports moist mucous membranes normocephalic and atraumatic Eyes PERRL, EOMs intact bilaterally and conjunctivae normal General Eye ED: Yes normal appearance of both eyes Neck no lymphadenopathy and supple General: Negative for tenderness Chest Wall Chest: Negative for tenderness Resp normal respiratory effort and normal air movement Effort and Inspection: symmetric chest movement; Negative for respiratory distress Cardio regular rate, regular rhythm and no murmurs Peripheral Pulses: pulses 2+ throughout GI normal to inspection, nondistended, normoactive bowel sounds and non-tender Palpation: Negative for guarding or rebound tenderness present Back/Spine no CVA tenderness and no thoracic nor lumbar tenderness Extremity normal to inspection Extremity Narrative: Right lower extremity no shortening or rotation. Negative logroll. Healing right knee abrasion. Extensor mechanism intact. Neurovascular intact distally. General Extremety ED: Negative for edema or tenderness General Extremity: Negative for edema Neuro oriented x3 and no sensory deficits noted Sensorium / Orientation: awake and alert Skin no rashes or lesions noted and no wounds MDM MDM MDM Narrative Medical decision making narrative: X-ray right hip obtained no severe osteoarthritis changes. There is no fractures. After imagings pain increase given oxycodone with improvement. I discussed with the patient ongoing worsening pain since seeing orthopedics, he should reconsider option of surgical intervention however this discussion needs to be made with his specialist. He currently still does have Percocets to use. Primary transport is wheelchair or electric wheelchair. He will follow-up with his orthopedics as an outpatient. All questions were answered. Radiography X-Ray: Right Hip, Read by ED Physician and Read by Radiologist Diagnostic Testing: Radiology Impression Hip/Pelvis X-Ray 03/25/21 22:05 IMPRESSION: Stable appearance of severe right hip osteoarthritis. Other chronic and non-urgent findings within body of report. at [id number] Reported and signed by: Sherwin Andujar MD Electronically Signed: Sherwin Andujar MD at 22:45 EDT Tel , Service support , Discharge Plan Triage Chief Complaint: Lower Extremity Injury ED Provider: Tray Ledbetter Dx/Rx/DC Orders Clinical Impression: Chronic right hip pain, Osteoarthritis of right hip Instructions: ED Chronic Pain, ED Osteoarthritis Prescriptions: No Action budesonide 9 mg tablet,delayed and ext.release PO RF: 0 budesonide-formoterol 1 INHALER inhaler 2 puff inhalation BID RF: 0 ipratropium-albuterol 3 ML solution for nebulization 3 ml inhalation Q6HWA.RT RF: 0 albuterol sulfate 1 INHALER inhaler 1 - 2 puff inhalation Q6H PRN PRN (Reason: Sob &/Or Wheezing) RF: 0 bimatoprost 1 DROP bottle 1 drp EACH EYE QHS RF: 0 ascorbic acid (vitamin C) 500 MG tablet 1,000 mg PO DAILY@0800 RF: 0 olopatadine 1 DROP bottle 1 drp EACH EYE DAILY RF: 0 aspirin 81 MG tablet,chewable 81 mg PO DAILY@0800 RF: 0 polyethylene glycol 3350 17 GM packet 17 g PO DAILY RF: 0 tramadol 50 MG tablet 50 mg PO QHS RF: 0 guaifenesin 600 MG tablet 600 mg PO BID@0800,2000 RF: 0 dorzolamide (PF) 10 ML drops 1 drp OP BID RF: 0 losartan 50 MG tablet 50 mg PO DAILY@0800 RF: 0 metformin 500 MG tablet 500 mg PO BIDCM@0800,1600 RF: 0 sennosides-docusate sodium 1 EACH tablet 2 tablet PO QHS@1999 RF: 0 gabapentin 800 MG tablet 800 mg PO QHS@1999 RF: 0 dicyclomine 20 MG tablet 20 mg PO BID@0800,1600 RF: 0 gabapentin 300 MG capsule 600 mg PO BID@0800,1600 RF: 0 gabapentin 300 MG capsule 300 mg PO QHS@2000 RF: 0 omeprazole 20 MG capsule 20 mg PO DAILY@0800 RF: 0 montelukast 10 MG tablet 10 mg PO DAILY@1600 RF: 0 multivitamin with minerals 1 EACH tablet 1 tablet PO DAILY@0800 RF: 0 fluticasone propionate 1 SPRAY spray,suspension 1 spray NASAL BID RF: 0 sodium chloride 1 SPRAY aerosol,spray 2 spray NASAL Q2H PRN (Reason: Sinus Congestion) RF: 0 calcium carbonate-vitamin D3 1 EACH tablet 1 tablet PO DAILY@0800 RF: 0 omega-3 fatty acids-fish oil 1 EACH capsule 2 capsule PO BID@0800,1600 RF: 0 tiotropium bromide 4 GM mist 1 puff INHALATION DAILY RF: 0 cyclosporine 5.5 ML drops 1 drp EACH EYE BID RF: 0 furosemide 40 MG tablet 40 mg PO QODAY@0800 Qty: 0 RF: 0 vancomycin 250 mg capsule 250 mg PO DAILY RF: 0 oxycodone-acetaminophen [oxycodone-acetaminophen] 1 TABLET tablet 1 tab PO Q6H PRN PRN (Reason: pain) 5 Days Qty: 20 RF: 0 Primary Care Provider: Gerri Griffin NP Referrals: Catalino Leigh DO [STAFF PHYSICIAN] - 3-5 Days Gerri Griffin CLERICAL SPECIALIST, [facility] [Primary Care Provider] - Disposition Disposition: Home, Self Care
--- NOTE | 2021-03-25 23:39 | NURSING ---
patient states he has no one to come get him and if we want him to take a cab, we will need to take up a collection. Called the at the number the patietnt gave me as [phone]. She says he has a son that lives in [place] but he works so she does not want to call him. She looked for the phone number and instead found the brother's number as Malcom at [phone]. Left message for him to call back regarding the patient. Malcom called back and in on his way.
== END 2021-03-26 00:02 | disposition home or self-care (01) ==
LOC: ED 23:32
PROVIDERS: Emergency Provider Emergency Medicine; PCP Nurse Practitioner Adult Health
DX: M16.11 Unilateral primary osteoarthritis, right hip (principal); G89.29 Other chronic pain; S80.211A Abrasion, right knee, initial encounter; W19.XXXA Unspecified fall, initial encounter; Y93.9 Activity, unspecified; Y92.9 Unspecified place or not applicable; Y99.9 Unspecified external cause status; J96.10 Chronic respiratory failure, unspecified whether with hypoxia or hypercapnia; J44.9 Chronic obstructive pulmonary disease, unspecified; I12.9 Hypertensive chronic kidney disease with stage 1 through stage 4 chronic kidney disease, or unspecified chronic kidney disease; E11.22 Type 2 diabetes mellitus with diabetic chronic kidney disease; N18.30 Chronic kidney disease, stage 3 unspecified; E66.01 Morbid (severe) obesity due to excess calories; E78.5 Hyperlipidemia, unspecified; Z79.84 Long term (current) use of oral hypoglycemic drugs; Z79.82 Long term (current) use of aspirin; Z79.899 Other long term (current) drug therapy; Z87.01 Personal history of pneumonia (recurrent); Z85.46 Personal history of malignant neoplasm of prostate; Z87.891 Personal history of nicotine dependence; Z96.642 Presence of left artificial hip joint
CPT/HCPCS: 73502; 99284

== ENCOUNTER 2021-04-30 19:06 | Emergency (ER) | payer MEDICARE, MEDICAID, SELFPAY ==
[2021-04-30 19:07] VITALS: PULSE 72; RESP 18; TEMP 36.6; O2SAT 96; BMI 30.2
[2021-04-30 19:11] VITALS: BP 191/75
== END 2021-04-30 21:35 | disposition left against medical advice (07) ==
LOC: ED 21:37
DX: S89.90XA Unspecified injury of unspecified lower leg, initial encounter (principal); X58.XXXA Exposure to other specified factors, initial encounter; Y93.9 Activity, unspecified; Y92.9 Unspecified place or not applicable; Y99.9 Unspecified external cause status; Z53.21 Procedure and treatment not carried out due to patient leaving prior to being seen by health care provider
CPT/HCPCS: 99281

== ENCOUNTER → 2021-05-01 10:28 | Outpatient (CLI) | payer MEDICARE, MEDICAID, SELFPAY ==
[2021-05-01 12:12] LABS: Absolute Lymphocyte Count 1.76 X10^3/uL (0.83-4.51); Absolute Neutrophil Count 4.3 X10^3/uL (2.0-7.7); Basophil# 0.01 X10^3/uL; Basophil% 0.1 % (0-1); Eosinophil# 0.33 X10^3/uL; Eosinophils% 4.5 % (0-5); Hematocrit 45.1 % (40-54); Hemoglobin 13.7 g/dL (13.0-16.5); Lymphocyte # 1.76 X10^3/ul (0.83-4.51); Lymphocyte % 24.1 % (19-41); Mean Corp Hgb Conc 30.4 g/dL (32-36); Mean Corpuscular Hgb 28.1 pg (27.0-32.0); Mean Corpuscular Volume 92.4 fL (80-94); Mean Platelet Vol. 11.2 fl (6.2-12.0); Monocyte# 0.83 X10^3/uL; Monocyte% 11.4 % (0-10); NRBC Flagged by Analyzer 0 % (0-5); Neutrophil # 4.33 X10^3/uL (2.7-7.7); Neutrophil % 59.4 % (47-70); Platelet Count 306 K/mm3 (150-450); RBC Distribution Width CV 13.2 % (11.6-14.6); RBC Distribution Width SD 44.9 fl (35.1-43.9); Red Blood Count 4.88 M/mm3 (4.6-6.2); White Blood Count 7.3 K/mm3 (4.4-11.0)
[2021-05-01 12:19] LABS: ALB/GLOB Ratio 0.8 RATIO (0.9-2.4); AST(SGOT) 16 U/L (15-37); Alanine Aminotransfer ALT/SGPT 16 U/L (16-61); Albumin, Serum 3.2 g/dL (3.2-5.0); Alkaline Phosphatase 103 U/L (45-117); Anion Gap 6 (5-15); BUN 26 mg/dL (7-18); BUN/Creat Ratio 18.7 RATIO (10-20); Calcium,Total 9.7 mg/dL (8.5-10.1); Chloride 98 mmol/L (98-107); Cholesterol 183 mg/dL (200); Creatinine, Serum 1.39 mg/dL (0.70-1.30); EST Glomerular Filtration Rate 52 mL/min (>60); Est Glom Filt Rate - Afr Amer 63 mL/min (>60); Globulin 4.1 g/dL (2.2-4.2); Glucose 111 mg/dL (74-106); High Density Lipoprotein 77 mg/dL; Potassium 3.9 mmol/L (3.5-5.1); Protein, Total 7.3 g/dL (6.4-8.2); Sodium Level 137 mmol/L (136-145); Triglycerides 57 mg/dL; Very Low Density Lipoprotein 11 mg/dL (5-40)
== END ==
PROVIDERS: PCP Internal Medicine; Referring Provider Internal Medicine; Visit Provider Internal Medicine
DX: E11.9 Type 2 diabetes mellitus without complications (principal)
CPT/HCPCS: 36415; 80053; 80061; 83036; 85025

== ENCOUNTER 2021-06-20 22:31 | Emergency (ER) | payer MEDICARE, MEDICAID, SELFPAY ==
[2021-06-20 22:32] VITALS: PULSE 73; RESP 18; TEMP 36.8; O2SAT 95; BMI 28.0
[2021-06-20 22:37] VITALS: BP 177/90
--- NOTE | 2021-06-20 22:59 | CT_ITS ---
STUDY: CT ABDOMEN AND PELVIS WITHOUT CONTRAST REASON FOR EXAM: Male, 81 years old. Flank pain RADIATION DOSAGE (If Supplied By Facility): CTDIvol = ( 17.13 ) mGy, DLP = ( 924.22 ) mGycm TECHNIQUE: Transaxial images were obtained from the dome of the diaphragm to the symphysis pubis without oral contrast, and without intravenous contrast. Sagittal and coronal images were reconstructed. Individualized dose optimization techniques were used for this CT. COMPARISON: 11/08/2018. FINDINGS: The visualized lung bases demonstrate interstitial prominence. The visualized portions of the heart are within normal limits. Normal liver. Moderately distended gallbladder. No significant dilatation of the extrahepatic biliary system. Normal spleen. Normal pancreas. Normal bilateral adrenal glands. 4.8 cm cyst in the right kidney. Normal left kidney. Normal visualized stomach. Normal small intestine. Diffuse fecal retention in the colon. Colonic diverticulosis. The appendix is not visualized. Calcified abdominal aorta. Normal inferior vena cava. Normal retroperitoneum. Normal urinary bladder. Small fatty umbilical hernia. There is a left hip prosthesis in place causing artifact limiting the lower pelvic images. Severe degenerative cystic changes with joint space narrowing of the right hip. Degenerative vertebral changes. CT/Abdomen/Pelvis without Cont IMPRESSION: Moderately distended gallbladder. Right renal cyst. Colonic fecal retention. Colonic diverticulosis. Small fatty umbilical hernia. Electronically Signed: Pete Cruz DO at 23:51 EST Tel [phone], Service support ,
--- NOTE | 2021-06-20 23:00 | ED.VIS.GI ---
HPI HPI - GI History of Present Illness Chief Complaint: Nausea/Vomiting Abdominal Pain/Flank Pain Onset: Hours (5-6) Context: Sudden Onset Timing: Continuous and Waxes and wanes Quality: Aching Location: RLQ and Right Flank Current Severity: Mild Maximum Severity: Severe Worsened by: Nothing Relieved by: Nothing Nausea/Vomiting/Emesis GI Symptom: Positive for Nausea and Vomiting Onset: Today Quality: Positive for Nonbilious; Negative for Blood streaks, Coffee ground and Hematemesis Diarrhea/Melena/Hematochezia GI Symptom: Negative for Diarrhea, Melena and Hematochezia Associated Symptoms Associated Symptoms: Negative for Dysuria, Frequency and Hematuria Narrative Narrative: Patient with acute onset of right lower quadrant/right flank pain tonight, wanted to come to the hospital for it and apparently is on hospice although he was unaware of this, and when asked details is not sure why he is on hospice. He does have a history of prostate cancer but states it has been taking care of long ago. States the pain is not as bad right now PFSH PFS Medical History Bilateral pneumonia Chronic hip pain Chronic nausea Chronic obstructive lung disease Chronic respiratory failure CKD (chronic kidney disease), stage III DM type 2 (diabetes mellitus, type 2) Dyslipidemia Forgetfulness Hypertension Morbid obesity Prostate cancer Weight loss, non-intentional Home Medications budesonide-formoterol 2 puff INHALATION BID 09/01/13 [History Last Taken 05/10/18 12:00] albuterol sulfate 1 - 2 puff INHALATION Q6H PRN PRN 05/01/14 [History Last Taken 05/10/18 12:00] bimatoprost 1 drp EACH EYE QHS 05/01/14 [History Last Taken 10/18/20] ipratropium-albuterol 3 ml INHALATION Q6HWA.RT 05/01/14 [History Last Taken 05/01/14] ascorbic acid (vitamin C) 1,000 mg PO DAILY@0800 07/28/15 [History Last Taken 10/19/20] aspirin 81 mg PO DAILY@0800 10/28/15 [History Last Taken 10/19/20] olopatadine 1 drp EACH EYE DAILY 10/28/15 [History Last Taken 10/19/20] guaifenesin 600 mg PO BID@0800,199905/10/18 [History Last Taken 10/19/20] polyethylene glycol 3350 17 g PO DAILY 05/10/18 [History Last Taken 05/10/18 08:30] tramadol 50 mg PO QHS 05/10/18 [History Last Taken 10/18/20] dorzolamide (PF) 1 drp OP BID 05/11/18 [History Last Taken 10/19/20] calcium carbonate-vitamin D3 1 tablet PO DAILY@0800 10/19/20 [History Last Taken 10/19/20] cyclosporine 1 drp EACH EYE BID 10/19/20 [History Last Taken 10/19/20] dicyclomine 20 mg PO BID@0800,1600 10/19/20 [History Last Taken 10/19/20] fluticasone propionate 1 spray NASAL BID 10/19/20 [History Last Taken Unknown] gabapentin 300 mg PO QHS@199910/19/20 [History Last Taken 10/18/20] gabapentin 600 mg PO BID@0800,1600 10/19/20 [History Last Taken 10/19/20] gabapentin 800 mg PO QHS@199910/19/20 [History Last Taken 10/18/20] losartan 50 mg PO DAILY@0800 10/19/20 [History Last Taken 10/19/20] metformin 500 mg PO BIDCM@0800,1600 10/19/20 [History Last Taken 10/19/20] montelukast 10 mg PO DAILY@1600 10/19/20 [History Last Taken 10/18/20] multivitamin with minerals 1 tablet PO DAILY@0800 10/19/20 [History Last Taken 10/19/20] omega-3 fatty acids-fish oil 2 capsule PO BID@0800,1600 10/19/20 [History Last Taken 10/19/20] sennosides-docusate sodium 2 tablet PO QHS@199910/19/20 [History Last Taken 10/18/20] sodium chloride 2 spray NASAL Q2H PRN 10/19/20 [History Last Taken Unknown] tiotropium bromide 1 puff INHALATION DAILY 10/19/20 [History Last Taken 10/19/20] furosemide 40 mg PO QODAY@0800 #0 10/20/20 [Rx Last Taken Unknown] oxycodone-acetaminophen 1 tab PO Q6H PRN PRN 5 Days #20 tablet 01/06/21 [Rx Last Taken Unknown] vancomycin 250 mg PO DAILY 01/06/21 [History Last Taken Unknown] budesonide 9 mg tablet,delayed and extended release mg PO 01/28/21 [History Last Taken Unknown] omeprazole 40 mg capsule,delayed release 40 mg PO DAILY@0800 #90 cap 04/23/21 [Rx Last Taken Unknown] ondansetron HCl 4 mg tablet 4 mg PO Q8H PRN #60 tab 04/23/21 [Rx Last Taken Unknown] Allergy/AdvReac Type Severity Reaction Status Date / Time codeine AdvReac confused Verified 06/20/21 22:32 lisinopril AdvReac Other Verified 06/20/21 22:32 BETA DEAN Allergy Hives Uncoded 06/20/21 22:32 PAIN MEDICATION Allergy NEEDS Uncoded 06/20/21 22:32 FOLLOW-UP Family History Brother Leukemia Surgical History History of hip surgery Social History household members: spouse and other details: step son housing: house Smoking Status: Former smoker Tobacco: How many years used: 50 how long ago did patient quit smokin, 2ppd second hand exposure: Yes do you feel safe at home: Yes ROS ROS ED Constitutional Constitutional ED: Denies chills or fever(s) Eyes Eyes: Denies change in vision or diplopia ENT ENT ED: Denies rhinorrhea or sore throat Cardiovascular Cardiovascular: Denies chest pain or palpitations Respiratory/Chest Respiratory/Chest: Denies cough or dyspnea Gastrointestinal Gastrointestinal: Reports as per HPI, abdominal pain, nausea and vomiting; Denies diarrhea Genitourinary Genitourinary ED: Denies dysuria or hematuria Musculoskeletal Musculoskeletal: Reports back pain; Denies extremity pain or neck pain Integumentary Denies abscess or rash Neurologic Neurologic: Denies headache(s), paresthesias or weakness Psychiatric Psychiatric: Denies anxiety or suicidal thoughts EXAM Physical Exam Const Vital Signs: 06/20/21 22:32 06/20/21 22:37 Temperature 98.3 F Temperature Source Oral Pulse Rate 73 Respiratory Rate 18 Blood Pressure 177/90 H Blood Pressure Mean 119 Pulse Ox 95 Oxygen Delivery Method Nasal Cannula Oxygen Flow Rate (L/min) 2 Positive well nourished and well developed General Appearance ED: well developed and NAD HEENT Reports moist mucous membranes normocephalic and atraumatic Eyes PERRL and EOMs intact bilaterally Neck full ROM and supple Resp normal respiratory effort and clear to auscultation bilaterally Cardio regular rate, regular rhythm and no murmurs Rate: Negative for tachycardic GI non-tender and non-distended Auscultation: normoactive bowel sounds Palpation: soft Back/Spine Back/Spine Narrative: Mild right CVA tenderness. Normal inspection without rash. No CVA tenderness on the left. No midline tenderness. Full range of motion without discomfort. Extremity normal to inspection General Extremety ED: Negative for edema, pulses abnormal or tenderness General Extremity: Negative for edema or pulses abnormal Neuro CN's II-XII intact bilaterally and no sensory deficits noted Sensorium / Orientation: awake, alert, oriented to person and oriented to place; Negative for oriented to time Motor Exam: strength 5/5 throughout Skin no rashes or lesions noted and no wounds MDM MDM MDM Narrative Medical decision making narrative: Labs were obtained and noted. CT of the abdomen/pelvis without contrast was obtained, it shows nothing acute. His gallbladder was noted on the CT to be distended. I took the ED bedside ultrasound to the bedside to look at his gallbladder, it was very limited visualization due to lots of colonic stool and intestinal air. There is no sonographic Foster's in the general area of the right upper quadrant, I did not visualize the gallbladder well. I did not see any stones but the imaging was inadequate to rule these out. Patient indicates that this was not the location of his pain, which is minimal now, after morphine and Zofran he is feeling better. CT did show a significant amount of colonic stool, the patient states he thinks he last went yesterday and has not been constipated recently. He is wanting to go home. I do not see any emergent medical condition here, he certainly does not have acute cholecystitis and I am comfortable with him being discharged. Again the patient is on hospice and will continue to be so once he is back at home. Lab Data Attestation: I reviewed the patient's lab results. Labs: Laboratory Results - last 24 hr 06/20/21 06/20/21 06/21/21 23:42 23:42 00:00 WBC 7.0 RBC 4.25 L Hgb 12.2 L Hct 38.1 L MCV 89.6 MCH 28.7 MCHC 32.0 RDW Std Deviation 42.5 RDW Coeff of Mere 13.0 Plt Count 235 MPV 11.4 Immature Gran % (Auto) 0.300 Neut % (Auto) 72.5 H Lymph % (Auto) 15.0 L [place] % (Auto) 10.0 Eos % (Auto) 2.1 Baso % (Auto) 0.1 Absolute Neuts (auto) 5.1 Absolute Lymphs (auto) 1.05 Nucleated RBC % 0 Sodium 139 Potassium 3.9 Chloride 96 L Carbon Dioxide 35.0 H Anion Gap 8 BUN 27 H Creatinine 1.33 H Estim Creat Clear Calc 48.62 Est GFR (MDRD) Af Amer 67 Est GFR (MDRD) Non-Af 55 L BUN/Creatinine Ratio 20.3 H Glucose 146 H Calcium 10.0 Total Bilirubin 0.30 AST 14 L ALT 12 L Alkaline Phosphatase 86 Total Protein 6.8 Albumin 2.7 L Globulin 4.1 Albumin/Globulin Ratio 0.7 L Urine Color Yellow Urine Clarity Clear Urine pH 5.0 Ur Specific [place] 1.020 Urine Protein 30 H Urine Glucose (UA) Normal Urine Ketones 50 H Urine Occult Blood Negative Urine Nitrite Negative Urine Bilirubin Negative Urine Urobilinogen Normal Ur Leukocyte Esterase 25 H Urine RBC 0-5 SEEN Urine WBC 0 SEEN Ur Squamous Epith Cells 0 SEEN Urine Bacteria 1+ Hyaline Casts 0-5 SEEN Urine Mucus 0 SEEN Radiography Diagnostic Testing: Clinical Impression(s) from Imaging Studies Abdomen/Pelvis CT 06/20/21 22:59 IMPRESSION: Moderately distended gallbladder. Right renal cyst. Colonic fecal retention. Colonic diverticulosis. Small fatty umbilical hernia. Electronically Signed: Pete Cruz DO at 23:51 EST Tel [phone], Service support , Discharge Plan Triage Chief Complaint: Nausea/Vomiting Other Complaint: Abd Pain ED Provider: Den Junior Dx/Rx/DC Orders Clinical Impression: Right-sided abdominal pain of unknown cause Instructions: Abdominal Pain Prescriptions: No Action budesonide 9 mg tablet,delayed and ext.release PO RF: 0 omeprazole 40 mg capsule,delayed release(DR/EC) 40 mg PO DAILY@0800 Qty: 90 RF: 2 ondansetron HCl [Zofran] 4 mg tablet 4 mg PO Q8H PRN (Reason: nausea and vomiting) Qty: 60 RF: 1 budesonide-formoterol 1 INHALER inhaler 2 puff inhalation BID RF: 0 ipratropium-albuterol 3 ML solution for nebulization 3 ml inhalation Q6HWA.RT RF: 0 albuterol sulfate 1 INHALER inhaler 1 - 2 puff inhalation Q6H PRN PRN (Reason: Sob &/Or Wheezing) RF: 0 bimatoprost 1 DROP bottle 1 drp EACH EYE QHS RF: 0 ascorbic acid (vitamin C) 500 MG tablet 1,000 mg PO DAILY@0800 RF: 0 olopatadine 1 DROP bottle 1 drp EACH EYE DAILY RF: 0 aspirin 81 MG tablet,chewable 81 mg PO DAILY@0800 RF: 0 polyethylene glycol 3350 17 GM packet 17 g PO DAILY RF: 0 tramadol 50 MG tablet 50 mg PO QHS RF: 0 guaifenesin 600 MG tablet 600 mg PO BID@0800,2000 RF: 0 dorzolamide (PF) 10 ML drops 1 drp OP BID RF: 0 losartan 50 MG tablet 50 mg PO DAILY@0800 RF: 0 metformin 500 MG tablet 500 mg PO BIDCM@0800,1600 RF: 0 sennosides-docusate sodium 1 EACH tablet 2 tablet PO QHS@1999 RF: 0 gabapentin 800 MG tablet 800 mg PO QHS@1999 RF: 0 dicyclomine 20 MG tablet 20 mg PO BID@0800,1600 RF: 0 gabapentin 300 MG capsule 600 mg PO BID@0800,1600 RF: 0 gabapentin 300 MG capsule 300 mg PO QHS@2000 RF: 0 montelukast 10 MG tablet 10 mg PO DAILY@1600 RF: 0 multivitamin with minerals 1 EACH tablet 1 tablet PO DAILY@0800 RF: 0 fluticasone propionate 1 SPRAY spray,suspension 1 spray NASAL BID RF: 0 sodium chloride 1 SPRAY aerosol,spray 2 spray NASAL Q2H PRN (Reason: Sinus Congestion) RF: 0 calcium carbonate-vitamin D3 1 EACH tablet 1 tablet PO DAILY@0800 RF: 0 omega-3 fatty acids-fish oil 1 EACH capsule 2 capsule PO BID@0800,1600 RF: 0 tiotropium bromide 4 GM mist 1 puff INHALATION DAILY RF: 0 cyclosporine 5.5 ML drops 1 drp EACH EYE BID RF: 0 furosemide 40 MG tablet 40 mg PO QODAY@0800 Qty: 0 RF: 0 vancomycin 250 mg capsule 250 mg PO DAILY RF: 0 oxycodone-acetaminophen [oxycodone-acetaminophen] 1 TABLET tablet 1 tab PO Q6H PRN PRN (Reason: pain) 5 Days Qty: 20 RF: 0 Primary Care Provider: Kyra Mays Referrals: Kyra Mays MD [Primary Care Provider] - 3-5 Days if not improving Disposition Disposition: Home, Self Care
[2021-06-20] MEDS: Ondansetron 4 MG/2 ML Vial IV (23:08)
[2021-06-20] MEDS: Morphine 2 MG/ML Syringe IV (23:08)
[2021-06-20 23:50] LABS: Absolute Lymphocyte Count 1.05 X10^3/uL (0.83-4.51); Absolute Neutrophil Count 5.1 X10^3/uL (2.0-7.7); Basophil# 0.01 X10^3/uL; Basophil% 0.1 % (0-1); Eosinophil# 0.15 X10^3/uL; Eosinophils% 2.1 % (0-5); Hematocrit 38.1 % (40-54); Hemoglobin 12.2 g/dL (13.0-16.5); Lymphocyte # 1.05 X10^3/ul (0.83-4.51); Mean Corpuscular Hgb 28.7 pg (27.0-32.0); Mean Corpuscular Volume 89.6 fL (80-94); Mean Platelet Vol. 11.4 fl (6.2-12.0); NRBC Flagged by Analyzer 0 % (0-5); Neutrophil # 5.08 X10^3/uL (2.7-7.7); Neutrophil % 72.5 % (47-70); Platelet Count 235 K/mm3 (150-450); RBC Distribution Width SD 42.5 fl (35.1-43.9); Red Blood Count 4.25 M/mm3 (4.6-6.2)
[2021-06-21 00:02] LABS: Mucous, Urine 0 SEEN /hpf (<or=2+); Squamous Epithelial Cells - UA 0 SEEN /hpf (0-5); White Blood Cells 0 SEEN /hpf (0-5)
[2021-06-21 00:03] LABS: Color, Urine Yellow (Yellow); Glucose, Dipstick Normal (Normal); Ketone-Dipstick 50 mg/dl (Negative); Leukocyte Esterase-Dipstick 25 /ul (Negative); Nitrite-Dipstick Negative (Negative); Occult Blood-Urine Negative /ul (Negative); Protein-Dipstick 30 mg/dl (Negative); Urine Bilirubin Dipstick Negative (Negative); Urine Clarity Clear (Clear); Urine Urobilinogen Normal (Normal)
[2021-06-21 00:13] LABS: ALB/GLOB Ratio 0.7 RATIO (0.9-2.4); AST(SGOT) 14 U/L (15-37); Alanine Aminotransfer ALT/SGPT 12 U/L (16-61); Albumin, Serum 2.7 g/dL (3.2-5.0); Alkaline Phosphatase 86 U/L (45-117); Anion Gap 8 (5-15); BUN 27 mg/dL (7-18); BUN/Creat Ratio 20.3 RATIO (10-20); Chloride 96 mmol/L (98-107); Creatinine, Serum 1.33 mg/dL (0.70-1.30); EST Glomerular Filtration Rate 55 mL/min (>60); Est Glom Filt Rate - Afr Amer 67 mL/min (>60); Estimated Creatinine Clearance 48.62 ml/min; Globulin 4.1 g/dL (2.2-4.2); Glucose 146 mg/dL (74-106); Potassium 3.9 mmol/L (3.5-5.1); Protein, Total 6.8 g/dL (6.4-8.2); Sodium Level 139 mmol/L (136-145)
[2021-06-21 00:20] LABS: Bacteria 1+ /hpf (None Seen); Hyaline Cast 0-5 SEEN /lpf (0-5); Red Blood Cells-Urine 0-5 SEEN /hpf (0-5)
== END 2021-06-21 04:06 | disposition home or self-care (01) ==
PROVIDERS: Emergency Provider Emergency Medicine; PCP Internal Medicine
DX: R10.31 Right lower quadrant pain (principal); R11.2 Nausea with vomiting, unspecified; J96.10 Chronic respiratory failure, unspecified whether with hypoxia or hypercapnia; J44.9 Chronic obstructive pulmonary disease, unspecified; I12.9 Hypertensive chronic kidney disease with stage 1 through stage 4 chronic kidney disease, or unspecified chronic kidney disease; E11.22 Type 2 diabetes mellitus with diabetic chronic kidney disease; N18.30 Chronic kidney disease, stage 3 unspecified; E78.5 Hyperlipidemia, unspecified; M25.559 Pain in unspecified hip; G89.29 Other chronic pain; E66.01 Morbid (severe) obesity due to excess calories; Z79.84 Long term (current) use of oral hypoglycemic drugs; Z79.82 Long term (current) use of aspirin; Z79.899 Other long term (current) drug therapy; Z85.46 Personal history of malignant neoplasm of prostate; Z87.891 Personal history of nicotine dependence
CPT/HCPCS: 74176; 80053; 81001; 85025; 96374; 96375; 99285; A4216; J2405